=== PATIENT | male | born 1955 | race Caucasian/White ===

== ENCOUNTER 2019-03-09 17:55 | Emergency (ER) | payer OTHER ==
[2019-03-09] MEDS ORDERED: Sodium Chloride 0.9% 1000 ML 1,000 ML IV STA (18:45)
[2019-03-09] MEDS ORDERED: DUONEB 0.5-3 MG/3 ml Neb IH ONE ×2 (18:47→19:36)
[2019-03-09] MEDS ORDERED: Sodium Chloride 0.9% 1000 ML 1,000 ML ONE ×2 (18:52→20:42)
--- NOTE | 2019-03-09 18:53 | ERPHSYRPT ---
- History of Present Illness Time Seen by Provider: 03/09/19 18:48 Source: patient, family, EMS Patient Subjective Stated Complaint: Hyperglycemia Triage Nursing Assessment: Patient brought into ED via EMS and transferred to bed with assist of 1. Patient complains of hyperglycemia. Patient states he started vomiting and diarrhea on Tuesday. Patient states he has not taken any insulin since Tuesday. Patient states he feels weak. Patient's lungs clear a/p donna. No edema noted. Heart tones audible. Patient complains of generalized weakness 5/10 constant aching. Blood sugar reading HI on the meter. Physician History: 63 years old male with history of diabetes mellitus poorly controlled on multiple medication including insulin,hypertension, tobacco use presented in the ER with chief complaint of hyperglycemia with generalized weakness and fatigue. Patient reports he had sudden onset nausea with vomiting once and dry heaving along with abdominal pain and couple of episodes of loose stool 5 days ago. Since then he has not been eating and drinking. He has not taken his insulin since then. Her that she would usually stays below 300 but today was more than 300s when checked by EMS. He is complaining of mild abdominal soreness along with generalized feeling of tiredness no energy to do his routine activities. Denies any fever or chills. Subjective feeling of low- grade fever chills and malaise. Timing/Duration: day(s) (5), intermittent, sudden, worse Severity: moderate Associated Symptoms: nausea, vomiting Allergies/Adverse Reactions: No Known Drug Allergies Allergy (Verified 03/09/19 18:11) Home Medications: Aliskiren/Amlodipine Besylate [Tekamlo 300 mg-5 mg Tablet] 1 each PO DAILY 12/23 [History] Candesartan/Hydrochlorothiazid [Atacand Hct 32-12.5 mg Tab] 1 tab PO BID [History] Esomeprazole Magnesium [Nexium] 40 mg PO DAILY 12/23/12 [History] Fenofibrate [Lipofen] 150 mg PO DAILY 12/23/12 [History] Glimepiride 2 mg [Amaryl 2 MG] 2 mg PO DAILY 12/23/12 [History] Insulin Glargine [Lantus Insulin] 45 unit SQ HS 12/23/12 [History] Metformin HCl [Glumetza] 1,000 mg PO DAILY 12/23/12 [History] Naproxen Sodium 220 mg [Aleve 220 MG] 220 mg PO Q12H PRN PRN 12/23/12 [ History] Sitagliptin Phosphate [Januvia] 100 mg PO DAILY 12/23/12 [History] Hx Tetanus, Diphtheria Vaccination/Date Given: (UNKNOWN) Hx Influenza Vaccination/Date Given: Yes Hx Pneumococcal Vaccination/Date Given: No Immunizations Up to Date: Yes - Review of Systems Constitutional: Fever, Chills, Fatigue, Malaise, Weakness Eyes: No Symptoms Ears, Nose, & Throat: No Symptoms Respiratory: Cough, Wheezing Cardiac: No Symptoms Abdominal/Gastrointestinal: Abdominal Pain, Nausea, Vomiting, Diarrhea Genitourinary Symptoms: No Symptoms Musculoskeletal: Myalgias Skin: No Symptoms Neurological: No Symptoms Psychological: No Symptoms Endocrine: No Symptoms Hematologic/Lymphatic: No Symptoms Immunological/Allergic: No Symptoms - Past Medical History Pertinent Past Medical History: Yes Neurological History: No Pertinent History Cardiac History: High Cholesterol, Hypertension Endocrine Medical History: Diabetes Type II Musculoskeletal History: No Pertinent History GI Medical History: GERD, Hemorrhoids History: No Pertinent History Psycho-Social History: No Pertinent History Male Reproductive Disorders: No Pertinent History - Past Surgical History Past Surgical History: Yes Genitourinary: Other Other Surgical History: KIDNEY STONE - Social History Smoking Status: Current every day smoker How long have you smoked: years Exposure to second hand smoke: No Drug Use: none Patient Lives Alone: No - Nursing Vital Signs Nursing Vital Signs: Initial Vital Signs Temperature 97.5 F 03/09/19 18:12 Pulse Rate 106 H 03/09/19 18:12 Respiratory Rate 18 03/09/19 18:12 Blood Pressure 139/54 03/09/19 18:12 O2 Sat by Pulse Oximetry 99 03/09/19 18:12 Pain Scale Pain Intensity 5 - Physical Exam General Appearance: no apparent distress Eye Exam: PERRL/EOMI, eyes nml inspection Ears, Nose, Throat Exam: normal ENT inspection, TMs normal, pharyngeal erythema Neck Exam: normal inspection, non-tender, supple, full range of motion Respiratory Exam: normal breath sounds, lungs clear, airway intact, No chest tenderness Cardiovascular Exam: regular rate/rhythm, normal heart sounds, capillary refill <2 sec Gastrointestinal/Abdomen Exam: soft, normal bowel sounds, No tenderness, No distention, No mass, No guarding Back Exam: normal inspection Extremity Exam: normal inspection, normal range of motion, pelvis stable Neurologic Exam: alert, oriented x 3, cooperative, channel process supervisor II-XII nml as tested, other (flat affect) Skin Exam: normal color SpO2 Interpretation: normal SpO2: 99 O2 Delivery: Room Air - Course Nursing assessment & vital signs reviewed: Yes EKG Interpreted by Me: RATE (100), Sinus Rhythm, Right Harleigh Deviation, NORMAL INTERVALS, Non-specific ST Changes Ordered Tests: Active Orders 24 hr Category Date Time Status EKG-ER Only STAT Care 03/09/19 18:45 Active EKG-ER Only STAT Care 03/09/19 18:53 Active IV Insertion STAT Care 03/09/19 18:45 Active NPO (ED) STAT Care 03/09/19 18:45 Active OBSTR/ACUTE ABDOMEN SERIES Stat Exams 03/09/19 18:46 Taken BLOOD CULTURE Stat Lab 03/09/19 19:38 Received CBC W DIFF Stat Lab 03/09/19 19:38 Completed CMP Stat Lab 03/09/19 19:38 Completed LIPASE Stat Lab 03/09/19 19:38 Completed Lactic Acid Stat Lab 03/09/19 19:40 Completed Manual Differential NC Stat Lab 03/09/19 19:38 Completed TROPONIN Q3H Lab 03/09/19 19:38 Completed TROPONIN Q3H Lab 03/09/19 22:00 Ordered TROPONIN Q3H Lab 03/10/19 01:00 Ordered TROPONIN Q3H Lab 03/10/19 04:00 Ordered TROPONIN Q3H Lab 03/10/19 07:00 Ordered UA W/RFX UR CULTURE Stat Lab 03/09/19 19:54 Completed VENOUS BLOOD GAS Stat Lab 03/09/19 19:40 Completed Respiratory Therapy Assessment DAILY RT 03/09/19 20:02 Active Medication Summary Generic Name Dose Route Start Last Admin Trade Name Freq PRN Reason Stop Dose Admin Piperacillin Sod/Tazobactam 100 mls @ 100 mls/hr 03/09/19 19:54 Sod 3.375 gm/ Dextrose IV 03/09/19 20:53 STAT ONE Sodium Chloride 1,000 mls @ 150 mls/hr 03/09/19 20:00 03/09/19 20:42 Sodium Chloride 0.9% 1000 Ml IV 04/08/19 19:59 150 mls/hr .[id number] YANN Administration Discontinued Medications Generic Name Dose Route Start Last Admin Trade Name Freq PRN Reason Stop Dose Admin Albuterol Sulfate 2.5 mg 03/09/19 19:52 Proventil 2.5 Mg/3 Ml Neb IH 03/09/19 19:53 STAT ONE Albuterol/Ipratropium 3 ml 03/09/19 18:47 03/09/19 19:37 Duoneb 0.5-3 Mg/3 Ml Neb IH 03/09/19 18:48 3 ml STAT ONE Administration Albuterol/Ipratropium Confirm 03/09/19 19:36 Duoneb 0.5-3 Mg/3 Ml Neb Administered 03/09/19 19:37 Dose 3 ml IH .STK-MED ONE Calcium Gluconate 1,000 mg 03/09/19 19:52 03/09/19 20:10 Calcium Gluconate 10% 1000 Mg IV 03/09/19 19:53 1,000 mg STAT ONE Administration Calcium Gluconate Confirm 03/09/19 20:03 Calcium Gluconate 10% 1000 Mg Administered 03/09/19 20:04 Dose 1,000 mg IV .STK-MED ONE Dextrose 50 ml 03/09/19 19:52 D50w 50 Ml Abboject IV 03/09/19 19:53 STAT ONE Sodium Chloride 1,000 mls @ 999 mls/hr 03/09/19 18:45 03/09/19 19:01 Sodium Chloride 0.9% 1000 Ml IV 03/09/19 19:45 100 mls/hr .Q1H1M STA Administration Sodium Chloride Confirm 03/09/19 18:52 Sodium Chloride 0.9% 1000 Ml Administered 03/09/19 18:53 Dose 1,000 mls @ ud .ROUTE .STK-MED ONE Piperacillin Sod/Tazobactam Sod Confirm 03/09/19 20:24 Zosyn 3.375gm/100 Ml D5w Administered 03/09/19 20:25 Dose 3.375 gm in 100 mls @ ud IV .STK-MED ONE Insulin Human Regular 10 unit 03/09/19 19:52 03/09/19 20:20 Novolin R IV 03/09/19 19:53 Not Given STAT ONE Insulin Human Regular 8 unit 03/09/19 19:55 03/09/19 20:20 Novolin R IV 03/09/19 19:56 8 unit STAT ONE Administration Insulin Human Regular Confirm 03/09/19 20:04 Novolin R Administered 03/09/19 20:05 Dose 8 unit .ROUTE .STK-MED ONE Sodium Bicarbonate 50 meq 03/09/19 19:51 03/09/19 20:20 Sodium Bicarbonate 50 Meq/50 Ml Abboject IV 03/09/19 19:52 50 meq STAT ONE Administration Sodium Bicarbonate Confirm 03/09/19 20:04 Sodium Bicarbonate 50 Meq/50 Ml Vial Administered 03/09/19 20:05 Dose 50 meq .ROUTE .STK-MED ONE Sodium Polystyrene Sulfonate 30 g 03/09/19 19:52 Kayexylate 15 Gm/60 Ml PO 03/09/19 19:53 STAT ONE Sodium Polystyrene Sulfonate Confirm 03/09/19 20:04 Kayexylate 15 Gm/60 Ml Administered 03/09/19 20:05 Dose 30 g .ROUTE .STK-MED ONE Lab/Rad Data: Laboratory Result Diagrams 03/09/19 19:38 03/09/19 19:38 Laboratory Results 03/09/19 03/09/19 03/09/19 Range/Units 19:54 19:50 19:40 WBC (4.0-10.5) K/mm3 RBC (4.1-5.6) M/mm3 Hgb (12.5-18.0) gm/dl Hct (42-50) % MCV (78-100) fl MCH (26-32) pg MCHC (32-36) g/dl RDW (11.5-14.0) % Plt Count (150-450) K/mm3 MPV (7.5-11.0) fl Segmented Neutrophils (36.-66.) % Band Neutrophils (0.0-2.0) % Lymphocytes (Manual) (24-44) % Monocytes (Manual) (0.0-12.0) % Platelet Estimate (NORMAL) RBC Morphology pO2/FiO2 Ratio 21.0 % VBG pH 6.95 L* (7.32-7.42) VBG pCO2 at Pat Temp 21 L* (42-55) mm/Hg VBG pO2 at Pat Temp 76 H (25-40) mm/Hg VBG HCO3 4.6 L* (22-28) meq/L VBG O2 Sat (Lillian) 93.7 L (95-100) VBG Base Excess -26.2 L (-2.0-2.0) VBG Hemoglobin 17.1 VBG Carboxyhemoglobin 5.2 (0.0-6.9) % T HGB POC Potassium 6.2 H* (3.5-5.1) Sodium (137-145) mmol/L Potassium (3.5-5.1) mmol/L Chloride (98-107) mmol/L Carbon Dioxide (22-30) mmol/L BUN (9-20) mg/dL Creatinine (0.66-1.25) mg/dL Estimated GFR ML/MIN Glucose (74-106) mg/dL Lactic Acid (0.4-2.0) Calcium (8.4-10.2) mg/dL Total Bilirubin (0.2-1.3) mg/dL AST (17-59) U/L ALT (0-50) U/L Alkaline Phosphatase (38-126) U/L Troponin I (0.000-0.034) ng/mL Serum Total Protein (6.3-8.2) g/dL Albumin (3.5-5.0) g/dL Lipase (23-300) U/L Urine Color STRAW (YELLOW) Urine Appearance CLEAR (CLEAR) Urine pH 5.0 (5-6) Ur Specific [place] 1.021 (1.005-1.025) Urine Protein NEGATIVE (Negative) Urine Ketones MODERATE (NEGATIVE) Urine Blood MODERATE (0-5) Addy/ul Urine Nitrite NEGATIVE (NEGATIVE) Urine Bilirubin NEGATIVE (NEGATIVE) Urine Urobilinogen NEGATIVE (0-1) mg/dL Ur Leukocyte Esterase NEGATIVE (NEGATIVE) Urine WBC (Auto) 0-2 (0-5) /HPF Urine RBC (Auto) NONE (0-2) /HPF U Epithel Cells (Auto) NONE (FEW) /HPF Urine Bacteria (Auto) NONE (NEGATIVE) /HPF Urine Mucus (Auto) SLIGHT (NEGATIVE) /HPF Urine Culture Reflexed NO (NO) Urine Glucose >=500 (NEGATIVE) mg/dL Influenza Type A Ag NEGATIVE (NEGATIVE) Influenza Type B Ag NEGATIVE (NEGATIVE) RSV (PCR) NEGATIVE (Negative) 03/09/19 03/09/19 03/09/19 Range/Units 19:40 19:38 19:38 WBC (4.0-10.5) K/mm3 RBC (4.1-5.6) M/mm3 Hgb (12.5-18.0) gm/dl Hct (42-50) % MCV (78-100) fl MCH (26-32) pg MCHC (32-36) g/dl RDW (11.5-14.0) % Plt Count (150-450) K/mm3 MPV (7.5-11.0) fl Segmented Neutrophils (36.-66.) % Band Neutrophils (0.0-2.0) % Lymphocytes (Manual) (24-44) % Monocytes (Manual) (0.0-12.0) % Platelet Estimate (NORMAL) RBC Morphology pO2/FiO2 Ratio % VBG pH (7.32-7.42) VBG pCO2 at Pat Temp (42-55) mm/Hg VBG pO2 at Pat Temp (25-40) mm/Hg VBG HCO3 (22-28) meq/L VBG O2 Sat (Lillian) (95-100) VBG Base Excess (-2.0-2.0) VBG Hemoglobin VBG Carboxyhemoglobin (0.0-6.9) % T HGB POC Potassium (3.5-5.1) Sodium 132 L (137-145) mmol/L Potassium 5.9 H (3.5-5.1) mmol/L Chloride 91 L (98-107) mmol/L Carbon Dioxide < 5 L* (22-30) mmol/L BUN 57 H (9-20) mg/dL Creatinine 2.61 H (0.66-1.25) mg/dL Estimated GFR 26.4 ML/MIN Glucose 820 H* (74-106) mg/dL Lactic Acid 3.5 H (0.4-2.0) Calcium 9.8 (8.4-10.2) mg/dL Total Bilirubin 0.50 (0.2-1.3) mg/dL AST 21 (17-59) U/L ALT 23 (0-50) U/L Alkaline Phosphatase 134 H (38-126) U/L Troponin I < 0.012 (0.000-0.034) ng/mL Serum Total Protein 8.2 (6.3-8.2) g/dL Albumin 4.7 (3.5-5.0) g/dL Lipase 696 H (23-300) U/L Urine Color (YELLOW) Urine Appearance (CLEAR) Urine pH (5-6) Ur Specific [place] (1.005-1.025) Urine Protein (Negative) Urine Ketones (NEGATIVE) Urine Blood (0-5) Addy/ul Urine Nitrite (NEGATIVE) Urine Bilirubin (NEGATIVE) Urine Urobilinogen (0-1) mg/dL Ur Leukocyte Esterase (NEGATIVE) Urine WBC (Auto) (0-5) /HPF Urine RBC (Auto) (0-2) /HPF U Epithel Cells (Auto) (FEW) /HPF Urine Bacteria (Auto) (NEGATIVE) /HPF Urine Mucus (Auto) (NEGATIVE) /HPF Urine Culture Reflexed (NO) Urine Glucose (NEGATIVE) mg/dL Influenza Type A Ag (NEGATIVE) Influenza Type B Ag (NEGATIVE) RSV (PCR) (Negative) 03/09/19 Range/Units 19:38 WBC 18.2 H (4.0-10.5) K/mm3 RBC 6.03 H (4.1-5.6) M/mm3 Hgb 17.0 (12.5-18.0) gm/dl Hct 55.0 H (42-50) % MCV 91.2 (78-100) fl MCH 28.2 (26-32) pg MCHC 30.9 L (32-36) g/dl RDW 15.4 H (11.5-14.0) % Plt Count 294 (150-450) K/mm3 MPV 11.7 H (7.5-11.0) fl Segmented Neutrophils 80 H (36.-66.) % Band Neutrophils 8 H (0.0-2.0) % Lymphocytes (Manual) 3 L (24-44) % Monocytes (Manual) 9 (0.0-12.0) % Platelet Estimate NORMAL (NORMAL) RBC Morphology NORMAL pO2/FiO2 Ratio % VBG pH (7.32-7.42) VBG pCO2 at Pat Temp (42-55) mm/Hg VBG pO2 at Pat Temp (25-40) mm/Hg VBG HCO3 (22-28) meq/L VBG O2 Sat (Lillian) (95-100) VBG Base Excess (-2.0-2.0) VBG Hemoglobin VBG Carboxyhemoglobin (0.0-6.9) % T HGB POC Potassium (3.5-5.1) Sodium (137-145) mmol/L Potassium (3.5-5.1) mmol/L Chloride (98-107) mmol/L Carbon Dioxide (22-30) mmol/L BUN (9-20) mg/dL Creatinine (0.66-1.25) mg/dL Estimated GFR ML/MIN Glucose (74-106) mg/dL Lactic Acid (0.4-2.0) Calcium (8.4-10.2) mg/dL Total Bilirubin (0.2-1.3) mg/dL AST (17-59) U/L ALT (0-50) U/L Alkaline Phosphatase (38-126) U/L Troponin I (0.000-0.034) ng/mL Serum Total Protein (6.3-8.2) g/dL Albumin (3.5-5.0) g/dL Lipase (23-300) U/L Urine Color (YELLOW) Urine Appearance (CLEAR) Urine pH (5-6) Ur Specific [place] (1.005-1.025) Urine Protein (Negative) Urine Ketones (NEGATIVE) Urine Blood (0-5) Addy/ul Urine Nitrite (NEGATIVE) Urine Bilirubin (NEGATIVE) Urine Urobilinogen (0-1) mg/dL Ur Leukocyte Esterase (NEGATIVE) Urine WBC (Auto) (0-5) /HPF Urine RBC (Auto) (0-2) /HPF U Epithel Cells (Auto) (FEW) /HPF Urine Bacteria (Auto) (NEGATIVE) /HPF Urine Mucus (Auto) (NEGATIVE) /HPF Urine Culture Reflexed (NO) Urine Glucose (NEGATIVE) mg/dL Influenza Type A Ag (NEGATIVE) Influenza Type B Ag (NEGATIVE) RSV (PCR) (Negative) - Progress Progress: improved, re-examined Progress Note: 63 years old is brought in the ER for elevated blood sugar. Patient was mildly tachycardic and tachypneic on presentation. He is given IV fluids. Accu-Chek was reading high. Workup showed pH 6.9 with bicarbonate less than 5 and potassium of 5.9. He has a blood sugar of 820 with acute renal failure with creatinine of 2.6. He is given 8 units of insulin bolus and started on insulin drip. EKG showed normal sinus rhythm with no acute ST elevation. Patient denies any chest pain. Troponins are negative. I believe elevated potassium is secondary to lack of insulin but I have also given him a dose of calcium as well. I believe off her insulin and fluids potassium will improve. I hope they did x-rays of chest and abdomen wwith no obvious pathology. Abdomen is soft nontender. Has elevated white count 18 and hemoglobin 17 which I believe is reactive plus volume contraction. Has a lactate of 3.5 which is because of general acidemia but have given a does of antibiotic as well.Discussed with Dr. Maza, recommended transfer to . Discussed with the patient is accepted for transfer. Plan discussed with patient and family in detail who understand and agree with it. 03/09/19 20:[address] Ed Counseled pt/family regarding: lab results, diagnosis - Departure Departure Disposition: Transfer Clinical Impression: Hyperkalemia DKA (diabetic ketoacidoses) Qualifiers: Diabetes mellitus type: type 2 Diabetes mellitus complication detail: without coma Qualified Code(s): E11.10 - Type 2 diabetes mellitus with ketoacidosis without coma Sepsis Qualifiers: Sepsis type: sepsis due to unspecified organism Sepsis acute organ dysfunction status: with acute organ dysfunction Severe sepsis acute organ dysfunction type : acute renal failure Acute renal failure type: unspecified Severe sepsis shock status: without septic shock Qualified Code(s): A41.9 - Sepsis, unspecified organism; R65.20 - Severe sepsis without septic shock; N17.9 - Acute kidney failure, unspecified Condition: Fair Critical Care Time: Yes Critical Care Time(excluding separately billable procedures): Critical 75-104 mins Referrals: MAXWELL CASAS MD [Primary Care Provider] -
[2019-03-09 19:40] LABS: Mean Cell Volume 91.2 fl (78-100); Mean Corpuscular Hemoglobin 28.2 pg (26-32); Mean Corpuscular Hgb Concent. 30.9 g/dl (32-36); Mean Platelet Volume 11.7 fl (7.5-11.0); Platelet Count 294 K/mm3 (150-450); Red Blood Count 6.03 M/mm3 (4.1-5.6); Red Cell Distribution Width 15.4 % (11.5-14.0); White Blood Count 18.2 K/mm3 (4.0-10.5)
[2019-03-09 19:48] LABS: VBG BASE EXCESS -26.2 (-2.0-2.0); VBG CARBOXYHEMOGLOBIN 5.2 % T HGB (0.0-6.9); VBG HCO3- 4.6 meq/L (22-28); VBG HEMOGLOBIN 17.1; VBG O2 SATURATION 93.7 (95-100)
[2019-03-09 19:49] LABS: VBG POTASSIUM 6.2 (3.5-5.1); VBG pH 6.95 (7.32-7.42)
[2019-03-09] MEDS ORDERED: SODIUM BICARBONATE 50 MEQ/50 ML ABBOJECT IV ONE (19:51)
[2019-03-09] MEDS ORDERED: Calcium Gluconate 10% 1000 MG IV ONE ×2 (19:52→20:03)
[2019-03-09] MEDS ORDERED: Kayexylate 15 GM/60 ML PO ONE (19:52)
[2019-03-09] MEDS ORDERED: NovoLIN R IV ONE ×2 (19:52→19:55)
[2019-03-09] MEDS ORDERED: PROVENTIL 2.5 MG/3 ML NEB IH ONE (19:52)
[2019-03-09] MEDS ORDERED: D50W 50 ml Abboject IV ONE (19:52)
[2019-03-09 19:54] LABS: ALBUMIN 4.7 g/dL (3.5-5.0); ALKALINE PHOSPHATASE 134 U/L (38-126); BLOOD UREA NITROGEN 57 mg/dL (9-20); CHLORIDE 91 mmol/L (98-107); Calcium 9.8 mg/dL (8.4-10.2); Creatinine 1 2.61 mg/dL (0.66-1.25); LIPASE 696 U/L (23-300); SGOT/AST 21 U/L (17-59); SGPT/ALT 23 U/L (0-50); SODIUM 132 mmol/L (137-145); Total Protein 8.2 g/dL (6.3-8.2)
[2019-03-09] MEDS ORDERED: ZOSYN IV ONE (19:54)
[2019-03-09] MEDS ORDERED: D5W MINI IV ONE (19:54)
[2019-03-09] MEDS ORDERED: Sodium Chloride 0.9% 1000 ML 1,000 ML IV SCH (20:00)
[2019-03-09] MEDS ORDERED: Kayexylate 15 GM/60 ML ONE (20:04)
[2019-03-09] MEDS ORDERED: Sodium Bicarbonate 50 MEQ/50 ML VIAL ONE (20:04)
[2019-03-09] MEDS ORDERED: NovoLIN R ONE ×2 (20:04→20:49)
[2019-03-09 20:07] LABS: Appearance CLEAR (CLEAR); Bilirubin NEGATIVE (NEGATIVE); Blood MODERATE Ery/ul (0-5); Glucose >=500 mg/dL (NEGATIVE); Ketones MODERATE (NEGATIVE); Leukocyte Esterase NEGATIVE (NEGATIVE); Mucus SLIGHT /HPF (NEGATIVE); Nitrite NEGATIVE (NEGATIVE); Protein,Urine Dip NEGATIVE (Negative); Specific Gravity 1.021 (1.005-1.025); Urobilinogen NEGATIVE mg/dL (0-1); WBC 0-2 /HPF (0-5)
[2019-03-09 20:16] LABS: Glucose 820 mg/dL (74-106)
[2019-03-09 20:17] LABS: BAND 8 % (0.0-2.0); Carbon Dioxide < 5 mmol/L (22-30); Lymphocytes 3 % (24-44); Monocyte 9 % (0.0-12.0); Neutrophils 80 % (36.-66.); Potassium 5.9 mmol/L (3.5-5.1); Total Cells Counted 100
[2019-03-09 20:18] LABS: Platelet Estimate NORMAL (NORMAL)
[2019-03-09 20:21] LABS: INFLUENZA A NEGATIVE (NEGATIVE); INFLUENZA B NEGATIVE (NEGATIVE); RESPIRATORY SYNCTIAL VIRUS NEGATIVE (Negative)
[2019-03-09] MEDS ORDERED: Zosyn 3.375GM/100 Ml D5W 3.375 GM/100 ML IVPB IV ONE (20:24)
[2019-03-09] MEDS ORDERED: NOVOLIN R INSULIN (FOR DRIPS)** 100 UNITS in Sodium Chloride 0.9% 100 ML IVPB 100 ML IV PRN (20:45)
[2019-03-09] MEDS ORDERED: Sodium Chloride 0.9% 100 ML IVPB 100 ML IV ONE (20:49)
[2019-03-09 21:08] VITALS: BP 146/59; PULSE 102; O2SAT 98
--- NOTE | 2019-03-10 07:44 | XRAY ---
Indication: Abdomen pain and nausea. Comparison: None 2 views of the abdomen nonacute and nonobstructed. At least 2 gallstones, largest 1.5 cm. Remaining solid organs are unremarkable. Osseous structures intact with mild degenerative changes throughout the thoracolumbar spine. Single PA chest demonstrates normal heart and lungs with incidental small mediastinal calcified nodes. Bony thorax intact with mild degenerative changes. Impression: 1. Cholelithiasis. Gallbladder sonogram may yield further information if clinically warranted. 2. Nonacute one view chest.
== END 2019-03-09 21:20 | disposition short-term general hospital (02) ==
LOC: ED 17:55
DX: E87.5 Hyperkalemia (principal); E11.10 Type 2 diabetes mellitus with ketoacidosis without coma; A41.9 Sepsis, unspecified organism; R65.20 Severe sepsis without septic shock; N17.9 Acute kidney failure, unspecified
CPT/HCPCS: 36000; 36415; 74022; 80053; 81001; 82805; 83605; 83690; 84484; 85025; 87040; 87631; 93005; 94640; 96360; 96361; 96365; 96368; 96374; 96375; 99285; 99291; 99292; J0610; J1815; J2543; A9270-GY

== ENCOUNTER 2024-10-18 11:43 | Inpatient (IN) | payer MEDICARE ==
--- NOTE | 2024-10-18 12:08 | ERPHSYRPT ---
- History of Present Illness Time Seen by Provider: 10/18/24 11:55 Source: patient, EMS Exam Limitations: clinical condition Patient Subjective Stated Complaint: PT HERE HIGH BLOOD SUGAR TODAY, HOME HEALTH CARE IS UNSURE IF HE IS TAKING HES MEDS RIGHT, WAS RELEASED FROM [facility] YESTERDAY. PT IS A POOR HISTOIRAN Triage Nursing Assessment: PT ARRIVED PER EMS ALERT, RESP LABORED AT TIMES, RESP EASY, SKIN W/D/P. CHEST CLEAR, ABD SOFT, MOVES ALL EXT WELL Physician History: Patient is a 69-year-old diabetic male coming in with generalized weakness and elevated sugars. Patient has had multiple falls, denies any head injury however is supposedly on possible blood thinners. Patient was recently seen and admitted at [facility] for a stroke workup. Patient is unaware of his diagnosis afterwards. States that he was told to not take some of his diabetic medication. Home health aide that came to see him today did not feel the patient was doing adequately to stay at home on his own and saw that the patient's glucose was elevated therefore called EMS. Patient is currently complaining of low back pain post fall. Allergies/Adverse Reactions: No Known Drug Allergies Allergy (Verified 10/18/24 12:25) Home Medications: Aliskiren/Amlodipine Besylate [Tekamlo 300 mg-5 mg Tablet] 1 each PO DAILY 12/23/12 [History] Candesartan/Hydrochlorothiazid [Atacand Hct 32-12.5 mg Tab] 1 tab PO BID 12/23/12 [History] Esomeprazole Magnesium [Nexium] 40 mg PO DAILY 12/23/12 [History] Fenofibrate [Lipofen] 150 mg PO DAILY 12/23/12 [History] Glimepiride 2 mg [Amaryl 2 MG] 2 mg PO DAILY 12/23/12 [History] Insulin Glargine [Lantus Insulin] 45 unit SQ HS 12/23/12 [History] Metformin HCl [Glumetza] 1,000 mg PO DAILY 12/23/12 [History] Naproxen Sodium 220 mg [Aleve 220 MG] 220 mg PO Q12H PRN PRN 12/23/12 [History] Sitagliptin Phosphate [Januvia] 100 mg PO DAILY 12/23/12 [History] Hx Tetanus, Diphtheria Vaccination/Date Given: (UNKNOWN) Hx Influenza Vaccination/Date Given: Yes Hx Pneumococcal Vaccination/Date Given: No Immunizations Up to Date: Yes Travel Risk - International Travel Have you traveled outside of the country in past 3 weeks: No - Emerging Infectious Disease Are you exhibiting symptoms associated with any current EIDs: No - Review of Systems Constitutional: Lethargy, Malaise Eyes: No Symptoms Ears, Nose, & Throat: No Symptoms Respiratory: Cough Cardiac: No Symptoms Abdominal/Gastrointestinal: Nausea, Vomiting Genitourinary Symptoms: Frequency Musculoskeletal: No Symptoms Skin: No Symptoms Neurological: Dizziness Psychological: No Symptoms Endocrine: Polyuria - Past Medical History Pertinent Past Medical History: Yes Neurological History: No Pertinent History Cardiac History: High Cholesterol, Hypertension Endocrine Medical History: Diabetes Type II Musculoskeletal History: No Pertinent History GI Medical History: GERD, Hemorrhoids History: No Pertinent History Psycho-Social History: No Pertinent History Male Reproductive Disorders: No Pertinent History - Past Surgical History Past Surgical History: Yes Genitourinary: Other Other Surgical History: KIDNEY STONE - Social History Smoking Status: Current every day smoker How long have you smoked: years Exposure to second hand smoke: Yes Drug Use: none - Social Determinants of Health Will the patient participate in the screening: Declined to provide - Nursing Vital Signs Nursing Vital Signs: Initial Vital Signs O2 Sat by Pulse Oximetry 100 10/18/24 11:48 Pain Scale Pain Intensity 3 - Physical Exam General Appearance: moderate distress, lethargy Eye Exam: PERRL/EOMI Ears, Nose, Throat Exam: dry mucous membranes Neck Exam: normal inspection Respiratory Exam: diminished breath sounds Cardiovascular Exam: tachycardia Gastrointestinal/Abdomen Exam: soft, normal bowel sounds Back Exam: normal inspection Extremity Exam: normal inspection Neurologic Exam: alert, oriented x 3, cooperative Skin Exam: dry SpO2 Interpretation: normal SpO2: 98 O2 Delivery: Nasal Cannula - Course Nursing assessment & vital signs reviewed: Yes EKG Interpreted by Me: RATE (98), Sinus Rhythm, Right [place] Deviation, NORMAL INTERVALS, NORMAL QRS, NORMAL ST-T - Radiology Exams Chest X-ray Interpretation: Teleradiologist Report - CT Exams Head CT Interpretation: Tele-radiologist Report Abdomen/Pelvis CT Interpretation: Tele-radiologist Report Ordered Tests: Active Orders 24 hr Category Date Time Status EKG-ER Only STAT Care 10/18/24 11:49 Active IV Insertion STAT Care 10/18/24 11:49 Active ABDOMEN AND PELVIS W/0 CONTRAS [CT] Stat Exams 10/18/24 11:51 Completed CHEST 1 VIEW (PORTABLE) Stat Exams 10/18/24 11:49 Completed HEAD WITHOUT CONTRAST [CT] Stat Exams 10/18/24 11:51 Completed ARTERIAL BLOOD GASES Stat Lab 10/18/24 14:22 Completed BLOOD CULTURE Stat Lab 10/18/24 13:15 Received BMP Stat Lab 10/18/24 15:05 Completed BNPII [NT PRO BNPII] Stat Lab 10/18/24 12:20 Completed CBC W DIFF Stat Lab 10/18/24 12:10 Completed CMP Stat Lab 10/18/24 12:10 Completed ETHYL ALCOHOL Stat Lab 10/18/24 12:10 Completed LIPASE Stat Lab 10/18/24 12:10 Completed Lactic Acid Stat Lab 10/18/24 11:49 Completed Lactic Acid Stat Lab 10/18/24 14:19 Completed Lactic Acid Stat Lab 10/18/24 15:33 Completed MAGNESIUM Stat Lab 10/18/24 12:10 Completed POCT GLUCOSE Stat Lab 10/18/24 14:07 Completed POCT GLUCOSE Stat Lab 10/18/24 15:13 Completed PROTIME WITH INR Stat Lab 10/18/24 12:34 Completed PTT Stat Lab 10/18/24 12:34 Completed TROPONIN Q4H Lab 10/18/24 12:10 Completed TROPONIN Q4H Lab 10/18/24 15:05 Completed TROPONIN Q4H Lab 10/18/24 20:00 Ordered UA W/RFX UR CULTURE Stat Lab 10/18/24 12:41 Completed VENOUS BLOOD GAS Urgent Lab 10/18/24 11:49 Completed Respiratory Therapy Assessment DAILY RT 10/18/24 13:11 Completed Transfer Order Routine Transfer 10/18/24 Ordered Medication Summary Generic Name Dose Route Start Last Admin Trade Name Freq PRN Reason Stop Dose Admin INSULIN REGULAR IN 0.9 % NACL 100 unit in 100 mls @ 7.04 mls/hr 10/18/24 12:52 10/18/24 13:07 Myxredlin 100 Unit/100 Ml Bag IV 11/17/24 12:51 0.1 unit/kg/hr .[id number] PRN 7.04 mls/hr HYPERGLYCEMIA Administration Protocol 0.1 UNIT/KG/HR Sodium Chloride 1,000 mls @ 100 mls/hr 10/18/24 14:45 10/18/24 14:44 Sodium Chloride 0.9% 1000 Ml IV 11/17/24 14:44 100 mls/hr .Q10H YANN Administration Discontinued Medications Generic Name Dose Route Start Last Admin Trade Name Dru PRN Reason Stop Dose Admin Albuterol Sulfate 10 mg 10/18/24 12:53 10/18/24 13:10 Albuterol Sulfate 2.5 Mg/3 Ml Neb IH 10/18/24 12:54 10 mg STAT ONE Administration Albuterol Sulfate Confirm 10/18/24 13:00 Albuterol Sulfate 2.5 Mg/3 Ml Neb Administered 10/18/24 13:01 Dose 2.5 mg IH .STK-MED ONE Calcium Chloride Confirm 10/18/24 13:06 Calcium Chloride 100 Mg/Ml 10ml Inj. Administered 10/18/24 13:07 Dose 1,000 mg .ROUTE .STK-MED ONE Calcium Gluconate Confirm 10/18/24 13:01 Calcium Gluconate 1000 Mg/10 Ml Vial Administered 10/18/24 13:02 Dose 1,000 mg IV .STK-MED ONE Sodium Chloride Confirm 10/18/24 12:21 Sodium Chloride 0.9% 1000 Ml Administered 10/18/24 12:22 Dose 1,000 mls @ ud .ROUTE .STK-MED ONE Sodium Chloride 1,000 mls @ 999 mls/hr 10/18/24 12:25 10/18/24 13:55 Sodium Chloride 0.9% 1000 Ml IV 10/18/24 13:25 Infused .Q1H1M STA Infusion Piperacillin Sod/Tazobactam 100 mls @ 200 mls/hr 10/18/24 12:44 10/18/24 14:58 Sod 4.5 gm/ Sodium Chloride IV 10/18/24 13:13 Infused STAT STA Infusion Calcium Chloride 1,000 mg/ 110 mls @ 440 mls/hr 10/18/24 13:15 10/18/24 13:36 Sodium Chloride IV 10/18/24 13:29 Infused ONCE ONE Infusion Sodium Chloride Confirm 10/18/24 13:12 Sodium Chloride 0.9% Administered 10/18/24 13:13 Dose 100 mls @ ud .ROUTE .STK-MED ONE Sodium Chloride 1,000 mls @ 999 mls/hr 10/18/24 13:33 10/18/24 14:58 Sodium Chloride 0.9% 1000 Ml IV 10/18/24 14:33 Infused .Q1H1M STA Infusion Sodium Chloride Confirm 10/18/24 14:01 Sodium Chloride 0.9% Administered 10/18/24 14:02 Dose 100 mls @ ud .ROUTE .STK-MED ONE Sodium Chloride Confirm 10/18/24 14:18 Sodium Chloride 0.9% 1000 Ml Administered 10/18/24 14:19 Dose 1,000 mls @ ud .ROUTE .STK-MED ONE Piperacillin Sod/Tazobactam Sod Confirm 10/18/24 14:01 Piperacillin/Tazobactam Sodium 4.5 Gm Vial Administered 10/18/24 14:02 Dose 4.5 gm IV .STK-MED ONE Sodium Bicarbonate 50 meq 10/18/24 12:52 10/18/24 12:58 Sodium Bicarbonate 1 Meq/Ml 50ml Syringe IV 10/18/24 12:53 50 meq STAT ONE Administration Sodium Bicarbonate Confirm 10/18/24 12:57 Sodium Bicarbonate 1 Meq/Ml 50ml Syringe Administered 10/18/24 12:58 Dose 50 meq IV .STK-MED ONE Lab/Rad Data: Laboratory Result Diagrams 10/18/24 12:10 10/18/24 15:05 Laboratory Results 10/18/24 10/18/24 10/18/24 Range/Units 15:33 15:13 15:05 WBC (4.23-9.07) x10^3/uL RBC (4.63-6.08) x10^6/uL Hgb (13.7-17.5) g/dL Hct (40.1-51.0) % MCV (79.0-92.2) fL MCH (25.7-32.2) pg MCHC (32.3-36.5) g/dL RDW (11.6-14.4) % Plt Count (163-337) x10^3/uL MPV (9.4-12.4) fL Gran % (34.0-67.9) % Immature Gran % (Auto) (0.001-0.429) % Nucleat RBC Rel Count (0.00-0.2) % Eos # (Auto) (0.04-0.54) x10^3/uL Immature Gran # (Auto) (0.001-0.031) x10^3u/L Absolute Lymphs (auto) (1.32-3.57) x10^3/uL Absolute Monos (auto) (0.30-0.82) x10^3/uL Absolute Nucleated RBC (0.00-0.012) x10^3u/L Lymphocytes % (21.8-53.1) % Monocytes % (5.3-12.2) % Eosinophils % (0.8-7.0) % Basophils % (0.2-1.2) % Absolute Granulocytes (1.78-5.38) x10^3/uL Basophils # (0.01-0.08) x10^3/uL PT (9.4-12.5) SECONDS INR (0.8-3.0) APTT (25.1-36.5) SECONDS Puncture Site pCO2 (35-45) mmHg pO2 (75-100) mmHg pO2/FiO2 Ratio % Base Excess (-2.0-2.0) O2 Saturation (94-100) g/dF ABG pH (7.35-7.45) ABG HCO3 (22-28) ABG O2 Sat (Measured) (95-100) % Wesley Test VBG pH (7.32-7.42) VBG pCO2 at Pat Temp (42-55) mm/Hg VBG pO2 at Pat Temp (25-40) mm/Hg VBG HCO3 (22-28) meq/L VBG O2 Sat (Lillian) (95-100) VBG Base Excess (-2.0-2.0) VBG Hemoglobin VBG Carboxyhemoglobin (0.0-6.9) % T HGB Hemoglobin Carboxyhemoglobin (0.0-6.9) % THgb Methemoglobin (1.4-1.5) % POC Potassium (3.5-5.1) Temperature C POC O2 Flow Rate % Sodium 147 H (135-145) mmol/L Potassium 5.2 H (3.5-5.1) mmol/L Chloride 115 H (98-107) mmol/L Carbon Dioxide < 5 L* (22-30) mmol/L Anion Gap BUN 35 H (9-20) mg/dL Creatinine 1.49 H (0.66-1.25) mg/dL Estimated GFR 50.2 ML/MIN Glucose 398 H (74-106) mg/dL POC Glucometer 347 H (74 to 106) mg/dL Lactic Acid 2.2 H (0.4-2.0) Calcium 9.7 (8.4-10.2) mg/dL Magnesium (1.6-2.3) mg/dL Total Bilirubin (0.2-1.3) mg/dL AST (17-59) U/L ALT (0-50) U/L Alkaline Phosphatase (38-126) U/L Troponin I (0.000-0.033) ng/mL NT-Pro-B Natriuret Pep (<300) pg/mL Serum Total Protein (6.3-8.2) g/dL Albumin (3.5-5.0) g/dL Lipase (23-300) U/L Urine Color (Yellow) Urine Appearance (Clear) Urine pH (4.6-8.0) Ur Specific [place] (1.005-1.030) Urine Protein (Negative) Urine Glucose (UA) (Negative) mg/dL Urine Ketones (Negative) Urine Blood (Negative) Urine Nitrite (Negative) Urine Bilirubin (Negative) Urine Urobilinogen (0.2) mg/dL Ur Leukocyte Esterase (Negative) U Hyaline Cast (Auto) (0-2) /LPF Urine Microscopic RBC (0-5) /HPF Urine Microscopic WBC (0-5) /HPF Ur Epithelial Cells (None Seen) /HPF Urine Bacteria (None Seen) /HPF Urine Culture Reflexed (NO) Ethyl Alcohol (0-10) mg/dL Influenza Type A Ag (NEGATIVE) Influenza Type B Ag (NEGATIVE) RSV (PCR) (NEGATIVE) SARS-CoV-2 (PCR) (NEGATIVE) Slides for Path Review 10/18/24 10/18/24 10/18/24 Range/Units 15:05 14:22 14:19 WBC (4.23-9.07) x10^3/uL RBC (4.63-6.08) x10^6/uL Hgb (13.7-17.5) g/dL Hct (40.1-51.0) % MCV (79.0-92.2) fL MCH (25.7-32.2) pg MCHC (32.3-36.5) g/dL RDW (11.6-14.4) % Plt Count (163-337) x10^3/uL MPV (9.4-12.4) fL Gran % (34.0-67.9) % Immature Gran % (Auto) (0.001-0.429) % Nucleat RBC Rel Count (0.00-0.2) % Eos # (Auto) (0.04-0.54) x10^3/uL Immature Gran # (Auto) (0.001-0.031) x10^3u/L Absolute Lymphs (auto) (1.32-3.57) x10^3/uL Absolute Monos (auto) (0.30-0.82) x10^3/uL Absolute Nucleated RBC (0.00-0.012) x10^3u/L Lymphocytes % (21.8-53.1) % Monocytes % (5.3-12.2) % Eosinophils % (0.8-7.0) % Basophils % (0.2-1.2) % Absolute Granulocytes (1.78-5.38) x10^3/uL Basophils # (0.01-0.08) x10^3/uL PT (9.4-12.5) SECONDS INR (0.8-3.0) APTT (25.1-36.5) SECONDS Puncture Site LEFT BRACHIAL pCO2 8 L* (35-45) mmHg pO2 163 H* (75-100) mmHg pO2/FiO2 Ratio % Base Excess -25.7 L (-2.0-2.0) O2 Saturation 96.2 (94-100) g/dF ABG pH 7.06 L* (7.35-7.45) ABG HCO3 2.3 L* (22-28) ABG O2 Sat (Measured) 100.0 (95-100) % Wesley Test Yes VBG pH (7.32-7.42) VBG pCO2 at Pat Temp (42-55) mm/Hg VBG pO2 at Pat Temp (25-40) mm/Hg VBG HCO3 (22-28) meq/L VBG O2 Sat (Lillian) (95-100) VBG Base Excess (-2.0-2.0) VBG Hemoglobin VBG Carboxyhemoglobin (0.0-6.9) % T HGB Hemoglobin 14.3 Carboxyhemoglobin 2.9 (0.0-6.9) % THgb Methemoglobin 0.9 L (1.4-1.5) % POC Potassium (3.5-5.1) Temperature 37.0 C POC O2 Flow Rate 21 % Sodium (135-145) mmol/L Potassium 5.2 H (3.5-5.1) mmol/L Chloride (98-107) mmol/L Carbon Dioxide (22-30) mmol/L Anion Gap BUN (9-20) mg/dL Creatinine (0.66-1.25) mg/dL Estimated GFR ML/MIN Glucose (74-106) mg/dL POC Glucometer (74 to 106) mg/dL Lactic Acid 2.2 H (0.4-2.0) Calcium (8.4-10.2) mg/dL Magnesium (1.6-2.3) mg/dL Total Bilirubin (0.2-1.3) mg/dL AST (17-59) U/L ALT (0-50) U/L Alkaline Phosphatase (38-126) U/L Troponin I 0.021 (0.000-0.033) ng/mL NT-Pro-B Natriuret Pep (<300) pg/mL Serum Total Protein (6.3-8.2) g/dL Albumin (3.5-5.0) g/dL Lipase (23-300) U/L Urine Color (Yellow) Urine Appearance (Clear) Urine pH (4.6-8.0) Ur Specific [place] (1.005-1.030) Urine Protein (Negative) Urine Glucose (UA) (Negative) mg/dL Urine Ketones (Negative) Urine Blood (Negative) Urine Nitrite (Negative) Urine Bilirubin (Negative) Urine Urobilinogen (0.2) mg/dL Ur Leukocyte Esterase (Negative) U Hyaline Cast (Auto) (0-2) /LPF Urine Microscopic RBC (0-5) /HPF Urine Microscopic WBC (0-5) /HPF Ur Epithelial Cells (None Seen) /HPF Urine Bacteria (None Seen) /HPF Urine Culture Reflexed (NO) Ethyl Alcohol (0-10) mg/dL Influenza Type A Ag (NEGATIVE) Influenza Type B Ag (NEGATIVE) RSV (PCR) (NEGATIVE) SARS-CoV-2 (PCR) (NEGATIVE) Slides for Path Review 10/18/24 10/18/24 10/18/24 Range/Units 14:07 13:24 12:41 WBC (4.23-9.07) x10^3/uL RBC (4.63-6.08) x10^6/uL Hgb (13.7-17.5) g/dL Hct (40.1-51.0) % MCV (79.0-92.2) fL MCH (25.7-32.2) pg MCHC (32.3-36.5) g/dL RDW (11.6-14.4) % Plt Count (163-337) x10^3/uL MPV (9.4-12.4) fL Gran % (34.0-67.9) % Immature Gran % (Auto) (0.001-0.429) % Nucleat RBC Rel Count (0.00-0.2) % Eos # (Auto) (0.04-0.54) x10^3/uL Immature Gran # (Auto) (0.001-0.031) x10^3u/L Absolute Lymphs (auto) (1.32-3.57) x10^3/uL Absolute Monos (auto) (0.30-0.82) x10^3/uL Absolute Nucleated RBC (0.00-0.012) x10^3u/L Lymphocytes % (21.8-53.1) % Monocytes % (5.3-12.2) % Eosinophils % (0.8-7.0) % Basophils % (0.2-1.2) % Absolute Granulocytes (1.78-5.38) x10^3/uL Basophils # (0.01-0.08) x10^3/uL PT (9.4-12.5) SECONDS INR (0.8-3.0) APTT (25.1-36.5) SECONDS Puncture Site pCO2 (35-45) mmHg pO2 (75-100) mmHg pO2/FiO2 Ratio % Base Excess (-2.0-2.0) O2 Saturation (94-100) g/dF ABG pH (7.35-7.45) ABG HCO3 (22-28) ABG O2 Sat (Measured) (95-100) % Wesley Test VBG pH (7.32-7.42) VBG pCO2 at Pat Temp (42-55) mm/Hg VBG pO2 at Pat Temp (25-40) mm/Hg VBG HCO3 (22-28) meq/L VBG O2 Sat (Lillian) (95-100) VBG Base Excess (-2.0-2.0) VBG Hemoglobin VBG Carboxyhemoglobin (0.0-6.9) % T HGB Hemoglobin Carboxyhemoglobin (0.0-6.9) % THgb Methemoglobin (1.4-1.5) % POC Potassium (3.5-5.1) Temperature C POC O2 Flow Rate % Sodium (135-145) mmol/L Potassium (3.5-5.1) mmol/L Chloride (98-107) mmol/L Carbon Dioxide (22-30) mmol/L Anion Gap BUN (9-20) mg/dL Creatinine (0.66-1.25) mg/dL Estimated GFR ML/MIN Glucose (74-106) mg/dL POC Glucometer 386 H (74 to 106) mg/dL Lactic Acid (0.4-2.0) Calcium (8.4-10.2) mg/dL Magnesium (1.6-2.3) mg/dL Total Bilirubin (0.2-1.3) mg/dL AST (17-59) U/L ALT (0-50) U/L Alkaline Phosphatase (38-126) U/L Troponin I (0.000-0.033) ng/mL NT-Pro-B Natriuret Pep (<300) pg/mL Serum Total Protein (6.3-8.2) g/dL Albumin (3.5-5.0) g/dL Lipase (23-300) U/L Urine Color Yellow (Yellow) Urine Appearance Clear (Clear) Urine pH 5.0 (4.6-8.0) Ur Specific [place] 1.020 (1.005-1.030) Urine Protein 30 (Negative) Urine Glucose (UA) >=1000 A (Negative) mg/dL Urine Ketones >=160 A (Negative) Urine Blood Small A (Negative) Urine Nitrite Negative (Negative) Urine Bilirubin Negative (Negative) Urine Urobilinogen 0.2 (0.2) mg/dL Ur Leukocyte Esterase Negative (Negative) U Hyaline Cast (Auto) 3-5 A (0-2) /LPF Urine Microscopic RBC 0-2 (0-5) /HPF Urine Microscopic WBC 0-2 (0-5) /HPF Ur Epithelial Cells None Seen (None Seen) /HPF Urine Bacteria None Seen (None Seen) /HPF Urine Culture Reflexed NO (NO) Ethyl Alcohol (0-10) mg/dL Influenza Type A Ag NEGATIVE (NEGATIVE) Influenza Type B Ag NEGATIVE (NEGATIVE) RSV (PCR) NEGATIVE (NEGATIVE) SARS-CoV-2 (PCR) NEGATIVE (NEGATIVE) Slides for Path Review 10/18/24 10/18/24 10/18/24 Range/Units 12:34 12:20 12:10 WBC (4.23-9.07) x10^3/uL RBC (4.63-6.08) x10^6/uL Hgb (13.7-17.5) g/dL Hct (40.1-51.0) % MCV (79.0-92.2) fL MCH (25.7-32.2) pg MCHC (32.3-36.5) g/dL RDW (11.6-14.4) % Plt Count (163-337) x10^3/uL MPV (9.4-12.4) fL Gran % (34.0-67.9) % Immature Gran % (Auto) (0.001-0.429) % Nucleat RBC Rel Count (0.00-0.2) % Eos # (Auto) (0.04-0.54) x10^3/uL Immature Gran # (Auto) (0.001-0.031) x10^3u/L Absolute Lymphs (auto) (1.32-3.57) x10^3/uL Absolute Monos (auto) (0.30-0.82) x10^3/uL Absolute Nucleated RBC (0.00-0.012) x10^3u/L Lymphocytes % (21.8-53.1) % Monocytes % (5.3-12.2) % Eosinophils % (0.8-7.0) % Basophils % (0.2-1.2) % Absolute Granulocytes (1.78-5.38) x10^3/uL Basophils # (0.01-0.08) x10^3/uL PT 11.0 (9.4-12.5) SECONDS INR 1.01 (0.8-3.0) APTT 27.6 (25.1-36.5) SECONDS Puncture Site pCO2 (35-45) mmHg pO2 (75-100) mmHg pO2/FiO2 Ratio % Base Excess (-2.0-2.0) O2 Saturation (94-100) g/dF ABG pH (7.35-7.45) ABG HCO3 (22-28) ABG O2 Sat (Measured) (95-100) % Wesley Test VBG pH (7.32-7.42) VBG pCO2 at Pat Temp (42-55) mm/Hg VBG pO2 at Pat Temp (25-40) mm/Hg VBG HCO3 (22-28) meq/L VBG O2 Sat (Lillian) (95-100) VBG Base Excess (-2.0-2.0) VBG Hemoglobin VBG Carboxyhemoglobin (0.0-6.9) % T HGB Hemoglobin Carboxyhemoglobin (0.0-6.9) % THgb Methemoglobin (1.4-1.5) % POC Potassium (3.5-5.1) Temperature C POC O2 Flow Rate % Sodium (135-145) mmol/L Potassium (3.5-5.1) mmol/L Chloride (98-107) mmol/L Carbon Dioxide (22-30) mmol/L Anion Gap BUN (9-20) mg/dL Creatinine (0.66-1.25) mg/dL Estimated GFR ML/MIN Glucose (74-106) mg/dL POC Glucometer (74 to 106) mg/dL Lactic Acid (0.4-2.0) Calcium (8.4-10.2) mg/dL Magnesium (1.6-2.3) mg/dL Total Bilirubin (0.2-1.3) mg/dL AST (17-59) U/L ALT (0-50) U/L Alkaline Phosphatase (38-126) U/L Troponin I 0.015 (0.000-0.033) ng/mL NT-Pro-B Natriuret Pep 291 (<300) pg/mL Serum Total Protein (6.3-8.2) g/dL Albumin (3.5-5.0) g/dL Lipase (23-300) U/L Urine Color (Yellow) Urine Appearance (Clear) Urine pH (4.6-8.0) Ur Specific [place] (1.005-1.030) Urine Protein (Negative) Urine Glucose (UA) (Negative) mg/dL Urine Ketones (Negative) Urine Blood (Negative) Urine Nitrite (Negative) Urine Bilirubin (Negative) Urine Urobilinogen (0.2) mg/dL Ur Leukocyte Esterase (Negative) U Hyaline Cast (Auto) (0-2) /LPF Urine Microscopic RBC (0-5) /HPF Urine Microscopic WBC (0-5) /HPF Ur Epithelial Cells (None Seen) /HPF Urine Bacteria (None Seen) /HPF Urine Culture Reflexed (NO) Ethyl Alcohol (0-10) mg/dL Influenza Type A Ag (NEGATIVE) Influenza Type B Ag (NEGATIVE) RSV (PCR) (NEGATIVE) SARS-CoV-2 (PCR) (NEGATIVE) Slides for Path Review 10/18/24 10/18/24 10/18/24 Range/Units 12:10 12:10 11:49 WBC 24.7 H (4.23-9.07) x10^3/uL RBC 5.46 (4.63-6.08) x10^6/uL Hgb 14.1 (13.7-17.5) g/dL Hct 49.3 (40.1-51.0) % MCV 90.3 (79.0-92.2) fL MCH 25.8 (25.7-32.2) pg MCHC 28.6 L (32.3-36.5) g/dL RDW 17.2 H (11.6-14.4) % Plt Count 384 H (163-337) x10^3/uL MPV 10.8 (9.4-12.4) fL Gran % 84.2 H (34.0-67.9) % Immature Gran % (Auto) 4.0 H (0.001-0.429) % Nucleat RBC Rel Count 0.0 (0.00-0.2) % Eos # (Auto) 0.02 L (0.04-0.54) x10^3/uL Immature Gran # (Auto) 0.98 H (0.001-0.031) x10^3u/L Absolute Lymphs (auto) 1.07 L (1.32-3.57) x10^3/uL Absolute Monos (auto) 1.70 H (0.30-0.82) x10^3/uL Absolute Nucleated RBC 0.00 (0.00-0.012) x10^3u/L Lymphocytes % 4.3 L (21.8-53.1) % Monocytes % 6.9 (5.3-12.2) % Eosinophils % 0.1 L (0.8-7.0) % Basophils % 0.5 (0.2-1.2) % Absolute Granulocytes 20.79 H (1.78-5.38) x10^3/uL Basophils # 0.13 H (0.01-0.08) x10^3/uL PT (9.4-12.5) SECONDS INR (0.8-3.0) APTT (25.1-36.5) SECONDS Puncture Site pCO2 (35-45) mmHg pO2 (75-100) mmHg pO2/FiO2 Ratio 21.0 % Base Excess (-2.0-2.0) O2 Saturation (94-100) g/dF ABG pH (7.35-7.45) ABG HCO3 (22-28) ABG O2 Sat (Measured) (95-100) % Wesley Test VBG pH 6.98 L* (7.32-7.42) VBG pCO2 at Pat Temp 14 L* (42-55) mm/Hg VBG pO2 at Pat Temp 55 H (25-40) mm/Hg VBG HCO3 3.3 L* (22-28) meq/L VBG O2 Sat (Lillian) 82.5 L (95-100) VBG Base Excess -26.6 L (-2.0-2.0) VBG Hemoglobin 14.2 VBG Carboxyhemoglobin 2.4 (0.0-6.9) % T HGB Hemoglobin Carboxyhemoglobin (0.0-6.9) % THgb Methemoglobin (1.4-1.5) % POC Potassium 6.1 H* (3.5-5.1) Temperature C POC O2 Flow Rate % Sodium 142 (135-145) mmol/L Potassium 6.1 H* (3.5-5.1) mmol/L Chloride 105 (98-107) mmol/L Carbon Dioxide < 5 L* (22-30) mmol/L Anion Gap Not Reportable BUN 37 H (9-20) mg/dL Creatinine 1.63 H (0.66-1.25) mg/dL Estimated GFR 45.1 ML/MIN Glucose 492 H (74-106) mg/dL POC Glucometer (74 to 106) mg/dL Lactic Acid (0.4-2.0) Calcium 9.5 (8.4-10.2) mg/dL Magnesium 2.9 H (1.6-2.3) mg/dL Total Bilirubin 0.70 (0.2-1.3) mg/dL AST 39 (17-59) U/L ALT 38 (0-50) U/L Alkaline Phosphatase 103 (38-126) U/L Troponin I (0.000-0.033) ng/mL NT-Pro-B Natriuret Pep (<300) pg/mL Serum Total Protein 6.9 (6.3-8.2) g/dL Albumin 4.3 (3.5-5.0) g/dL Lipase 20 L (23-300) U/L Urine Color (Yellow) Urine Appearance (Clear) Urine pH (4.6-8.0) Ur Specific [place] (1.005-1.030) Urine Protein (Negative) Urine Glucose (UA) (Negative) mg/dL Urine Ketones (Negative) Urine Blood (Negative) Urine Nitrite (Negative) Urine Bilirubin (Negative) Urine Urobilinogen (0.2) mg/dL Ur Leukocyte Esterase (Negative) U Hyaline Cast (Auto) (0-2) /LPF Urine Microscopic RBC (0-5) /HPF Urine Microscopic WBC (0-5) /HPF Ur Epithelial Cells (None Seen) /HPF Urine Bacteria (None Seen) /HPF Urine Culture Reflexed (NO) Ethyl Alcohol < 10 (0-10) mg/dL Influenza Type A Ag (NEGATIVE) Influenza Type B Ag (NEGATIVE) RSV (PCR) (NEGATIVE) SARS-CoV-2 (PCR) (NEGATIVE) Slides for Path Review YES 10/18/24 Range/Units 11:49 WBC (4.23-9.07) x10^3/uL RBC (4.63-6.08) x10^6/uL Hgb (13.7-17.5) g/dL Hct (40.1-51.0) % MCV (79.0-92.2) fL MCH (25.7-32.2) pg MCHC (32.3-36.5) g/dL RDW (11.6-14.4) % Plt Count (163-337) x10^3/uL MPV (9.4-12.4) fL Gran % (34.0-67.9) % Immature Gran % (Auto) (0.001-0.429) % Nucleat RBC Rel Count (0.00-0.2) % Eos # (Auto) (0.04-0.54) x10^3/uL Immature Gran # (Auto) (0.001-0.031) x10^3u/L Absolute Lymphs (auto) (1.32-3.57) x10^3/uL Absolute Monos (auto) (0.30-0.82) x10^3/uL Absolute Nucleated RBC (0.00-0.012) x10^3u/L Lymphocytes % (21.8-53.1) % Monocytes % (5.3-12.2) % Eosinophils % (0.8-7.0) % Basophils % (0.2-1.2) % Absolute Granulocytes (1.78-5.38) x10^3/uL Basophils # (0.01-0.08) x10^3/uL PT (9.4-12.5) SECONDS INR (0.8-3.0) APTT (25.1-36.5) SECONDS Puncture Site pCO2 (35-45) mmHg pO2 (75-100) mmHg pO2/FiO2 Ratio % Base Excess (-2.0-2.0) O2 Saturation (94-100) g/dF ABG pH (7.35-7.45) ABG HCO3 (22-28) ABG O2 Sat (Measured) (95-100) % Wesley Test VBG pH (7.32-7.42) VBG pCO2 at Pat Temp (42-55) mm/Hg VBG pO2 at Pat Temp (25-40) mm/Hg VBG HCO3 (22-28) meq/L VBG O2 Sat (Lillian) (95-100) VBG Base Excess (-2.0-2.0) VBG Hemoglobin VBG Carboxyhemoglobin (0.0-6.9) % T HGB Hemoglobin Carboxyhemoglobin (0.0-6.9) % THgb Methemoglobin (1.4-1.5) % POC Potassium (3.5-5.1) Temperature C POC O2 Flow Rate % Sodium (135-145) mmol/L Potassium (3.5-5.1) mmol/L Chloride (98-107) mmol/L Carbon Dioxide (22-30) mmol/L Anion Gap BUN (9-20) mg/dL Creatinine (0.66-1.25) mg/dL Estimated GFR ML/MIN Glucose (74-106) mg/dL POC Glucometer (74 to 106) mg/dL Lactic Acid 3.5 H (0.4-2.0) Calcium (8.4-10.2) mg/dL Magnesium (1.6-2.3) mg/dL Total Bilirubin (0.2-1.3) mg/dL AST (17-59) U/L ALT (0-50) U/L Alkaline Phosphatase (38-126) U/L Troponin I (0.000-0.033) ng/mL NT-Pro-B Natriuret Pep (<300) pg/mL Serum Total Protein (6.3-8.2) g/dL Albumin (3.5-5.0) g/dL Lipase (23-300) U/L Urine Color (Yellow) Urine Appearance (Clear) Urine pH (4.6-8.0) Ur Specific [place] (1.005-1.030) Urine Protein (Negative) Urine Glucose (UA) (Negative) mg/dL Urine Ketones (Negative) Urine Blood (Negative) Urine Nitrite (Negative) Urine Bilirubin (Negative) Urine Urobilinogen (0.2) mg/dL Ur Leukocyte Esterase (Negative) U Hyaline Cast (Auto) (0-2) /LPF Urine Microscopic RBC (0-5) /HPF Urine Microscopic WBC (0-5) /HPF Ur Epithelial Cells (None Seen) /HPF Urine Bacteria (None Seen) /HPF Urine Culture Reflexed (NO) Ethyl Alcohol (0-10) mg/dL Influenza Type A Ag (NEGATIVE) Influenza Type B Ag (NEGATIVE) RSV (PCR) (NEGATIVE) SARS-CoV-2 (PCR) (NEGATIVE) Slides for Path Review - Progress Progress Note: 10/18/24 16:01 Patient was found to be in diabetic ketoacidosis. Patient was quite acidotic. Was started on insulin drip, given a appropriate level of fluids, albuterol for her hyperkalemia. Discussed patient's symptoms and findings with the patient's family and patient himself. Discussed with hospitalist who accepts the patient to the ICU. - Departure Departure Disposition: In-patient Admission Clinical Impression: DKA (diabetic ketoacidoses) Qualifiers: Diabetes mellitus type: other specified (including NGUYEN) Diabetes mellitus complication detail: without coma Qualified Code(s): E13.10 - Other specified diabetes mellitus with ketoacidosis without coma Condition: Critical Critical Care Time: Yes Critical Care Time(excluding separately billable procedures): Critical 105-134 mins Referrals: MAXWELL CASAS MD [Primary Care Provider, [facility]] - Follow up/PCP as directed
[2024-10-18 12:17] LABS: VBG BASE EXCESS -26.6 (-2.0-2.0); VBG CARBOXYHEMOGLOBIN 2.4 % T HGB (0.0-6.9); VBG FIO2 21.0 %; VBG HCO3- 3.3 meq/L (22-28); VBG HEMOGLOBIN 14.2; VBG O2 SATURATION 82.5 (95-100); VBG PO2 55.0 mm/Hg (25-40)
[2024-10-18 12:18] LABS: VBG PCO2 14.0 mm/Hg (42-55)
[2024-10-18 12:19] LABS: VBG POTASSIUM 6.1 (3.5-5.1)
--- NOTE | 2024-10-18 12:21 | XRAY ---
Indication: Short of breath. Comparison: March 09, 2019 Portable chest remains inflated and clear. Heart and mediastinal structures within normal limits again with incidental small mediastinal calcified nodes. Bony thorax intact again with osteopenia and mild degenerative changes. Impression: Nonacute chest with chronic features.
[2024-10-18 12:35] LABS: BASOPHIL % 0.5 % (0.2-1.2); Basophil (Absolute #) 0.13 x10^3/uL (0.01-0.08); Eosinophil (Absolute #) 0.02 x10^3/uL (0.04-0.54); Hematocrit 49.3 % (40.1-51.0); Hemoglobin 14.1 g/dL (13.7-17.5); IMMATURE GRAN # 0.98 x10^3u/L (0.001-0.031); IMMATURE GRAN % 4.0 % (0.001-0.429); Lymphocyte (Absolute #) 1.07 x10^3/uL (1.32-3.57); Mean Corpuscular Hemoglobin 25.8 pg (25.7-32.2); Mean Corpuscular Hgb Concent. 28.6 g/dL (32.3-36.5); Monocyte (Absolute #) 1.70 x10^3/uL (0.30-0.82); NUCLEATED RBC # 0.00 x10^3u/L (0.00-0.012); NUCLEATED RBC % 0.0 % (0.00-0.2); Platelet Count 384 x10^3/uL (163-337); Red Blood Count 5.46 x10^6/uL (4.63-6.08); White Blood Count 24.7 x10^3/uL (4.23-9.07)
[2024-10-18 12:49] LABS: Glucose, Urine >=1000 mg/dL (Negative); Protein,Urine Dip 30 (Negative); RBC 0-2 /HPF (0-5); WBC 0-2 /HPF (0-5)
[2024-10-18 12:51] LABS: Calcium 9.5 mg/dL (8.4-10.2); Creatinine 1 1.63 mg/dL (0.66-1.25); EST GLOMERULAR FILTRATION RATE 45.1 ML/MIN; ETHYL ALCOHOL < 10 mg/dL (0-10); Glucose 492 mg/dL (74-106); SGOT/AST 39 U/L (17-59); SGPT/ALT 38 U/L (0-50); Total Protein 6.9 g/dL (6.3-8.2)
[2024-10-18 12:52] LABS: INR 1.01 (0.8-3.0); PROTIME 11.0 SECONDS (9.4-12.5); PTT 27.6 SECONDS (25.1-36.5)
[2024-10-18 12:53] LABS: Potassium 6.1 mmol/L (3.5-5.1)
[2024-10-18] MEDS ORDERED: SODIUM BICARBONATE 50 MEQ/50 ML ABBOJECT IV ONE (12:57)
[2024-10-18] MEDS: SODIUM BICARBONATE 50 MEQ/50 ML ABBOJECT IV ONE (12:58)
[2024-10-18] MEDS ORDERED: CALCIUM CHLORIDE 10% 1000 MG IV ONE (13:00)
[2024-10-18] MEDS ORDERED: PROVENTIL 2.5 MG/3 ML NEB IH ONE (13:00)
[2024-10-18] MEDS ORDERED: Calcium Gluconate 10% 1000 MG IV ONE (13:01)
[2024-10-18 13:02] LABS: Carbon Dioxide < 5 mmol/L (22-30)
[2024-10-18] MEDS ORDERED: CALCIUM CHLORIDE 10% 1000 MG ONE (13:06)
[2024-10-18] MEDS: MYXREDLIN 100 UNIT/100 ML BAG 100 UNIT/100 ML PLAST..BAG IV PRN (13:07)
[2024-10-18] MEDS: PROVENTIL 2.5 MG/3 ML NEB IH ONE (13:10)
[2024-10-18] MEDS: CALCIUM CHLORIDE 10% 1000 MG 1,000 MG in Sodium Chloride 0.9% 100 ML IV ONE (13:17)
[2024-10-18 13:38] LABS: Slide Review 1 YES
[2024-10-18] MEDS ORDERED: PIPERACILLIN/TAZOBACTAM IV ONE (14:01)
[2024-10-18 14:05] LABS: INFLUENZA A NEGATIVE (NEGATIVE); INFLUENZA B NEGATIVE (NEGATIVE); RESPIRATORY SYNCTIAL VIRUS NEGATIVE (NEGATIVE); SARS-CoV-2 Xpert Express NEGATIVE (NEGATIVE)
--- NOTE | 2024-10-18 14:29 | XRAY ---
Indication: Fall. Multiple contiguous axial images obtained through the head without contrast. Comparison: None Age-appropriate global atrophy and minimal periventricular degenerative microischemia bilaterally. No acute intracranial hemorrhage, abnormal extra-axial fluid collection, or mass effect. 4th ventricle is midline without hydrocephalus. Bony calvarium intact. Visualized paranasal sinuses and mastoid air cells are clear. Impression: Nonacute senile brain.
--- NOTE | 2024-10-18 14:45 | XRAY ---
Indication: Low back/pelvic pain following fall. Vomiting. Multiple contiguous axial images obtained through the abdomen and pelvis without contrast. Comparison: None Lung bases clear. Heart not enlarged. Stomach is mildly fluid distended. Stomach and bowel loops appear nonobstructed. Radiopacities throughout colon either ingested medication, bismuth, or barium. Minimal distal descending diverticulosis without diverticulitis. Urinary bladder is markedly distended either outlet obstruction versus neurogenic bladder. Enlarged/nodular prostate gland does impress on the base of the urinary bladder. Incidental 3 nonobstructing left renal punctate calculi, 2 gallstones largest 1.4 cm, mild diffuse fatty liver, and tiny splenic calcified granulomas. Remaining pancreas, adrenal glands, kidneys, and ureters are unremarkable for noncontrast exam. Mild scattered aortoiliac calcifications without AAA. Osseous structures intact with osteopenia, mild/moderate degenerative changes throughout thoracolumbar spine, and small superior L5 Schmorl node. Impression: 1. Markedly distended urinary bladder. Rule out outlet obstruction versus neurogenic bladder. 2. Chronic findings including enlarged/nodular prostate, colonic diverticulosis, nonobstructing left renal punctate calculi, cholelithiasis, fatty liver, arteriosclerotic disease, chronic bony findings, and old granulomatous disease.
[2024-10-18 15:10] LABS: ABG HEMOGLOBIN 14.3; ABG POTASSIUM 5.2 (3.5-5.1); ARTERIAL BLD GAS O2 SATURATION 100.0 % (95-100); ARTERIAL BLOOD GAS BASE EXCESS -25.7 (-2.0-2.0); ARTERIAL BLOOD GAS FIO2 21 %; ARTERIAL BLOOD GAS PO2 163 mmHg (75-100); ARTERIAL BLOOD GAS TEMPERATURE 37.0 C; HCO3- 2.3 (22-28); HGB O2 SAT 96.2 g/dF (94-100); Methhemoglobin 0.9 % (1.4-1.5)
[2024-10-18 15:11] LABS: ARTERIAL BLOOD GAS PCO2 8 mmHg (35-45)
[2024-10-18 15:12] LABS: ABG SITE LEFT BRACHIAL; ALLEN TEST OK? Yes
[2024-10-18 15:24] LABS: Calcium 9.7 mg/dL (8.4-10.2); Creatinine 1 1.49 mg/dL (0.66-1.25); EST GLOMERULAR FILTRATION RATE 50.2 ML/MIN; Glucose 398 mg/dL (74-106); Potassium 5.2 mmol/L (3.5-5.1)
[2024-10-18 15:37] LABS: Carbon Dioxide < 5 mmol/L (22-30)
--- NOTE | 2024-10-18 16:21 | PCM.HP ---
History of Present Illness - Chief Complaint Chief Complaint: DKA Date: 10/18/24 History of Present Illness: is a 69 year old male with a pmhx of HLD, HTN, GERD, and DMII who presented to ED 10/18/24 with complaints of weakness, nausea, and vomiting since yesterday. He reports falling out of bed last Tuesday and has recently been having an unsteady gait which prompted him to seek medical attention at [facility] where he was recently admitted and discharged yesterday. He is a poor historian regarding his medical regimen, stating he was recently hospitalized at a [facility] facility for a stroke workup but is unclear about the outcome. He reports that he was instructed not to take his insulin and has not taken any since last Tuesday. We will obtain these records. A home health aide who evaluated him earlier today found him clinically unfit to remain alone at home and noted severe hyperglycemia, prompting EMS activation. On arrival, the patient also endorsed low back pain following his recent fall. Upon arrival to ED patient was tachycardic though otherwise hemodynamically stable. Lab findings remarkable for WBC , serum sodium 147 , potassium 5.2 , chloride 115 , BUN 35, and creatinine 1.49. Glucose was critically high at 492 on admission, later trending down to 347 mg/dL after intervention. Serum bicarbonate was severely depressed (<5 mmol/L) with an anion gap metabolic acidosis. Arterial blood gases showed severe metabolic acidosis with partial respiratory compensation. Lactic acid was elevated at 3.5 on admission, later improving to 2.2. Urine studies were notable for glucosuria >1000 and ketones >160, confirming ketoacidosis. Magnesium was elevated at 2.9. Respiratory viral panel was negative, reducing concern for viral trigger. Imaging revealed multiple acute and chronic findings. CT head demonstrated non-acute senile c hanges without acute intracranial process, reducing immediate concern for traumatic bleed in the context of falls and possible anticoagulation. CT abdomen/pelvis showed a markedly distended urinary bladder raising concern for urinary outlet obstruction versus neurogenic bladder, with chronic findings of enlarged prostate, chronic diverticulosis, non-obstructive left renal calculi, cholelithiasis, fatty liver, and generalized arteriosclerotic disease. Chest X- ray revealed chronic cardiopulmonary changes without acute process. Patient started on insulin drip, given sodium bicarb 50meq, IVF bolus of 2L, Zosyn, proventil, and calcium chloride. Admitted for DKA. - Review of Systems Constitutional: Weakness Eyes: No Symptoms Ears, Nose, & Throat: No Symptoms Respiratory: Short Of Breath Cardiac: No Symptoms Abdominal/Gastrointestinal: Nausea, Vomiting Genitourinary Symptoms: No Symptoms Musculoskeletal: Back Pain Skin: No Symptoms Neurological: Dizziness Psychological: No Symptoms Endocrine: No Symptoms Hematologic/Lymphatic: No Symptoms Immunological/Allergic: No Symptoms Medications & Allergies Home Medications: Home Medication List Aliskiren/Amlodipine Besylate [Tekamlo 300 mg-5 mg Tablet] 1 each PO DAILY 12/23/12 [History Confirmed 12/23/12] Candesartan/Hydrochlorothiazid [Atacand Hct 32-12.5 mg Tab] 1 tab PO BID 12/23/12 [History Confirmed 12/23/12] Esomeprazole Magnesium [Nexium] 40 mg PO DAILY 12/23/12 [History Confirmed 12/23/12] Fenofibrate [Lipofen] 150 mg PO DAILY 12/23/12 [History Confirmed 12/23/12] Glimepiride 2 mg [Amaryl 2 MG] 2 mg PO DAILY 12/23/12 [History Confirmed 12/23/12] Insulin Glargine [Lantus Insulin] 45 unit SQ HS 12/23/12 [History Confirmed 12/23/12] Metformin HCl [Glumetza] 1,000 mg PO DAILY 12/23/12 [History Confirmed 12/23/12] Naproxen Sodium 220 mg [Aleve 220 MG] 220 mg PO Q12H PRN PRN 12/23/12 [History Confirmed 12/23/12] Sitagliptin Phosphate [Januvia] 100 mg PO DAILY 12/23/12 [History Confirmed 12/23/12] cephALEXin [Keflex] 500 mg PO TID #30 capsule 12/23/12 [Rx] Allergies/Adverse Reactions: Allergies Allergy/AdvReac Type Severity Reaction Status Date / Time No Known Drug Allergies Allergy Verified 10/18/24 12:25 - Past Medical History Past Medical History: Yes Neurological History: No Pertinent History Cardiac History: High Cholesterol, Hypertension Endocrine Medical History: Diabetes Type II Musculoskelatal History: No Pertinent History GI Medical History: GERD, Hemorrhoids History: No Pertinent History Pyscho-Social History: No Pertinent History Male Reproductive Disorders: No Pertinent History - Past Surgical History Past Surgical History: Yes Genitourinary Surgical Hx: Other Other Surgical History: KIDNEY STONE Significant Family History: cancer - Social History Smoking Status: Current every day smoker How long have you smoked: years Exposure to second hand smoke: Yes Alcohol: None Drug Use: none - Social Determinants of Health Will the patient participate in the screening: Declined to provide - Physical Exam Vital Signs: Vital Signs - 24 hr Temp Pulse Resp BP BP Pulse Ox 10/18/24 16:03 98 10/18/24 16:00 99 H 21 136/65 100 10/18/24 15:45 103 H 21 128/70 100 10/18/24 15:30 139 H 23 131/64 100 10/18/24 15:15 140 H 23 142/71 100 10/18/24 15:07 118 H 21 112/51 100 10/18/24 14:46 107 H 21 137/57 100 10/18/24 14:37 135 H 23 112/60 100 10/18/24 14:36 149 H 23 100 10/18/24 14:30 134 H 22 92/63 99 10/18/24 14:15 98 H 22 124/71 100 10/18/24 14:00 102 H 22 123/69 100 10/18/24 13:47 97 H 23 115/44 84 L 10/18/24 13:46 129 H 23 97 10/18/24 13:43 129 H 24 10/18/24 13:20 104 H 23 100 10/18/24 13:11 104 H 24 98 10/18/24 13:10 105 H 24 10/18/24 13:03 103 H 22 10/18/24 12:30 104 H 22 131/64 10/18/24 12:20 103 H 24 136/54 10/18/24 12:00 102 H 32 H 147/62 96 10/18/24 11:57 96.8 F 100 H 26 H 150/60 98 10/18/24 11:49 96 H 25 H 150/60 96 10/18/24 11:48 100 General Appearance: mild distress Neurologic Exam: alert, oriented x 3, cooperative Neck Exam: normal inspection Respiratory Exam: diminished breath sounds Cardiovascular Exam: tachycardia Gastrointestinal/Abdomen Exam: soft, normal bowel sounds Back Exam: normal inspection Extremity Exam: normal inspection Skin Exam: normal color Results - Labs Lab/Micro Results: Lab Results-Last 24 Hours 10/18/24 10/18/24 10/18/24 Range/Units 11:49 11:49 12:10 WBC 24.7 H (4.23-9.07) x10^3/uL RBC 5.46 (4.63-6.08) x10^6/uL Hgb 14.1 (13.7-17.5) g/dL Hct 49.3 (40.1-51.0) % MCV 90.3 (79.0-92.2) fL MCH 25.8 (25.7-32.2) pg MCHC 28.6 L (32.3-36.5) g/dL RDW 17.2 H (11.6-14.4) % Plt Count 384 H (163-337) x10^3/uL MPV 10.8 (9.4-12.4) fL Gran % 84.2 H (34.0-67.9) % Immature Gran % (Auto) 4.0 H (0.001-0.429) % Nucleat RBC Rel Count 0.0 (0.00-0.2) % Eos # (Auto) 0.02 L (0.04-0.54) x10^3/uL Immature Gran # (Auto) 0.98 H (0.001-0.031) x10^3u/L Absolute Lymphs (auto) 1.07 L (1.32-3.57) x10^3/uL Absolute Monos (auto) 1.70 H (0.30-0.82) x10^3/uL Absolute Nucleated RBC 0.00 (0.00-0.012) x10^3u/L Lymphocytes % 4.3 L (21.8-53.1) % Monocytes % 6.9 (5.3-12.2) % Eosinophils % 0.1 L (0.8-7.0) % Basophils % 0.5 (0.2-1.2) % Absolute Granulocytes 20.79 H (1.78-5.38) x10^3/uL Basophils # 0.13 H (0.01-0.08) x10^3/uL PT (9.4-12.5) SECONDS INR (0.8-3.0) APTT (25.1-36.5) SECONDS Puncture Site pCO2 (35-45) mmHg pO2 (75-100) mmHg pO2/FiO2 Ratio 21.0 % Base Excess (-2.0-2.0) O2 Saturation (94-100) g/dF ABG pH (7.35-7.45) ABG HCO3 (22-28) ABG O2 Sat (Measured) (95-100) % Wesley Test VBG pH 6.98 L* (7.32-7.42) VBG pCO2 at Pat Temp 14 L* (42-55) mm/Hg VBG pO2 at Pat Temp 55 H (25-40) mm/Hg VBG HCO3 3.3 L* (22-28) meq/L VBG O2 Sat (Lillian) 82.5 L (95-100) VBG Base Excess -26.6 L (-2.0-2.0) VBG Hemoglobin 14.2 VBG Carboxyhemoglobin 2.4 (0.0-6.9) % T HGB Hemoglobin Carboxyhemoglobin (0.0-6.9) % THgb Methemoglobin (1.4-1.5) % POC Potassium 6.1 H* (3.5-5.1) Temperature C POC O2 Flow Rate % Sodium (135-145) mmol/L Potassium (3.5-5.1) mmol/L Chloride (98-107) mmol/L Carbon Dioxide (22-30) mmol/L Anion Gap BUN (9-20) mg/dL Creatinine (0.66-1.25) mg/dL Estimated GFR ML/MIN Glucose (74-106) mg/dL POC Glucometer (74 to 106) mg/dL Lactic Acid 3.5 H (0.4-2.0) Calcium (8.4-10.2) mg/dL Magnesium (1.6-2.3) mg/dL Total Bilirubin (0.2-1.3) mg/dL AST (17-59) U/L ALT (0-50) U/L Alkaline Phosphatase (38-126) U/L Troponin I (0.000-0.033) ng/mL NT-Pro-B Natriuret Pep (<300) pg/mL Serum Total Protein (6.3-8.2) g/dL Albumin (3.5-5.0) g/dL Lipase (23-300) U/L Urine Color (Yellow) Urine Appearance (Clear) Urine pH (4.6-8.0) Ur Specific [place] (1.005-1.030) Urine Protein (Negative) Urine Glucose (UA) (Negative) mg/dL Urine Ketones (Negative) Urine Blood (Negative) Urine Nitrite (Negative) Urine Bilirubin (Negative) Urine Urobilinogen (0.2) mg/dL Ur Leukocyte Esterase (Negative) U Hyaline Cast (Auto) (0-2) /LPF Urine Microscopic RBC (0-5) /HPF Urine Microscopic WBC (0-5) /HPF Ur Epithelial Cells (None Seen) /HPF Urine Bacteria (None Seen) /HPF Urine Culture Reflexed (NO) Ethyl Alcohol (0-10) mg/dL Influenza Type A Ag (NEGATIVE) Influenza Type B Ag (NEGATIVE) RSV (PCR) (NEGATIVE) SARS-CoV-2 (PCR) (NEGATIVE) Slides for Path Review YES 10/18/24 10/18/24 10/18/24 Range/Units 12:10 12:10 12:20 WBC (4.23-9.07) x10^3/uL RBC (4.63-6.08) x10^6/uL Hgb (13.7-17.5) g/dL Hct (40.1-51.0) % MCV (79.0-92.2) fL MCH (25.7-32.2) pg MCHC (32.3-36.5) g/dL RDW (11.6-14.4) % Plt Count (163-337) x10^3/uL MPV (9.4-12.4) fL Gran % (34.0-67.9) % Immature Gran % (Auto) (0.001-0.429) % Nucleat RBC Rel Count (0.00-0.2) % Eos # (Auto) (0.04-0.54) x10^3/uL Immature Gran # (Auto) (0.001-0.031) x10^3u/L Absolute Lymphs (auto) (1.32-3.57) x10^3/uL Absolute Monos (auto) (0.30-0.82) x10^3/uL Absolute Nucleated RBC (0.00-0.012) x10^3u/L Lymphocytes % (21.8-53.1) % Monocytes % (5.3-12.2) % Eosinophils % (0.8-7.0) % Basophils % (0.2-1.2) % Absolute Granulocytes (1.78-5.38) x10^3/uL Basophils # (0.01-0.08) x10^3/uL PT (9.4-12.5) SECONDS INR (0.8-3.0) APTT (25.1-36.5) SECONDS Puncture Site pCO2 (35-45) mmHg pO2 (75-100) mmHg pO2/FiO2 Ratio % Base Excess (-2.0-2.0) O2 Saturation (94-100) g/dF ABG pH (7.35-7.45) ABG HCO3 (22-28) ABG O2 Sat (Measured) (95-100) % Wesley Test VBG pH (7.32-7.42) VBG pCO2 at Pat Temp (42-55) mm/Hg VBG pO2 at Pat Temp (25-40) mm/Hg VBG HCO3 (22-28) meq/L VBG O2 Sat (Lillian) (95-100) VBG Base Excess (-2.0-2.0) VBG Hemoglobin VBG Carboxyhemoglobin (0.0-6.9) % T HGB Hemoglobin Carboxyhemoglobin (0.0-6.9) % THgb Methemoglobin (1.4-1.5) % POC Potassium (3.5-5.1) Temperature C POC O2 Flow Rate % Sodium 142 (135-145) mmol/L Potassium 6.1 H* (3.5-5.1) mmol/L Chloride 105 (98-107) mmol/L Carbon Dioxide < 5 L* (22-30) mmol/L Anion Gap Not Reportable BUN 37 H (9-20) mg/dL Creatinine 1.63 H (0.66-1.25) mg/dL Estimated GFR 45.1 ML/MIN Glucose 492 H (74-106) mg/dL POC Glucometer (74 to 106) mg/dL Lactic Acid (0.4-2.0) Calcium 9.5 (8.4-10.2) mg/dL Magnesium 2.9 H (1.6-2.3) mg/dL Total Bilirubin 0.70 (0.2-1.3) mg/dL AST 39 (17-59) U/L ALT 38 (0-50) U/L Alkaline Phosphatase 103 (38-126) U/L Troponin I 0.015 (0.000-0.033) ng/mL NT-Pro-B Natriuret Pep 291 (<300) pg/mL Serum Total Protein 6.9 (6.3-8.2) g/dL Albumin 4.3 (3.5-5.0) g/dL Lipase 20 L (23-300) U/L Urine Color (Yellow) Urine Appearance (Clear) Urine pH (4.6-8.0) Ur Specific [place] (1.005-1.030) Urine Protein (Negative) Urine Glucose (UA) (Negative) mg/dL Urine Ketones (Negative) Urine Blood (Negative) Urine Nitrite (Negative) Urine Bilirubin (Negative) Urine Urobilinogen (0.2) mg/dL Ur Leukocyte Esterase (Negative) U Hyaline Cast (Auto) (0-2) /LPF Urine Microscopic RBC (0-5) /HPF Urine Microscopic WBC (0-5) /HPF Ur Epithelial Cells (None Seen) /HPF Urine Bacteria (None Seen) /HPF Urine Culture Reflexed (NO) Ethyl Alcohol < 10 (0-10) mg/dL Influenza Type A Ag (NEGATIVE) Influenza Type B Ag (NEGATIVE) RSV (PCR) (NEGATIVE) SARS-CoV-2 (PCR) (NEGATIVE) Slides for Path Review 10/18/24 10/18/24 10/18/24 Range/Units 12:34 12:41 13:24 WBC (4.23-9.07) x10^3/uL RBC (4.63-6.08) x10^6/uL Hgb (13.7-17.5) g/dL Hct (40.1-51.0) % MCV (79.0-92.2) fL MCH (25.7-32.2) pg MCHC (32.3-36.5) g/dL RDW (11.6-14.4) % Plt Count (163-337) x10^3/uL MPV (9.4-12.4) fL Gran % (34.0-67.9) % Immature Gran % (Auto) (0.001-0.429) % Nucleat RBC Rel Count (0.00-0.2) % Eos # (Auto) (0.04-0.54) x10^3/uL Immature Gran # (Auto) (0.001-0.031) x10^3u/L Absolute Lymphs (auto) (1.32-3.57) x10^3/uL Absolute Monos (auto) (0.30-0.82) x10^3/uL Absolute Nucleated RBC (0.00-0.012) x10^3u/L Lymphocytes % (21.8-53.1) % Monocytes % (5.3-12.2) % Eosinophils % (0.8-7.0) % Basophils % (0.2-1.2) % Absolute Granulocytes (1.78-5.38) x10^3/uL Basophils # (0.01-0.08) x10^3/uL PT 11.0 (9.4-12.5) SECONDS INR 1.01 (0.8-3.0) APTT 27.6 (25.1-36.5) SECONDS Puncture Site pCO2 (35-45) mmHg pO2 (75-100) mmHg pO2/FiO2 Ratio % Base Excess (-2.0-2.0) O2 Saturation (94-100) g/dF ABG pH (7.35-7.45) ABG HCO3 (22-28) ABG O2 Sat (Measured) (95-100) % Wesley Test VBG pH (7.32-7.42) VBG pCO2 at Pat Temp (42-55) mm/Hg VBG pO2 at Pat Temp (25-40) mm/Hg VBG HCO3 (22-28) meq/L VBG O2 Sat (Lillian) (95-100) VBG Base Excess (-2.0-2.0) VBG Hemoglobin VBG Carboxyhemoglobin (0.0-6.9) % T HGB Hemoglobin Carboxyhemoglobin (0.0-6.9) % THgb Methemoglobin (1.4-1.5) % POC Potassium (3.5-5.1) Temperature C POC O2 Flow Rate % Sodium (135-145) mmol/L Potassium (3.5-5.1) mmol/L Chloride (98-107) mmol/L Carbon Dioxide (22-30) mmol/L Anion Gap BUN (9-20) mg/dL Creatinine (0.66-1.25) mg/dL Estimated GFR ML/MIN Glucose (74-106) mg/dL POC Glucometer (74 to 106) mg/dL Lactic Acid (0.4-2.0) Calcium (8.4-10.2) mg/dL Magnesium (1.6-2.3) mg/dL Total Bilirubin (0.2-1.3) mg/dL AST (17-59) U/L ALT (0-50) U/L Alkaline Phosphatase (38-126) U/L Troponin I (0.000-0.033) ng/mL NT-Pro-B Natriuret Pep (<300) pg/mL Serum Total Protein (6.3-8.2) g/dL Albumin (3.5-5.0) g/dL Lipase (23-300) U/L Urine Color Yellow (Yellow) Urine Appearance Clear (Clear) Urine pH 5.0 (4.6-8.0) Ur Specific [place] 1.020 (1.005-1.030) Urine Protein 30 (Negative) Urine Glucose (UA) >=1000 A (Negative) mg/dL Urine Ketones >=160 A (Negative) Urine Blood Small A (Negative) Urine Nitrite Negative (Negative) Urine Bilirubin Negative (Negative) Urine Urobilinogen 0.2 (0.2) mg/dL Ur Leukocyte Esterase Negative (Negative) U Hyaline Cast (Auto) 3-5 A (0-2) /LPF Urine Microscopic RBC 0-2 (0-5) /HPF Urine Microscopic WBC 0-2 (0-5) /HPF Ur Epithelial Cells None Seen (None Seen) /HPF Urine Bacteria None Seen (None Seen) /HPF Urine Culture Reflexed NO (NO) Ethyl Alcohol (0-10) mg/dL Influenza Type A Ag NEGATIVE (NEGATIVE) Influenza Type B Ag NEGATIVE (NEGATIVE) RSV (PCR) NEGATIVE (NEGATIVE) SARS-CoV-2 (PCR) NEGATIVE (NEGATIVE) Slides for Path Review 10/18/24 10/18/24 10/18/24 Range/Units 14:07 14:19 14:22 WBC (4.23-9.07) x10^3/uL RBC (4.63-6.08) x10^6/uL Hgb (13.7-17.5) g/dL Hct (40.1-51.0) % MCV (79.0-92.2) fL MCH (25.7-32.2) pg MCHC (32.3-36.5) g/dL RDW (11.6-14.4) % Plt Count (163-337) x10^3/uL MPV (9.4-12.4) fL Gran % (34.0-67.9) % Immature Gran % (Auto) (0.001-0.429) % Nucleat RBC Rel Count (0.00-0.2) % Eos # (Auto) (0.04-0.54) x10^3/uL Immature Gran # (Auto) (0.001-0.031) x10^3u/L Absolute Lymphs (auto) (1.32-3.57) x10^3/uL Absolute Monos (auto) (0.30-0.82) x10^3/uL Absolute Nucleated RBC (0.00-0.012) x10^3u/L Lymphocytes % (21.8-53.1) % Monocytes % (5.3-12.2) % Eosinophils % (0.8-7.0) % Basophils % (0.2-1.2) % Absolute Granulocytes (1.78-5.38) x10^3/uL Basophils # (0.01-0.08) x10^3/uL PT (9.4-12.5) SECONDS INR (0.8-3.0) APTT (25.1-36.5) SECONDS Puncture Site LEFT BRACHIAL pCO2 8 L* (35-45) mmHg pO2 163 H* (75-100) mmHg pO2/FiO2 Ratio % Base Excess -25.7 L (-2.0-2.0) O2 Saturation 96.2 (94-100) g/dF ABG pH 7.06 L* (7.35-7.45) ABG HCO3 2.3 L* (22-28) ABG O2 Sat (Measured) 100.0 (95-100) % Wesley Test Yes VBG pH (7.32-7.42) VBG pCO2 at Pat Temp (42-55) mm/Hg VBG pO2 at Pat Temp (25-40) mm/Hg VBG HCO3 (22-28) meq/L VBG O2 Sat (Lillian) (95-100) VBG Base Excess (-2.0-2.0) VBG Hemoglobin VBG Carboxyhemoglobin (0.0-6.9) % T HGB Hemoglobin 14.3 Carboxyhemoglobin 2.9 (0.0-6.9) % THgb Methemoglobin 0.9 L (1.4-1.5) % POC Potassium (3.5-5.1) Temperature 37.0 C POC O2 Flow Rate 21 % Sodium (135-145) mmol/L Potassium 5.2 H (3.5-5.1) mmol/L Chloride (98-107) mmol/L Carbon Dioxide (22-30) mmol/L Anion Gap BUN (9-20) mg/dL Creatinine (0.66-1.25) mg/dL Estimated GFR ML/MIN Glucose (74-106) mg/dL POC Glucometer 386 H (74 to 106) mg/dL Lactic Acid 2.2 H (0.4-2.0) Calcium (8.4-10.2) mg/dL Magnesium (1.6-2.3) mg/dL Total Bilirubin (0.2-1.3) mg/dL AST (17-59) U/L ALT (0-50) U/L Alkaline Phosphatase (38-126) U/L Troponin I (0.000-0.033) ng/mL NT-Pro-B Natriuret Pep (<300) pg/mL Serum Total Protein (6.3-8.2) g/dL Albumin (3.5-5.0) g/dL Lipase (23-300) U/L Urine Color (Yellow) Urine Appearance (Clear) Urine pH (4.6-8.0) Ur Specific [place] (1.005-1.030) Urine Protein (Negative) Urine Glucose (UA) (Negative) mg/dL Urine Ketones (Negative) Urine Blood (Negative) Urine Nitrite (Negative) Urine Bilirubin (Negative) Urine Urobilinogen (0.2) mg/dL Ur Leukocyte Esterase (Negative) U Hyaline Cast (Auto) (0-2) /LPF Urine Microscopic RBC (0-5) /HPF Urine Microscopic WBC (0-5) /HPF Ur Epithelial Cells (None Seen) /HPF Urine Bacteria (None Seen) /HPF Urine Culture Reflexed (NO) Ethyl Alcohol (0-10) mg/dL Influenza Type A Ag (NEGATIVE) Influenza Type B Ag (NEGATIVE) RSV (PCR) (NEGATIVE) SARS-CoV-2 (PCR) (NEGATIVE) Slides for Path Review 10/18/24 10/18/24 10/18/24 Range/Units 15:05 15:05 15:13 WBC (4.23-9.07) x10^3/uL RBC (4.63-6.08) x10^6/uL Hgb (13.7-17.5) g/dL Hct (40.1-51.0) % MCV (79.0-92.2) fL MCH (25.7-32.2) pg MCHC (32.3-36.5) g/dL RDW (11.6-14.4) % Plt Count (163-337) x10^3/uL MPV (9.4-12.4) fL Gran % (34.0-67.9) % Immature Gran % (Auto) (0.001-0.429) % Nucleat RBC Rel Count (0.00-0.2) % Eos # (Auto) (0.04-0.54) x10^3/uL Immature Gran # (Auto) (0.001-0.031) x10^3u/L Absolute Lymphs (auto) (1.32-3.57) x10^3/uL Absolute Monos (auto) (0.30-0.82) x10^3/uL Absolute Nucleated RBC (0.00-0.012) x10^3u/L Lymphocytes % (21.8-53.1) % Monocytes % (5.3-12.2) % Eosinophils % (0.8-7.0) % Basophils % (0.2-1.2) % Absolute Granulocytes (1.78-5.38) x10^3/uL Basophils # (0.01-0.08) x10^3/uL PT (9.4-12.5) SECONDS INR (0.8-3.0) APTT (25.1-36.5) SECONDS Puncture Site pCO2 (35-45) mmHg pO2 (75-100) mmHg pO2/FiO2 Ratio % Base Excess (-2.0-2.0) O2 Saturation (94-100) g/dF ABG pH (7.35-7.45) ABG HCO3 (22-28) ABG O2 Sat (Measured) (95-100) % Wesley Test VBG pH (7.32-7.42) VBG pCO2 at Pat Temp (42-55) mm/Hg VBG pO2 at Pat Temp (25-40) mm/Hg VBG HCO3 (22-28) meq/L VBG O2 Sat (Lillain) (95-100) VBG Base Excess (-2.0-2.0) VBG Hemoglobin VBG Carboxyhemoglobin (0.0-6.9) % T HGB Hemoglobin Carboxyhemoglobin (0.0-6.9) % THgb Methemoglobin (1.4-1.5) % POC Potassium (3.5-5.1) Temperature C POC O2 Flow Rate % Sodium 147 H (135-145) mmol/L Potassium 5.2 H (3.5-5.1) mmol/L Chloride 115 H (98-107) mmol/L Carbon Dioxide < 5 L* (22-30) mmol/L Anion Gap BUN 35 H (9-20) mg/dL Creatinine 1.49 H (0.66-1.25) mg/dL Estimated GFR 50.2 ML/MIN Glucose 398 H (74-106) mg/dL POC Glucometer 347 H (74 to 106) mg/dL Lactic Acid (0.4-2.0) Calcium 9.7 (8.4-10.2) mg/dL Magnesium (1.6-2.3) mg/dL Total Bilirubin (0.2-1.3) mg/dL AST (17-59) U/L ALT (0-50) U/L Alkaline Phosphatase (38-126) U/L Troponin I 0.021 (0.000-0.033) ng/mL NT-Pro-B Natriuret Pep (<300) pg/mL Serum Total Protein (6.3-8.2) g/dL Albumin (3.5-5.0) g/dL Lipase (23-300) U/L Urine Color (Yellow) Urine Appearance (Clear) Urine pH (4.6-8.0) Ur Specific [place] (1.005-1.030) Urine Protein (Negative) Urine Glucose (UA) (Negative) mg/dL Urine Ketones (Negative) Urine Blood (Negative) Urine Nitrite (Negative) Urine Bilirubin (Negative) Urine Urobilinogen (0.2) mg/dL Ur Leukocyte Esterase (Negative) U Hyaline Cast (Auto) (0-2) /LPF Urine Microscopic RBC (0-5) /HPF Urine Microscopic WBC (0-5) /HPF Ur Epithelial Cells (None Seen) /HPF Urine Bacteria (None Seen) /HPF Urine Culture Reflexed (NO) Ethyl Alcohol (0-10) mg/dL Influenza Type A Ag (NEGATIVE) Influenza Type B Ag (NEGATIVE) RSV (PCR) (NEGATIVE) SARS-CoV-2 (PCR) (NEGATIVE) Slides for Path Review 10/18/24 10/18/24 Range/Units 15:33 16:11 WBC (4.23-9.07) x10^3/uL RBC (4.63-6.08) x10^6/uL Hgb (13.7-17.5) g/dL Hct (40.1-51.0) % MCV (79.0-92.2) fL MCH (25.7-32.2) pg MCHC (32.3-36.5) g/dL RDW (11.6-14.4) % Plt Count (163-337) x10^3/uL MPV (9.4-12.4) fL Gran % (34.0-67.9) % Immature Gran % (Auto) (0.001-0.429) % Nucleat RBC Rel Count (0.00-0.2) % Eos # (Auto) (0.04-0.54) x10^3/uL Immature Gran # (Auto) (0.001-0.031) x10^3u/L Absolute Lymphs (auto) (1.32-3.57) x10^3/uL Absolute Monos (auto) (0.30-0.82) x10^3/uL Absolute Nucleated RBC (0.00-0.012) x10^3u/L Lymphocytes % (21.8-53.1) % Monocytes % (5.3-12.2) % Eosinophils % (0.8-7.0) % Basophils % (0.2-1.2) % Absolute Granulocytes (1.78-5.38) x10^3/uL Basophils # (0.01-0.08) x10^3/uL PT (9.4-12.5) SECONDS INR (0.8-3.0) APTT (25.1-36.5) SECONDS Puncture Site pCO2 (35-45) mmHg pO2 (75-100) mmHg pO2/FiO2 Ratio % Base Excess (-2.0-2.0) O2 Saturation (94-100) g/dF ABG pH (7.35-7.45) ABG HCO3 (22-28) ABG O2 Sat (Measured) (95-100) % Wesley Test VBG pH (7.32-7.42) VBG pCO2 at Pat Temp (42-55) mm/Hg VBG pO2 at Pat Temp (25-40) mm/Hg VBG HCO3 (22-28) meq/L VBG O2 Sat (Lillian) (95-100) VBG Base Excess (-2.0-2.0) VBG Hemoglobin VBG Carboxyhemoglobin (0.0-6.9) % T HGB Hemoglobin Carboxyhemoglobin (0.0-6.9) % THgb Methemoglobin (1.4-1.5) % POC Potassium (3.5-5.1) Temperature C POC O2 Flow Rate % Sodium (135-145) mmol/L Potassium (3.5-5.1) mmol/L Chloride (98-107) mmol/L Carbon Dioxide (22-30) mmol/L Anion Gap BUN (9-20) mg/dL Creatinine (0.66-1.25) mg/dL Estimated GFR ML/MIN Glucose (74-106) mg/dL POC Glucometer 326 H (74 to 106) mg/dL Lactic Acid 2.2 H (0.4-2.0) Calcium (8.4-10.2) mg/dL Magnesium (1.6-2.3) mg/dL Total Bilirubin (0.2-1.3) mg/dL AST (17-59) U/L ALT (0-50) U/L Alkaline Phosphatase (38-126) U/L Troponin I (0.000-0.033) ng/mL NT-Pro-B Natriuret Pep (<300) pg/mL Serum Total Protein (6.3-8.2) g/dL Albumin (3.5-5.0) g/dL Lipase (23-300) U/L Urine Color (Yellow) Urine Appearance (Clear) Urine pH (4.6-8.0) Ur Specific [place] (1.005-1.030) Urine Protein (Negative) Urine Glucose (UA) (Negative) mg/dL Urine Ketones (Negative) Urine Blood (Negative) Urine Nitrite (Negative) Urine Bilirubin (Negative) Urine Urobilinogen (0.2) mg/dL Ur Leukocyte Esterase (Negative) U Hyaline Cast (Auto) (0-2) /LPF Urine Microscopic RBC (0-5) /HPF Urine Microscopic WBC (0-5) /HPF Ur Epithelial Cells (None Seen) /HPF Urine Bacteria (None Seen) /HPF Urine Culture Reflexed (NO) Ethyl Alcohol (0-10) mg/dL Influenza Type A Ag (NEGATIVE) Influenza Type B Ag (NEGATIVE) RSV (PCR) (NEGATIVE) SARS-CoV-2 (PCR) (NEGATIVE) Slides for Path Review Accuchecks Date 10/18/24 Date 10/18/24 Time 16:12 Time 11:46 - Radiology Impressions Radiology Exams & Impressions: Radiology Procedures Category Date Time Status ABDOMEN AND PELVIS W/0 CONTRAS [CT] Stat Exams 10/18/24 11:51 Completed CHEST 1 VIEW (PORTABLE) Stat Exams 10/18/24 11:49 Completed HEAD WITHOUT CONTRAST [CT] Stat Exams 10/18/24 11:51 Completed Assessment/Plan (1) DKA (diabetic ketoacidoses) Current Visit: Yes Status: Acute Qualifiers: Diabetes mellitus type: other specified (including NGUYEN) Diabetes mellitus complication detail: without coma Qualified Code(s): E13.10 - Other specified diabetes mellitus with ketoacidosis without coma Assessment & Plan: -Supported by glucose >492 mg/dL, anion gap acidosis, low serum bicarbonate, profound acidemia (ABG pH 7.06, VBG pH 6.98), elevated ketones >160, glucosuria >1000, elevated lactic acid. -Complicated by electrolyte derangements including hyperkalemia (K+ up to 6.1 POC) and CHERIE. -Admit to ICU -Continue insulin drip per protocol -Given 50meq of sodium bicarb in ED -Change fluids to 1/2 NS due to hyperkalemia -transition to D5 once glucose <250 mg/dL - per protocol orders placed -BMP/ABG [id number] ABGs until acidosis resolves. -Consider bicarb if PH is less than/equal to 6.9 -Replace electrolytes as indicated; treat hyperkalemia if persistent >6 Code(s): E11.10 - TYPE 2 DIABETES MELLITUS WITH KETOACIDOSIS WITHOUT COMA (2) Sepsis Current Visit: No Status: Acute Qualifiers: Sepsis type: sepsis due to unspecified organism Sepsis acute organ dysfunction status: with acute organ dysfunction Severe sepsis acute organ dysfunction type: acute renal failure Acute renal failure type: unspecified Severe sepsis shock status: without septic shock Qualified Code(s): A41.9 - Sepsis, unspecified organism; R65.20 - Severe sepsis without septic shock; N17.9 - Acute kidney failure, unspecified Assessment & Plan: -Meet criteria with HR, RR, and WBC at 24.7, elevated lactic -unknown source of infection -May be reactive secondary to DKA -2L IVF bolus given -Monitor lactate trend (initially 3.5 - 2.2). -possible urinary source given distended bladder and enlarged prostate. No clear pulmonary or intra-abdominal source identified on imaging - zosyn given in ED - will continue -CT abdomen/pelvis showed a markedly distended urinary bladder raising concern for urinary outlet obstruction versus neurogenic bladder, with chronic findings of enlarged prostate, chronic diverticulosis, non-obstructive left renal calculi, cholelithiasis, fatty liver, and generalized arteriosclerotic disease. Chest X-ray revealed chronic cardiopulmonary changes without acute process. -Blood cultures pending (3) Bladder distention Current Visit: Yes Status: Acute Assessment & Plan: -noted on CT, place torres for accurate I&O and urinary retention Code(s): N32.89 - OTHER SPECIFIED DISORDERS OF BLADDER (4) Recurrent falls Current Visit: Yes Status: Acute Assessment & Plan: -Low back pain post-fall; no acute fracture noted on available imaging, though further spinal evaluation may be warranted. Code(s): R29.6 - REPEATED FALLS (5) Diabetes mellitus Current Visit: Yes Status: Acute Assessment & Plan: -see DKA above -check A1c Code(s): E11.9 - TYPE 2 DIABETES MELLITUS WITHOUT COMPLICATIONS (6) CHERIE (acute kidney injury) Current Visit: Yes Status: Acute Assessment & Plan: -Optimize volume status with IV fluids. -unknown baseline -Monitor renal function and urine output. -Avoid nephrotoxic medications. Code(s): N17.9 - ACUTE KIDNEY FAILURE, UNSPECIFIED (7) BPH (benign prostatic hyperplasia) Current Visit: Yes Status: Acute Assessment & Plan: -shown on CT- FC placed for urinary retention- trial void in 24-48 hours -may need urology OP eval pending results -flomax Code(s): N40.0 - BENIGN PROSTATIC HYPERPLASIA WITHOUT LOWER URINRY TRACT SYMP (8) HTN (hypertension) Current Visit: Yes Status: Acute Assessment & Plan: -stable - continue home meds Code(s): I10 - ESSENTIAL (PRIMARY) HYPERTENSION (9) GERD (gastroesophageal reflux disease) Current Visit: Yes Status: Acute Assessment & Plan: -Protonix Code(s): K21.9 - GASTRO-ESOPHAGEAL REFLUX DISEASE WITHOUT ESOPHAGITIS (10) Hyperkalemia Current Visit: No Status: Acute Assessment & Plan: -Tele -monitor and replenish per DKA protocol VTE: lovenox PPI: protonix Dispo: 2-3 days Code status: Critical care services were provided for this patient due to imminent risk of life-threatening deterioration secondary to severe diabetic ketoacidosis with profound metabolic acidosis (pH ~7.0, HCO2 <5), hyperkalemia, acute kidney injury, and altered metabolic status. The patient required continuous bedside assessment, aggressive IV fluid resuscitation, initiation and titration of insulin infusion, electrolyte management with high risk of rapid shifts, consideration of bicarbonate therapy, interpretation of serial arterial/venous blood gases, frequent review of laboratory and imaging results, and coordination of care with nursing and specialty services. Interventions were necessary to prevent cardiovascular collapse, arrhythmia, respiratory failure, and . Total critical care time 60 minutes, exclusive of separately billable procedures. Code(s): E87.5 - HYPERKALEMIA Telemedicine Encounter - Telemedicine Encounter Telemedicine Encounter: "The entirety of this encounter was performed via Telemedicine" This visit was performed using real-time audio and video connection between my location and thepatients locationwith the assistance of a surrogateat the patients location. Written or verbal consent was obtained from the patient/guardian to perform this visit usings[employer] technology. Any patient questions regarding the telemedicine interaction were answered.
[2024-10-18] MEDS ORDERED: DUONEB 0.5-3 MG/3 ml Neb IH PRN (17:11)
[2024-10-18] MEDS ORDERED: Zofran 4 MG/2 ML VIAL IV PRN (17:11)
[2024-10-18 17:27] LABS: A-aADO2 43; ABG HEMOGLOBIN 14.0; ABG POTASSIUM 4.8 (3.5-5.1); ARTERIAL BLD GAS O2 SATURATION 99.2 % (95-100); ARTERIAL BLOOD GAS BASE EXCESS -24.2 (-2.0-2.0); ARTERIAL BLOOD GAS FIO2 28 %; ARTERIAL BLOOD GAS PO2 143 mmHg (75-100); ARTERIAL BLOOD GAS TEMPERATURE 37.0 C; HCO3- 3.3 (22-28); HGB O2 SAT 97.7 g/dF (94-100); Methhemoglobin 1.0 % (1.4-1.5); paO2 pAO1 0.77
[2024-10-18 17:29] LABS: ABG SITE LEFT BRACHIAL; ARTERIAL BLOOD GAS PCO2 11 mmHg (35-45)
[2024-10-18] MEDS ORDERED: HUMALOG SQ PRN (17:30)
[2024-10-18 19:02] LABS: Calcium 9.5 mg/dL (8.4-10.2); Creatinine 1 1.47 mg/dL (0.66-1.25); EST GLOMERULAR FILTRATION RATE 51.0 ML/MIN; Glucose 332 mg/dL (74-106); Potassium 4.8 mmol/L (3.5-5.1)
[2024-10-18 19:13] LABS: Carbon Dioxide < 5 mmol/L (22-30)
[2024-10-18 20:51] LABS: A-aADO2 -10; ABG HEMOGLOBIN 13.6; ABG POTASSIUM 4.1 (3.5-5.1); ARTERIAL BLD GAS O2 SATURATION 100.0 % (95-100); ARTERIAL BLOOD GAS BASE EXCESS -20.1 (-2.0-2.0); ARTERIAL BLOOD GAS FIO2 21 %; ARTERIAL BLOOD GAS PO2 145 mmHg (75-100); ARTERIAL BLOOD GAS TEMPERATURE 37.0 C; HCO3- 4.9 (22-28); HGB O2 SAT 95.0 g/dF (94-100); Methhemoglobin 1.0 % (1.4-1.5); paO2 pAO1 1.07
[2024-10-18 20:52] LABS: ARTERIAL BLOOD GAS PCO2 12 mmHg (35-45)
[2024-10-18 20:53] LABS: ABG SITE LEFT BRACHIAL
[2024-10-18 21:35] LABS: Calcium 9.3 mg/dL (8.4-10.2); Creatinine 1 1.39 mg/dL (0.66-1.25); EST GLOMERULAR FILTRATION RATE 54.5 ML/MIN; Glucose 265 mg/dL (74-106); Potassium 4.1 mmol/L (3.5-5.1)
[2024-10-18 21:38] LABS: Carbon Dioxide < 5 mmol/L (22-30)
[2024-10-19 01:12] LABS: A-aADO2 27; ABG HEMOGLOBIN 12.6; ABG POTASSIUM 3.5 (3.5-5.1); ARTERIAL BLD GAS O2 SATURATION 99.1 % (95-100); ARTERIAL BLOOD GAS BASE EXCESS -13.3 (-2.0-2.0); ARTERIAL BLOOD GAS FIO2 21 %; ARTERIAL BLOOD GAS PCO2 24 mmHg (35-45); ARTERIAL BLOOD GAS PO2 93 mmHg (75-100); ARTERIAL BLOOD GAS TEMPERATURE 37.0 C; HCO3- 11.5 (22-28); HGB O2 SAT 97.2 g/dF (94-100); Methhemoglobin 1.0 % (1.4-1.5); paO2 pAO1 0.78
[2024-10-19 01:13] LABS: ABG SITE LEFT BRACHIAL
[2024-10-19 01:36] LABS: Calcium 9.2 mg/dL (8.4-10.2); Creatinine 1 1.12 mg/dL (0.66-1.25); EST GLOMERULAR FILTRATION RATE 70.7 ML/MIN; Glucose 214.0 mg/dL (74-106); Potassium 3.6 mmol/L (3.5-5.1)
[2024-10-19 01:39] LABS: Carbon Dioxide 8.0 mmol/L (22-30)
[2024-10-19] MEDS ORDERED: D5W/0.45NS W/ 20mEq KCl 1000 ML 1,000 ML IV ONE (02:34)
[2024-10-19 04:44] LABS: A-aADO2 -7; ABG HEMOGLOBIN 12.6; ABG POTASSIUM 3.1 (3.5-5.1); ARTERIAL BLD GAS O2 SATURATION 100.0 % (95-100); ARTERIAL BLOOD GAS BASE EXCESS -9.6 (-2.0-2.0); ARTERIAL BLOOD GAS FIO2 21 %; ARTERIAL BLOOD GAS PCO2 26 mmHg (35-45); ARTERIAL BLOOD GAS PO2 124 mmHg (75-100); ARTERIAL BLOOD GAS TEMPERATURE 37.0 C; HCO3- 14.4 (22-28); HGB O2 SAT 95.9 g/dF (94-100); Methhemoglobin 1.0 % (1.4-1.5); paO2 pAO1 1.06
[2024-10-19 04:45] LABS: ABG SITE LEFT BRACHIAL
[2024-10-19 04:50] LABS: BASOPHIL % 0.2 % (0.2-1.2); Basophil (Absolute #) 0.04 x10^3/uL (0.01-0.08); Eosinophil (Absolute #) 0.03 x10^3/uL (0.04-0.54); Hematocrit 37.4 % (40.1-51.0); Hemoglobin 11.9 g/dL (13.7-17.5); IMMATURE GRAN # 0.21 x10^3u/L (0.001-0.031); IMMATURE GRAN % 1.2 % (0.001-0.429); Lymphocyte (Absolute #) 1.23 x10^3/uL (1.32-3.57); Mean Corpuscular Hemoglobin 26.0 pg (25.7-32.2); Mean Corpuscular Hgb Concent. 31.8 g/dL (32.3-36.5); Monocyte (Absolute #) 1.55 x10^3/uL (0.30-0.82); NUCLEATED RBC # 0.00 x10^3u/L (0.00-0.012); NUCLEATED RBC % 0.0 % (0.00-0.2); Platelet Count 307 x10^3/uL (163-337); Red Blood Count 4.57 x10^6/uL (4.63-6.08); White Blood Count 16.8 x10^3/uL (4.23-9.07)
[2024-10-19 05:05] LABS: Calcium 9.1 mg/dL (8.4-10.2); Creatinine 1 1.06 mg/dL (0.66-1.25); EST GLOMERULAR FILTRATION RATE 75.5 ML/MIN; Glucose 137.0 mg/dL (74-106); Potassium 3.1 mmol/L (3.5-5.1); SGOT/AST 36.0 U/L (17-59); SGPT/ALT 27.0 U/L (0-50); Total Protein 5.7 g/dL (6.3-8.2)
--- NOTE | 2024-10-19 05:07 | PCM.NOTE ---
Date and Time: 10/19/24 0505 Subjective Assessment: is a 69 year old male with a pmhx of HLD, HTN, GERD, and DMII who presented to ED 10/18/24 with complaints of weakness, nausea, and vomiting since yesterday. He reports falling out of bed last Tuesday and has recently been having an unsteady gait which prompted him to seek medical attention at [facility] where he was recently admitted and discharged yesterday. He is a poor historian regarding his medical regimen, stating he was recently hospitalized at a [facility] facility for a stroke workup but is unclear about the outcome. He reports that he was instructed not to take his insulin and has not taken any since last Tuesday. We will obtain these records. A home health aide who evaluated him earlier today found him clinically unfit to remain alone at home and noted severe hyperglycemia, prompting EMS activation. On arrival, the patient also endorsed low back pain following his recent fall. Upon arrival to ED patient was tachycardic though otherwise hemodynamically stable. Lab findings remarkable for WBC , serum sodium 147 , potassium 5.2 , chloride 115 , BUN 35, and creatinine 1.49. Glucose was critically high at 492 on admission, later trending down to 347 mg/dL after intervention. Serum bicarbonate was severely depressed (<5 mmol/L) with an anion gap metabolic acidosis. Arterial blood gases showed severe metabolic acidosis with partial respiratory compensation. Lactic acid was elevated at 3.5 on admission, later improving to 2.2. Urine studies were notable for glucosuria >1000 and ketones >160, confirming ketoacidosis. Magnesium was elevated at 2.9. Respiratory viral panel was negative, reducing concern for viral trigger. Imaging revealed multiple acute and chronic findings. CT head demonstrated non-acute senile changes without acute intracranial process, reducing immediate concern for traumatic bleed in the context of falls and possible anticoagulation. CT abdomen/pelvis showed a markedly distended urinary bladder raising concern for urinary outlet obstruction versus neurogenic bladder, with chronic findings of enlarged prostate, chronic diverticulosis, non-obstructive left renal calculi, cholelithiasis, fatty liver, and generalized arteriosclerotic disease. Chest X- ray revealed chronic cardiopulmonary changes without acute process. Patient started on insulin drip, given sodium bicarb 50meq, IVF bolus of 2L, Zosyn, proventil, and calcium chloride. Admitted for DKA. 10/19/24: Met with patient bedside. Patient reports feeling significantly better compared to admission. Denies ongoing nausea, vomiting, abdominal pain, or shortness of breath. States energy has improved and appetite is returning. No chest pain, palpitations, or dizziness. Patient aware insulin drip was previously stopped due to hypokalemia, which has since resolved. Expresses relief that blood sugars are under better control. Denies fever,cough, abdominal pain, HENDERSON, dizziness, N/V/D. - Review of Systems Constitutional: Weakness Eyes: No Symptoms Ears, Nose, & Throat: No Symptoms Respiratory: Cough, Short Of Breath Cardiac: Chest Pain Abdominal/Gastrointestinal: Nausea Genitourinary Symptoms: No Symptoms Musculoskeletal: No Symptoms Skin: No Symptoms Neurological: No Symptoms Psychological: No Symptoms Endocrine: No Symptoms Hematologic/Lymphatic: No Symptoms Immunological/Allergic: No Symptoms Objective Exam General Appearance: no apparent distress Neurologic Exam: alert, oriented x 3, cooperative Skin Exam: normal color Eye Exam: PERRL Ears, Nose, Throat Exam: normal ENT inspection Neck Exam: normal inspection Respiratory Exam: normal breath sounds, lungs clear Cardiovascular Exam: regular rate/rhythm, normal heart sounds Gastrointestinal/Abdomen Exam: soft, normal bowel sounds Extremity Exam: normal inspection Back Exam: normal inspection Male Genitalia Exam: prostate enlargement Rectal Exam: deferred Objective Data Vital Signs: Vital Signs - 24 hr Temp Pulse Resp BP BP BP Pulse Ox 10/19/24 04:00 98.0 F 80 20 112/53 99 10/19/24 03:00 83 14 124/48 98 10/19/24 02:00 84 20 115/50 100 10/19/24 01:00 93 H 22 120/51 98 10/19/24 00:01 93 H 10/19/24 00:00 98.0 F 85 21 104/42 99 10/18/24 23:00 86 21 118/59 97 10/18/24 22:00 84 18 119/52 100 10/18/24 21:00 87 15 115/59 99 10/18/24 20:01 98.9 F 96 H 21 113/48 99 10/18/24 20:00 87 10/18/24 19:03 96 H 23 133/55 100 10/18/24 19:00 93 H 18 132/58 98 10/18/24 18:30 97.8 F 94 H 18 119/60 99 10/18/24 17:29 97 H 19 100 10/18/24 17:26 97.3 F 98 H 22 125/75 100 10/18/24 16:16 120/53 10/18/24 16:03 98 10/18/24 16:00 99 H 21 136/65 100 10/18/24 15:45 103 H 21 128/70 100 10/18/24 15:30 139 H 23 131/64 100 10/18/24 15:15 140 H 23 142/71 100 10/18/24 15:07 118 H 21 112/51 100 10/18/24 14:46 107 H 21 137/57 100 10/18/24 14:37 135 H 23 112/60 100 10/18/24 14:36 149 H 23 100 10/18/24 14:30 134 H 22 92/63 99 10/18/24 14:15 98 H 22 124/71 100 10/18/24 14:00 102 H 22 123/69 100 10/18/24 13:47 97 H 23 115/44 84 L 10/18/24 13:46 129 H 23 97 10/18/24 13:43 129 H 24 10/18/24 13:20 104 H 23 100 10/18/24 13:11 104 H 24 98 10/18/24 13:10 105 H 24 10/18/24 13:03 103 H 22 10/18/24 12:30 104 H 22 131/64 10/18/24 12:20 103 H 24 136/54 10/18/24 12:00 102 H 32 H 147/62 96 10/18/24 11:57 96.8 F 100 H 26 H 150/60 98 10/18/24 11:49 96 H 25 H 150/60 96 10/18/24 11:48 100 Pain Assessment - Last Documented Pain Intensity 0 Intake and Output: Intake & Output 10/16/24 10/17/24 10/18/24 10/19/24 11:59 11:59 11:59 11:59 Intake Total 3250 Output Total 3350 Balance -100 Weight 70.4 kg 77.3 kg Lab Results: Lab Results-Last 24 Hours 10/18/24 10/18/24 10/18/24 Range/Units 11:49 11:49 12:10 WBC 24.7 H (4.23-9.07) x10^3/uL RBC 5.46 (4.63-6.08) x10^6/uL Hgb 14.1 (13.7-17.5) g/dL Hct 49.3 (40.1-51.0) % MCV 90.3 (79.0-92.2) fL MCH 25.8 (25.7-32.2) pg MCHC 28.6 L (32.3-36.5) g/dL RDW 17.2 H (11.6-14.4) % Plt Count 384 H (163-337) x10^3/uL MPV 10.8 (9.4-12.4) fL Gran % 84.2 H (34.0-67.9) % Immature Gran % (Auto) 4.0 H (0.001-0.429) % Nucleat RBC Rel Count 0.0 (0.00-0.2) % Eos # (Auto) 0.02 L (0.04-0.54) x10^3/uL Immature Gran # (Auto) 0.98 H (0.001-0.031) x10^3u/L Absolute Lymphs (auto) 1.07 L (1.32-3.57) x10^3/uL Absolute Monos (auto) 1.70 H (0.30-0.82) x10^3/uL Absolute Nucleated RBC 0.00 (0.00-0.012) x10^3u/L Lymphocytes % 4.3 L (21.8-53.1) % Monocytes % 6.9 (5.3-12.2) % Eosinophils % 0.1 L (0.8-7.0) % Basophils % 0.5 (0.2-1.2) % Absolute Granulocytes 20.79 H (1.78-5.38) x10^3/uL Basophils # 0.13 H (0.01-0.08) x10^3/uL PT (9.4-12.5) SECONDS INR (0.8-3.0) APTT (25.1-36.5) SECONDS Puncture Site pCO2 (35-45) mmHg pO2 (75-100) mmHg pO2/FiO2 Ratio 21.0 % Base Excess (-2.0-2.0) O2 Saturation (94-100) g/dF ABG pH (7.35-7.45) ABG HCO3 (22-28) ABG O2 Sat (Measured) (95-100) % Wesley Test VBG pH 6.98 L* (7.32-7.42) VBG pCO2 at Pat Temp 14 L* (42-55) mm/Hg VBG pO2 at Pat Temp 55 H (25-40) mm/Hg VBG HCO3 3.3 L* (22-28) meq/L VBG O2 Sat (Lillian) 82.5 L (95-100) VBG Base Excess -26.6 L (-2.0-2.0) VBG Hemoglobin 14.2 VBG Carboxyhemoglobin 2.4 (0.0-6.9) % T HGB A-a Gradient a/A Ratio Hemoglobin Carboxyhemoglobin (0.0-6.9) % THgb Methemoglobin (1.4-1.5) % POC Potassium 6.1 H* (3.5-5.1) Temperature C POC O2 Flow Rate % Sodium (135-145) mmol/L Potassium (3.5-5.1) mmol/L Chloride (98-107) mmol/L Carbon Dioxide (22-30) mmol/L Anion Gap BUN (9-20) mg/dL Creatinine (0.66-1.25) mg/dL Estimated GFR ML/MIN Glucose (74-106) mg/dL POC Glucometer (74 to 106) mg/dL Hemoglobin A1c (4.5-6.0) % Lactic Acid 3.5 H (0.4-2.0) Calcium (8.4-10.2) mg/dL Phosphorus (2.5-4.5) mg/dL Magnesium (1.6-2.3) mg/dL Total Bilirubin (0.2-1.3) mg/dL AST (17-59) U/L ALT (0-50) U/L Alkaline Phosphatase (38-126) U/L Troponin I (0.000-0.033) ng/mL NT-Pro-B Natriuret Pep (<300) pg/mL Serum Total Protein (6.3-8.2) g/dL Albumin (3.5-5.0) g/dL Lipase (23-300) U/L Urine Color (Yellow) Urine Appearance (Clear) Urine pH (4.6-8.0) Ur Specific [place] (1.005-1.030) Urine Protein (Negative) Urine Glucose (UA) (Negative) mg/dL Urine Ketones (Negative) Urine Blood (Negative) Urine Nitrite (Negative) Urine Bilirubin (Negative) Urine Urobilinogen (0.2) mg/dL Ur Leukocyte Esterase (Negative) U Hyaline Cast (Auto) (0-2) /LPF Urine Microscopic RBC (0-5) /HPF Urine Microscopic WBC (0-5) /HPF Ur Epithelial Cells (None Seen) /HPF Urine Bacteria (None Seen) /HPF Urine Culture Reflexed (NO) Ethyl Alcohol (0-10) mg/dL Influenza Type A Ag (NEGATIVE) Influenza Type B Ag (NEGATIVE) RSV (PCR) (NEGATIVE) SARS-CoV-2 (PCR) (NEGATIVE) Slides for Path Review YES 10/18/24 10/18/24 10/18/24 Range/Units 12:10 12:10 12:10 WBC (4.23-9.07) x10^3/uL RBC (4.63-6.08) x10^6/uL Hgb (13.7-17.5) g/dL Hct (40.1-51.0) % MCV (79.0-92.2) fL MCH (25.7-32.2) pg MCHC (32.3-36.5) g/dL RDW (11.6-14.4) % Plt Count (163-337) x10^3/uL MPV (9.4-12.4) fL Gran % (34.0-67.9) % Immature Gran % (Auto) (0.001-0.429) % Nucleat RBC Rel Count (0.00-0.2) % Eos # (Auto) (0.04-0.54) x10^3/uL Immature Gran # (Auto) (0.001-0.031) x10^3u/L Absolute Lymphs (auto) (1.32-3.57) x10^3/uL Absolute Monos (auto) (0.30-0.82) x10^3/uL Absolute Nucleated RBC (0.00-0.012) x10^3u/L Lymphocytes % (21.8-53.1) % Monocytes % (5.3-12.2) % Eosinophils % (0.8-7.0) % Basophils % (0.2-1.2) % Absolute Granulocytes (1.78-5.38) x10^3/uL Basophils # (0.01-0.08) x10^3/uL PT (9.4-12.5) SECONDS INR (0.8-3.0) APTT (25.1-36.5) SECONDS Puncture Site pCO2 (35-45) mmHg pO2 (75-100) mmHg pO2/FiO2 Ratio % Base Excess (-2.0-2.0) O2 Saturation (94-100) g/dF ABG pH (7.35-7.45) ABG HCO3 (22-28) ABG O2 Sat (Measured) (95-100) % Wesley Test VBG pH (7.32-7.42) VBG pCO2 at Pat Temp (42-55) mm/Hg VBG pO2 at Pat Temp (25-40) mm/Hg VBG HCO3 (22-28) meq/L VBG O2 Sat (Lillian) (95-100) VBG Base Excess (-2.0-2.0) VBG Hemoglobin VBG Carboxyhemoglobin (0.0-6.9) % T HGB A-a Gradient a/A Ratio Hemoglobin Carboxyhemoglobin (0.0-6.9) % THgb Methemoglobin (1.4-1.5) % POC Potassium (3.5-5.1) Temperature C POC O2 Flow Rate % Sodium 142 (135-145) mmol/L Potassium 6.1 H* (3.5-5.1) mmol/L Chloride 105 (98-107) mmol/L Carbon Dioxide < 5 L* (22-30) mmol/L Anion Gap Not Reportable BUN 37 H (9-20) mg/dL Creatinine 1.63 H (0.66-1.25) mg/dL Estimated GFR 45.1 ML/MIN Glucose 492 H (74-106) mg/dL POC Glucometer (74 to 106) mg/dL Hemoglobin A1c 5.36 (4.5-6.0) % Lactic Acid (0.4-2.0) Calcium 9.5 (8.4-10.2) mg/dL Phosphorus (2.5-4.5) mg/dL Magnesium 2.9 H (1.6-2.3) mg/dL Total Bilirubin 0.70 (0.2-1.3) mg/dL AST 39 (17-59) U/L ALT 38 (0-50) U/L Alkaline Phosphatase 103 (38-126) U/L Troponin I 0.015 (0.000-0.033) ng/mL NT-Pro-B Natriuret Pep (<300) pg/mL Serum Total Protein 6.9 (6.3-8.2) g/dL Albumin 4.3 (3.5-5.0) g/dL Lipase 20 L (23-300) U/L Urine Color (Yellow) Urine Appearance (Clear) Urine pH (4.6-8.0) Ur Specific [place] (1.005-1.030) Urine Protein (Negative) Urine Glucose (UA) (Negative) mg/dL Urine Ketones (Negative) Urine Blood (Negative) Urine Nitrite (Negative) Urine Bilirubin (Negative) Urine Urobilinogen (0.2) mg/dL Ur Leukocyte Esterase (Negative) U Hyaline Cast (Auto) (0-2) /LPF Urine Microscopic RBC (0-5) /HPF Urine Microscopic WBC (0-5) /HPF Ur Epithelial Cells (None Seen) /HPF Urine Bacteria (None Seen) /HPF Urine Culture Reflexed (NO) Ethyl Alcohol < 10 (0-10) mg/dL Influenza Type A Ag (NEGATIVE) Influenza Type B Ag (NEGATIVE) RSV (PCR) (NEGATIVE) SARS-CoV-2 (PCR) (NEGATIVE) Slides for Path Review 10/18/24 10/18/24 10/18/24 Range/Units 12:20 12:34 12:41 WBC (4.23-9.07) x10^3/uL RBC (4.63-6.08) x10^6/uL Hgb (13.7-17.5) g/dL Hct (40.1-51.0) % MCV (79.0-92.2) fL MCH (25.7-32.2) pg MCHC (32.3-36.5) g/dL RDW (11.6-14.4) % Plt Count (163-337) x10^3/uL MPV (9.4-12.4) fL Gran % (34.0-67.9) % Immature Gran % (Auto) (0.001-0.429) % Nucleat RBC Rel Count (0.00-0.2) % Eos # (Auto) (0.04-0.54) x10^3/uL Immature Gran # (Auto) (0.001-0.031) x10^3u/L Absolute Lymphs (auto) (1.32-3.57) x10^3/uL Absolute Monos (auto) (0.30-0.82) x10^3/uL Absolute Nucleated RBC (0.00-0.012) x10^3u/L Lymphocytes % (21.8-53.1) % Monocytes % (5.3-12.2) % Eosinophils % (0.8-7.0) % Basophils % (0.2-1.2) % Absolute Granulocytes (1.78-5.38) x10^3/uL Basophils # (0.01-0.08) x10^3/uL PT 11.0 (9.4-12.5) SECONDS INR 1.01 (0.8-3.0) APTT 27.6 (25.1-36.5) SECONDS Puncture Site pCO2 (35-45) mmHg pO2 (75-100) mmHg pO2/FiO2 Ratio % Base Excess (-2.0-2.0) O2 Saturation (94-100) g/dF ABG pH (7.35-7.45) ABG HCO3 (22-28) ABG O2 Sat (Measured) (95-100) % Wesley Test VBG pH (7.32-7.42) VBG pCO2 at Pat Temp (42-55) mm/Hg VBG pO2 at Pat Temp (25-40) mm/Hg VBG HCO3 (22-28) meq/L VBG O2 Sat (Lillian) (95-100) VBG Base Excess (-2.0-2.0) VBG Hemoglobin VBG Carboxyhemoglobin (0.0-6.9) % T HGB A-a Gradient a/A Ratio Hemoglobin Carboxyhemoglobin (0.0-6.9) % THgb Methemoglobin (1.4-1.5) % POC Potassium (3.5-5.1) Temperature C POC O2 Flow Rate % Sodium (135-145) mmol/L Potassium (3.5-5.1) mmol/L Chloride (98-107) mmol/L Carbon Dioxide (22-30) mmol/L Anion Gap BUN (9-20) mg/dL Creatinine (0.66-1.25) mg/dL Estimated GFR ML/MIN Glucose (74-106) mg/dL POC Glucometer (74 to 106) mg/dL Hemoglobin A1c (4.5-6.0) % Lactic Acid (0.4-2.0) Calcium (8.4-10.2) mg/dL Phosphorus (2.5-4.5) mg/dL Magnesium (1.6-2.3) mg/dL Total Bilirubin (0.2-1.3) mg/dL AST (17-59) U/L ALT (0-50) U/L Alkaline Phosphatase (38-126) U/L Troponin I (0.000-0.033) ng/mL NT-Pro-B Natriuret Pep 291 (<300) pg/mL Serum Total Protein (6.3-8.2) g/dL Albumin (3.5-5.0) g/dL Lipase (23-300) U/L Urine Color Yellow (Yellow) Urine Appearance Clear (Clear) Urine pH 5.0 (4.6-8.0) Ur Specific [place] 1.020 (1.005-1.030) Urine Protein 30 (Negative) Urine Glucose (UA) >=1000 A (Negative) mg/dL Urine Ketones >=160 A (Negative) Urine Blood Small A (Negative) Urine Nitrite Negative (Negative) Urine Bilirubin Negative (Negative) Urine Urobilinogen 0.2 (0.2) mg/dL Ur Leukocyte Esterase Negative (Negative) U Hyaline Cast (Auto) 3-5 A (0-2) /LPF Urine Microscopic RBC 0-2 (0-5) /HPF Urine Microscopic WBC 0-2 (0-5) /HPF Ur Epithelial Cells None Seen (None Seen) /HPF Urine Bacteria None Seen (None Seen) /HPF Urine Culture Reflexed NO (NO) Ethyl Alcohol (0-10) mg/dL Influenza Type A Ag (NEGATIVE) Influenza Type B Ag (NEGATIVE) RSV (PCR) (NEGATIVE) SARS-CoV-2 (PCR) (NEGATIVE) Slides for Path Review 10/18/24 10/18/24 10/18/24 Range/Units 13:24 14:07 14:19 WBC (4.23-9.07) x10^3/uL RBC (4.63-6.08) x10^6/uL Hgb (13.7-17.5) g/dL Hct (40.1-51.0) % MCV (79.0-92.2) fL MCH (25.7-32.2) pg MCHC (32.3-36.5) g/dL RDW (11.6-14.4) % Plt Count (163-337) x10^3/uL MPV (9.4-12.4) fL Gran % (34.0-67.9) % Immature Gran % (Auto) (0.001-0.429) % Nucleat RBC Rel Count (0.00-0.2) % Eos # (Auto) (0.04-0.54) x10^3/uL Immature Gran # (Auto) (0.001-0.031) x10^3u/L Absolute Lymphs (auto) (1.32-3.57) x10^3/uL Absolute Monos (auto) (0.30-0.82) x10^3/uL Absolute Nucleated RBC (0.00-0.012) x10^3u/L Lymphocytes % (21.8-53.1) % Monocytes % (5.3-12.2) % Eosinophils % (0.8-7.0) % Basophils % (0.2-1.2) % Absolute Granulocytes (1.78-5.38) x10^3/uL Basophils # (0.01-0.08) x10^3/uL PT (9.4-12.5) SECONDS INR (0.8-3.0) APTT (25.1-36.5) SECONDS Puncture Site pCO2 (35-45) mmHg pO2 (75-100) mmHg pO2/FiO2 Ratio % Base Excess (-2.0-2.0) O2 Saturation (94-100) g/dF ABG pH (7.35-7.45) ABG HCO3 (22-28) ABG O2 Sat (Measured) (95-100) % Wesley Test VBG pH (7.32-7.42) VBG pCO2 at Pat Temp (42-55) mm/Hg VBG pO2 at Pat Temp (25-40) mm/Hg VBG HCO3 (22-28) meq/L VBG O2 Sat (Lillian) (95-100) VBG Base Excess (-2.0-2.0) VBG Hemoglobin VBG Carboxyhemoglobin (0.0-6.9) % T HGB A-a Gradient a/A Ratio Hemoglobin Carboxyhemoglobin (0.0-6.9) % THgb Methemoglobin (1.4-1.5) % POC Potassium (3.5-5.1) Temperature C POC O2 Flow Rate % Sodium (135-145) mmol/L Potassium (3.5-5.1) mmol/L Chloride (98-107) mmol/L Carbon Dioxide (22-30) mmol/L Anion Gap BUN (9-20) mg/dL Creatinine (0.66-1.25) mg/dL Estimated GFR ML/MIN Glucose (74-106) mg/dL POC Glucometer 386 H (74 to 106) mg/dL Hemoglobin A1c (4.5-6.0) % Lactic Acid 2.2 H (0.4-2.0) Calcium (8.4-10.2) mg/dL Phosphorus (2.5-4.5) mg/dL Magnesium (1.6-2.3) mg/dL Total Bilirubin (0.2-1.3) mg/dL AST (17-59) U/L ALT (0-50) U/L Alkaline Phosphatase (38-126) U/L Troponin I (0.000-0.033) ng/mL NT-Pro-B Natriuret Pep (<300) pg/mL Serum Total Protein (6.3-8.2) g/dL Albumin (3.5-5.0) g/dL Lipase (23-300) U/L Urine Color (Yellow) Urine Appearance (Clear) Urine pH (4.6-8.0) Ur Specific [place] (1.005-1.030) Urine Protein (Negative) Urine Glucose (UA) (Negative) mg/dL Urine Ketones (Negative) Urine Blood (Negative) Urine Nitrite (Negative) Urine Bilirubin (Negative) Urine Urobilinogen (0.2) mg/dL Ur Leukocyte Esterase (Negative) U Hyaline Cast (Auto) (0-2) /LPF Urine Microscopic RBC (0-5) /HPF Urine Microscopic WBC (0-5) /HPF Ur Epithelial Cells (None Seen) /HPF Urine Bacteria (None Seen) /HPF Urine Culture Reflexed (NO) Ethyl Alcohol (0-10) mg/dL Influenza Type A Ag NEGATIVE (NEGATIVE) Influenza Type B Ag NEGATIVE (NEGATIVE) RSV (PCR) NEGATIVE (NEGATIVE) SARS-CoV-2 (PCR) NEGATIVE (NEGATIVE) Slides for Path Review 10/18/24 10/18/24 10/18/24 Range/Units 14:22 15:05 15:05 WBC (4.23-9.07) x10^3/uL RBC (4.63-6.08) x10^6/uL Hgb (13.7-17.5) g/dL Hct (40.1-51.0) % MCV (79.0-92.2) fL MCH (25.7-32.2) pg MCHC (32.3-36.5) g/dL RDW (11.6-14.4) % Plt Count (163-337) x10^3/uL MPV (9.4-12.4) fL Gran % (34.0-67.9) % Immature Gran % (Auto) (0.001-0.429) % Nucleat RBC Rel Count (0.00-0.2) % Eos # (Auto) (0.04-0.54) x10^3/uL Immature Gran # (Auto) (0.001-0.031) x10^3u/L Absolute Lymphs (auto) (1.32-3.57) x10^3/uL Absolute Monos (auto) (0.30-0.82) x10^3/uL Absolute Nucleated RBC (0.00-0.012) x10^3u/L Lymphocytes % (21.8-53.1) % Monocytes % (5.3-12.2) % Eosinophils % (0.8-7.0) % Basophils % (0.2-1.2) % Absolute Granulocytes (1.78-5.38) x10^3/uL Basophils # (0.01-0.08) x10^3/uL PT (9.4-12.5) SECONDS INR (0.8-3.0) APTT (25.1-36.5) SECONDS Puncture Site LEFT BRACHIAL pCO2 8 L* (35-45) mmHg pO2 163 H* (75-100) mmHg pO2/FiO2 Ratio % Base Excess -25.7 L (-2.0-2.0) O2 Saturation 96.2 (94-100) g/dF ABG pH 7.06 L* (7.35-7.45) ABG HCO3 2.3 L* (22-28) ABG O2 Sat (Measured) 100.0 (95-100) % Wesley Test Yes VBG pH (7.32-7.42) VBG pCO2 at Pat Temp (42-55) mm/Hg VBG pO2 at Pat Temp (25-40) mm/Hg VBG HCO3 (22-28) meq/L VBG O2 Sat (Lillian) (95-100) VBG Base Excess (-2.0-2.0) VBG Hemoglobin VBG Carboxyhemoglobin (0.0-6.9) % T HGB A-a Gradient a/A Ratio Hemoglobin 14.3 Carboxyhemoglobin 2.9 (0.0-6.9) % THgb Methemoglobin 0.9 L (1.4-1.5) % POC Potassium (3.5-5.1) Temperature 37.0 C POC O2 Flow Rate 21 % Sodium 147 H (135-145) mmol/L Potassium 5.2 H 5.2 H (3.5-5.1) mmol/L Chloride 115 H (98-107) mmol/L Carbon Dioxide < 5 L* (22-30) mmol/L Anion Gap BUN 35 H (9-20) mg/dL Creatinine 1.49 H (0.66-1.25) mg/dL Estimated GFR 50.2 ML/MIN Glucose 398 H (74-106) mg/dL POC Glucometer (74 to 106) mg/dL Hemoglobin A1c (4.5-6.0) % Lactic Acid (0.4-2.0) Calcium 9.7 (8.4-10.2) mg/dL Phosphorus (2.5-4.5) mg/dL Magnesium (1.6-2.3) mg/dL Total Bilirubin (0.2-1.3) mg/dL AST (17-59) U/L ALT (0-50) U/L Alkaline Phosphatase (38-126) U/L Troponin I 0.021 (0.000-0.033) ng/mL NT-Pro-B Natriuret Pep (<300) pg/mL Serum Total Protein (6.3-8.2) g/dL Albumin (3.5-5.0) g/dL Lipase (23-300) U/L Urine Color (Yellow) Urine Appearance (Clear) Urine pH (4.6-8.0) Ur Specific [place] (1.005-1.030) Urine Protein (Negative) Urine Glucose (UA) (Negative) mg/dL Urine Ketones (Negative) Urine Blood (Negative) Urine Nitrite (Negative) Urine Bilirubin (Negative) Urine Urobilinogen (0.2) mg/dL Ur Leukocyte Esterase (Negative) U Hyaline Cast (Auto) (0-2) /LPF Urine Microscopic RBC (0-5) /HPF Urine Microscopic WBC (0-5) /HPF Ur Epithelial Cells (None Seen) /HPF Urine Bacteria (None Seen) /HPF Urine Culture Reflexed (NO) Ethyl Alcohol (0-10) mg/dL Influenza Type A Ag (NEGATIVE) Influenza Type B Ag (NEGATIVE) RSV (PCR) (NEGATIVE) SARS-CoV-2 (PCR) (NEGATIVE) Slides for Path Review 10/18/24 10/18/24 10/18/24 Range/Units 15:13 15:33 16:11 WBC (4.23-9.07) x10^3/uL RBC (4.63-6.08) x10^6/uL Hgb (13.7-17.5) g/dL Hct (40.1-51.0) % MCV (79.0-92.2) fL MCH (25.7-32.2) pg MCHC (32.3-36.5) g/dL RDW (11.6-14.4) % Plt Count (163-337) x10^3/uL MPV (9.4-12.4) fL Gran % (34.0-67.9) % Immature Gran % (Auto) (0.001-0.429) % Nucleat RBC Rel Count (0.00-0.2) % Eos # (Auto) (0.04-0.54) x10^3/uL Immature Gran # (Auto) (0.001-0.031) x10^3u/L Absolute Lymphs (auto) (1.32-3.57) x10^3/uL Absolute Monos (auto) (0.30-0.82) x10^3/uL Absolute Nucleated RBC (0.00-0.012) x10^3u/L Lymphocytes % (21.8-53.1) % Monocytes % (5.3-12.2) % Eosinophils % (0.8-7.0) % Basophils % (0.2-1.2) % Absolute Granulocytes (1.78-5.38) x10^3/uL Basophils # (0.01-0.08) x10^3/uL PT (9.4-12.5) SECONDS INR (0.8-3.0) APTT (25.1-36.5) SECONDS Puncture Site pCO2 (35-45) mmHg pO2 (75-100) mmHg pO2/FiO2 Ratio % Base Excess (-2.0-2.0) O2 Saturation (94-100) g/dF ABG pH (7.35-7.45) ABG HCO3 (22-28) ABG O2 Sat (Measured) (95-100) % Wesley Test VBG pH (7.32-7.42) VBG pCO2 at Pat Temp (42-55) mm/Hg VBG pO2 at Pat Temp (25-40) mm/Hg VBG HCO3 (22-28) meq/L VBG O2 Sat (Lillian) (95-100) VBG Base Excess (-2.0-2.0) VBG Hemoglobin VBG Carboxyhemoglobin (0.0-6.9) % T HGB A-a Gradient a/A Ratio Hemoglobin Carboxyhemoglobin (0.0-6.9) % THgb Methemoglobin (1.4-1.5) % POC Potassium (3.5-5.1) Temperature C POC O2 Flow Rate % Sodium (135-145) mmol/L Potassium (3.5-5.1) mmol/L Chloride (98-107) mmol/L Carbon Dioxide (22-30) mmol/L Anion Gap BUN (9-20) mg/dL Creatinine (0.66-1.25) mg/dL Estimated GFR ML/MIN Glucose (74-106) mg/dL POC Glucometer 347 H 326 H (74 to 106) mg/dL Hemoglobin A1c (4.5-6.0) % Lactic Acid Cancelled (0.4-2.0) Calcium (8.4-10.2) mg/dL Phosphorus (2.5-4.5) mg/dL Magnesium (1.6-2.3) mg/dL Total Bilirubin (0.2-1.3) mg/dL AST (17-59) U/L ALT (0-50) U/L Alkaline Phosphatase (38-126) U/L Troponin I (0.000-0.033) ng/mL NT-Pro-B Natriuret Pep (<300) pg/mL Serum Total Protein (6.3-8.2) g/dL Albumin (3.5-5.0) g/dL Lipase (23-300) U/L Urine Color (Yellow) Urine Appearance (Clear) Urine pH (4.6-8.0) Ur Specific [place] (1.005-1.030) Urine Protein (Negative) Urine Glucose (UA) (Negative) mg/dL Urine Ketones (Negative) Urine Blood (Negative) Urine Nitrite (Negative) Urine Bilirubin (Negative) Urine Urobilinogen (0.2) mg/dL Ur Leukocyte Esterase (Negative) U Hyaline Cast (Auto) (0-2) /LPF Urine Microscopic RBC (0-5) /HPF Urine Microscopic WBC (0-5) /HPF Ur Epithelial Cells (None Seen) /HPF Urine Bacteria (None Seen) /HPF Urine Culture Reflexed (NO) Ethyl Alcohol (0-10) mg/dL Influenza Type A Ag (NEGATIVE) Influenza Type B Ag (NEGATIVE) RSV (PCR) (NEGATIVE) SARS-CoV-2 (PCR) (NEGATIVE) Slides for Path Review 10/18/24 10/18/24 10/18/24 Range/Units 17:05 17:15 17:25 WBC (4.23-9.07) x10^3/uL RBC (4.63-6.08) x10^6/uL Hgb (13.7-17.5) g/dL Hct (40.1-51.0) % MCV (79.0-92.2) fL MCH (25.7-32.2) pg MCHC (32.3-36.5) g/dL RDW (11.6-14.4) % Plt Count (163-337) x10^3/uL MPV (9.4-12.4) fL Gran % (34.0-67.9) % Immature Gran % (Auto) (0.001-0.429) % Nucleat RBC Rel Count (0.00-0.2) % Eos # (Auto) (0.04-0.54) x10^3/uL Immature Gran # (Auto) (0.001-0.031) x10^3u/L Absolute Lymphs (auto) (1.32-3.57) x10^3/uL Absolute Monos (auto) (0.30-0.82) x10^3/uL Absolute Nucleated RBC (0.00-0.012) x10^3u/L Lymphocytes % (21.8-53.1) % Monocytes % (5.3-12.2) % Eosinophils % (0.8-7.0) % Basophils % (0.2-1.2) % Absolute Granulocytes (1.78-5.38) x10^3/uL Basophils # (0.01-0.08) x10^3/uL PT (9.4-12.5) SECONDS INR (0.8-3.0) APTT (25.1-36.5) SECONDS Puncture Site LEFT BRACHIAL pCO2 11 L* (35-45) mmHg pO2 143 H* (75-100) mmHg pO2/FiO2 Ratio % Base Excess -24.2 L (-2.0-2.0) O2 Saturation 97.7 (94-100) g/dF ABG pH 7.09 L* (7.35-7.45) ABG HCO3 3.3 L* (22-28) ABG O2 Sat (Measured) 99.2 (95-100) % Wesley Test NOT APPLICABLE VBG pH (7.32-7.42) VBG pCO2 at Pat Temp (42-55) mm/Hg VBG pO2 at Pat Temp (25-40) mm/Hg VBG HCO3 (22-28) meq/L VBG O2 Sat (Lillian) (95-100) VBG Base Excess (-2.0-2.0) VBG Hemoglobin VBG Carboxyhemoglobin (0.0-6.9) % T HGB A-a Gradient 43 a/A Ratio 0.77 Hemoglobin 14.0 Carboxyhemoglobin 0.4 (0.0-6.9) % THgb Methemoglobin 1.0 L (1.4-1.5) % POC Potassium (3.5-5.1) Temperature 37.0 C POC O2 Flow Rate 28 % Sodium (135-145) mmol/L Potassium 4.8 (3.5-5.1) mmol/L Chloride (98-107) mmol/L Carbon Dioxide (22-30) mmol/L Anion Gap BUN (9-20) mg/dL Creatinine (0.66-1.25) mg/dL Estimated GFR ML/MIN Glucose (74-106) mg/dL POC Glucometer 351 H (74 to 106) mg/dL Hemoglobin A1c (4.5-6.0) % Lactic Acid 1.6 (0.4-2.0) Calcium (8.4-10.2) mg/dL Phosphorus (2.5-4.5) mg/dL Magnesium (1.6-2.3) mg/dL Total Bilirubin (0.2-1.3) mg/dL AST (17-59) U/L ALT (0-50) U/L Alkaline Phosphatase (38-126) U/L Troponin I (0.000-0.033) ng/mL NT-Pro-B Natriuret Pep (<300) pg/mL Serum Total Protein (6.3-8.2) g/dL Albumin (3.5-5.0) g/dL Lipase (23-300) U/L Urine Color (Yellow) Urine Appearance (Clear) Urine pH (4.6-8.0) Ur Specific [place] (1.005-1.030) Urine Protein (Negative) Urine Glucose (UA) (Negative) mg/dL Urine Ketones (Negative) Urine Blood (Negative) Urine Nitrite (Negative) Urine Bilirubin (Negative) Urine Urobilinogen (0.2) mg/dL Ur Leukocyte Esterase (Negative) U Hyaline Cast (Auto) (0-2) /LPF Urine Microscopic RBC (0-5) /HPF Urine Microscopic WBC (0-5) /HPF Ur Epithelial Cells (None Seen) /HPF Urine Bacteria (None Seen) /HPF Urine Culture Reflexed (NO) Ethyl Alcohol (0-10) mg/dL Influenza Type A Ag (NEGATIVE) Influenza Type B Ag (NEGATIVE) RSV (PCR) (NEGATIVE) SARS-CoV-2 (PCR) (NEGATIVE) Slides for Path Review 10/18/24 10/18/24 10/18/24 Range/Units 18:06 18:45 18:45 WBC (4.23-9.07) x10^3/uL RBC (4.63-6.08) x10^6/uL Hgb (13.7-17.5) g/dL Hct (40.1-51.0) % MCV (79.0-92.2) fL MCH (25.7-32.2) pg MCHC (32.3-36.5) g/dL RDW (11.6-14.4) % Plt Count (163-337) x10^3/uL MPV (9.4-12.4) fL Gran % (34.0-67.9) % Immature Gran % (Auto) (0.001-0.429) % Nucleat RBC Rel Count (0.00-0.2) % Eos # (Auto) (0.04-0.54) x10^3/uL Immature Gran # (Auto) (0.001-0.031) x10^3u/L Absolute Lymphs (auto) (1.32-3.57) x10^3/uL Absolute Monos (auto) (0.30-0.82) x10^3/uL Absolute Nucleated RBC (0.00-0.012) x10^3u/L Lymphocytes % (21.8-53.1) % Monocytes % (5.3-12.2) % Eosinophils % (0.8-7.0) % Basophils % (0.2-1.2) % Absolute Granulocytes (1.78-5.38) x10^3/uL Basophils # (0.01-0.08) x10^3/uL PT (9.4-12.5) SECONDS INR (0.8-3.0) APTT (25.1-36.5) SECONDS Puncture Site pCO2 (35-45) mmHg pO2 (75-100) mmHg pO2/FiO2 Ratio % Base Excess (-2.0-2.0) O2 Saturation (94-100) g/dF ABG pH (7.35-7.45) ABG HCO3 (22-28) ABG O2 Sat (Measured) (95-100) % Wesley Test VBG pH (7.32-7.42) VBG pCO2 at Pat Temp (42-55) mm/Hg VBG pO2 at Pat Temp (25-40) mm/Hg VBG HCO3 (22-28) meq/L VBG O2 Sat (Lillian) (95-100) VBG Base Excess (-2.0-2.0) VBG Hemoglobin VBG Carboxyhemoglobin (0.0-6.9) % T HGB A-a Gradient a/A Ratio Hemoglobin Carboxyhemoglobin (0.0-6.9) % THgb Methemoglobin (1.4-1.5) % POC Potassium (3.5-5.1) Temperature C POC O2 Flow Rate % Sodium 147 H (135-145) mmol/L Potassium 4.8 (3.5-5.1) mmol/L Chloride 117 H (98-107) mmol/L Carbon Dioxide < 5 L* (22-30) mmol/L Anion Gap BUN 36 H (9-20) mg/dL Creatinine 1.47 H (0.66-1.25) mg/dL Estimated GFR 51.0 ML/MIN Glucose 332 H (74-106) mg/dL POC Glucometer 339 H (74 to 106) mg/dL Hemoglobin A1c (4.5-6.0) % Lactic Acid (0.4-2.0) Calcium 9.5 (8.4-10.2) mg/dL Phosphorus 5.1 H (2.5-4.5) mg/dL Magnesium 2.8 H (1.6-2.3) mg/dL Total Bilirubin (0.2-1.3) mg/dL AST (17-59) U/L ALT (0-50) U/L Alkaline Phosphatase (38-126) U/L Troponin I (0.000-0.033) ng/mL NT-Pro-B Natriuret Pep (<300) pg/mL Serum Total Protein (6.3-8.2) g/dL Albumin (3.5-5.0) g/dL Lipase (23-300) U/L Urine Color (Yellow) Urine Appearance (Clear) Urine pH (4.6-8.0) Ur Specific [place] (1.005-1.030) Urine Protein (Negative) Urine Glucose (UA) (Negative) mg/dL Urine Ketones (Negative) Urine Blood (Negative) Urine Nitrite (Negative) Urine Bilirubin (Negative) Urine Urobilinogen (0.2) mg/dL Ur Leukocyte Esterase (Negative) U Hyaline Cast (Auto) (0-2) /LPF Urine Microscopic RBC (0-5) /HPF Urine Microscopic WBC (0-5) /HPF Ur Epithelial Cells (None Seen) /HPF Urine Bacteria (None Seen) /HPF Urine Culture Reflexed (NO) Ethyl Alcohol (0-10) mg/dL Influenza Type A Ag (NEGATIVE) Influenza Type B Ag (NEGATIVE) RSV (PCR) (NEGATIVE) SARS-CoV-2 (PCR) (NEGATIVE) Slides for Path Review 10/18/24 10/18/24 10/18/24 Range/Units 19:05 20:08 20:45 WBC (4.23-9.07) x10^3/uL RBC (4.63-6.08) x10^6/uL Hgb (13.7-17.5) g/dL Hct (40.1-51.0) % MCV (79.0-92.2) fL MCH (25.7-32.2) pg MCHC (32.3-36.5) g/dL RDW (11.6-14.4) % Plt Count (163-337) x10^3/uL MPV (9.4-12.4) fL Gran % (34.0-67.9) % Immature Gran % (Auto) (0.001-0.429) % Nucleat RBC Rel Count (0.00-0.2) % Eos # (Auto) (0.04-0.54) x10^3/uL Immature Gran # (Auto) (0.001-0.031) x10^3u/L Absolute Lymphs (auto) (1.32-3.57) x10^3/uL Absolute Monos (auto) (0.30-0.82) x10^3/uL Absolute Nucleated RBC (0.00-0.012) x10^3u/L Lymphocytes % (21.8-53.1) % Monocytes % (5.3-12.2) % Eosinophils % (0.8-7.0) % Basophils % (0.2-1.2) % Absolute Granulocytes (1.78-5.38) x10^3/uL Basophils # (0.01-0.08) x10^3/uL PT (9.4-12.5) SECONDS INR (0.8-3.0) APTT (25.1-36.5) SECONDS Puncture Site pCO2 (35-45) mmHg pO2 (75-100) mmHg pO2/FiO2 Ratio % Base Excess (-2.0-2.0) O2 Saturation (94-100) g/dF ABG pH (7.35-7.45) ABG HCO3 (22-28) ABG O2 Sat (Measured) (95-100) % Wesley Test VBG pH (7.32-7.42) VBG pCO2 at Pat Temp (42-55) mm/Hg VBG pO2 at Pat Temp (25-40) mm/Hg VBG HCO3 (22-28) meq/L VBG O2 Sat (Lillian) (95-100) VBG Base Excess (-2.0-2.0) VBG Hemoglobin VBG Carboxyhemoglobin (0.0-6.9) % T HGB A-a Gradient a/A Ratio Hemoglobin Carboxyhemoglobin (0.0-6.9) % THgb Methemoglobin (1.4-1.5) % POC Potassium (3.5-5.1) Temperature C POC O2 Flow Rate % Sodium (135-145) mmol/L Potassium (3.5-5.1) mmol/L Chloride (98-107) mmol/L Carbon Dioxide (22-30) mmol/L Anion Gap BUN (9-20) mg/dL Creatinine (0.66-1.25) mg/dL Estimated GFR ML/MIN Glucose (74-106) mg/dL POC Glucometer 307 H 246 H (74 to 106) mg/dL Hemoglobin A1c (4.5-6.0) % Lactic Acid (0.4-2.0) Calcium (8.4-10.2) mg/dL Phosphorus (2.5-4.5) mg/dL Magnesium (1.6-2.3) mg/dL Total Bilirubin (0.2-1.3) mg/dL AST (17-59) U/L ALT (0-50) U/L Alkaline Phosphatase (38-126) U/L Troponin I 0.058 H* (0.000-0.033) ng/mL NT-Pro-B Natriuret Pep (<300) pg/mL Serum Total Protein (6.3-8.2) g/dL Albumin (3.5-5.0) g/dL Lipase (23-300) U/L Urine Color (Yellow) Urine Appearance (Clear) Urine pH (4.6-8.0) Ur Specific [place] (1.005-1.030) Urine Protein (Negative) Urine Glucose (UA) (Negative) mg/dL Urine Ketones (Negative) Urine Blood (Negative) Urine Nitrite (Negative) Urine Bilirubin (Negative) Urine Urobilinogen (0.2) mg/dL Ur Leukocyte Esterase (Negative) U Hyaline Cast (Auto) (0-2) /LPF Urine Microscopic RBC (0-5) /HPF Urine Microscopic WBC (0-5) /HPF Ur Epithelial Cells (None Seen) /HPF Urine Bacteria (None Seen) /HPF Urine Culture Reflexed (NO) Ethyl Alcohol (0-10) mg/dL Influenza Type A Ag (NEGATIVE) Influenza Type B Ag (NEGATIVE) RSV (PCR) (NEGATIVE) SARS-CoV-2 (PCR) (NEGATIVE) Slides for Path Review 10/18/24 10/18/24 10/18/24 Range/Units 20:45 20:45 21:10 WBC (4.23-9.07) x10^3/uL RBC (4.63-6.08) x10^6/uL Hgb (13.7-17.5) g/dL Hct (40.1-51.0) % MCV (79.0-92.2) fL MCH (25.7-32.2) pg MCHC (32.3-36.5) g/dL RDW (11.6-14.4) % Plt Count (163-337) x10^3/uL MPV (9.4-12.4) fL Gran % (34.0-67.9) % Immature Gran % (Auto) (0.001-0.429) % Nucleat RBC Rel Count (0.00-0.2) % Eos # (Auto) (0.04-0.54) x10^3/uL Immature Gran # (Auto) (0.001-0.031) x10^3u/L Absolute Lymphs (auto) (1.32-3.57) x10^3/uL Absolute Monos (auto) (0.30-0.82) x10^3/uL Absolute Nucleated RBC (0.00-0.012) x10^3u/L Lymphocytes % (21.8-53.1) % Monocytes % (5.3-12.2) % Eosinophils % (0.8-7.0) % Basophils % (0.2-1.2) % Absolute Granulocytes (1.78-5.38) x10^3/uL Basophils # (0.01-0.08) x10^3/uL PT (9.4-12.5) SECONDS INR (0.8-3.0) APTT (25.1-36.5) SECONDS Puncture Site LEFT BRACHIAL pCO2 12 L* (35-45) mmHg pO2 145 H* (75-100) mmHg pO2/FiO2 Ratio % Base Excess -20.1 L (-2.0-2.0) O2 Saturation 95.0 (94-100) g/dF ABG pH 7.22 L* (7.35-7.45) ABG HCO3 4.9 L* (22-28) ABG O2 Sat (Measured) 100.0 (95-100) % Wesley Test NOT APPLICABLE VBG pH (7.32-7.42) VBG pCO2 at Pat Temp (42-55) mm/Hg VBG pO2 at Pat Temp (25-40) mm/Hg VBG HCO3 (22-28) meq/L VBG O2 Sat (Lillian) (95-100) VBG Base Excess (-2.0-2.0) VBG Hemoglobin VBG Carboxyhemoglobin (0.0-6.9) % T HGB A-a Gradient -10 a/A Ratio 1.07 Hemoglobin 13.6 Carboxyhemoglobin 3.9 (0.0-6.9) % THgb Methemoglobin 1.0 L (1.4-1.5) % POC Potassium (3.5-5.1) Temperature 37.0 C POC O2 Flow Rate 21 % Sodium 147 H (135-145) mmol/L Potassium 4.1 4.1 (3.5-5.1) mmol/L Chloride 118 H (98-107) mmol/L Carbon Dioxide < 5 L* (22-30) mmol/L Anion Gap BUN 36 H (9-20) mg/dL Creatinine 1.39 H (0.66-1.25) mg/dL Estimated GFR 54.5 ML/MIN Glucose 265 H (74-106) mg/dL POC Glucometer 276 H (74 to 106) mg/dL Hemoglobin A1c (4.5-6.0) % Lactic Acid (0.4-2.0) Calcium 9.3 (8.4-10.2) mg/dL Phosphorus 3.3 (2.5-4.5) mg/dL Magnesium (1.6-2.3) mg/dL Total Bilirubin (0.2-1.3) mg/dL AST (17-59) U/L ALT (0-50) U/L Alkaline Phosphatase (38-126) U/L Troponin I (0.000-0.033) ng/mL NT-Pro-B Natriuret Pep (<300) pg/mL Serum Total Protein (6.3-8.2) g/dL Albumin (3.5-5.0) g/dL Lipase (23-300) U/L Urine Color (Yellow) Urine Appearance (Clear) Urine pH (4.6-8.0) Ur Specific [place] (1.005-1.030) Urine Protein (Negative) Urine Glucose (UA) (Negative) mg/dL Urine Ketones (Negative) Urine Blood (Negative) Urine Nitrite (Negative) Urine Bilirubin (Negative) Urine Urobilinogen (0.2) mg/dL Ur Leukocyte Esterase (Negative) U Hyaline Cast (Auto) (0-2) /LPF Urine Microscopic RBC (0-5) /HPF Urine Microscopic WBC (0-5) /HPF Ur Epithelial Cells (None Seen) /HPF Urine Bacteria (None Seen) /HPF Urine Culture Reflexed (NO) Ethyl Alcohol (0-10) mg/dL Influenza Type A Ag (NEGATIVE) Influenza Type B Ag (NEGATIVE) RSV (PCR) (NEGATIVE) SARS-CoV-2 (PCR) (NEGATIVE) Slides for Path Review 10/18/24 10/18/24 10/19/24 Range/Units 22:16 23:12 00:07 WBC (4.23-9.07) x10^3/uL RBC (4.63-6.08) x10^6/uL Hgb (13.7-17.5) g/dL Hct (40.1-51.0) % MCV (79.0-92.2) fL MCH (25.7-32.2) pg MCHC (32.3-36.5) g/dL RDW (11.6-14.4) % Plt Count (163-337) x10^3/uL MPV (9.4-12.4) fL Gran % (34.0-67.9) % Immature Gran % (Auto) (0.001-0.429) % Nucleat RBC Rel Count (0.00-0.2) % Eos # (Auto) (0.04-0.54) x10^3/uL Immature Gran # (Auto) (0.001-0.031) x10^3u/L Absolute Lymphs (auto) (1.32-3.57) x10^3/uL Absolute Monos (auto) (0.30-0.82) x10^3/uL Absolute Nucleated RBC (0.00-0.012) x10^3u/L Lymphocytes % (21.8-53.1) % Monocytes % (5.3-12.2) % Eosinophils % (0.8-7.0) % Basophils % (0.2-1.2) % Absolute Granulocytes (1.78-5.38) x10^3/uL Basophils # (0.01-0.08) x10^3/uL PT (9.4-12.5) SECONDS INR (0.8-3.0) APTT (25.1-36.5) SECONDS Puncture Site pCO2 (35-45) mmHg pO2 (75-100) mmHg pO2/FiO2 Ratio % Base Excess (-2.0-2.0) O2 Saturation (94-100) g/dF ABG pH (7.35-7.45) ABG HCO3 (22-28) ABG O2 Sat (Measured) (95-100) % Wesley Test VBG pH (7.32-7.42) VBG pCO2 at Pat Temp (42-55) mm/Hg VBG pO2 at Pat Temp (25-40) mm/Hg VBG HCO3 (22-28) meq/L VBG O2 Sat (Lillian) (95-100) VBG Base Excess (-2.0-2.0) VBG Hemoglobin VBG Carboxyhemoglobin (0.0-6.9) % T HGB A-a Gradient a/A Ratio Hemoglobin Carboxyhemoglobin (0.0-6.9) % THgb Methemoglobin (1.4-1.5) % POC Potassium (3.5-5.1) Temperature C POC O2 Flow Rate % Sodium (135-145) mmol/L Potassium (3.5-5.1) mmol/L Chloride (98-107) mmol/L Carbon Dioxide (22-30) mmol/L Anion Gap BUN (9-20) mg/dL Creatinine (0.66-1.25) mg/dL Estimated GFR ML/MIN Glucose (74-106) mg/dL POC Glucometer 247 H 236 H 231 H (74 to 106) mg/dL Hemoglobin A1c (4.5-6.0) % Lactic Acid (0.4-2.0) Calcium (8.4-10.2) mg/dL Phosphorus (2.5-4.5) mg/dL Magnesium (1.6-2.3) mg/dL Total Bilirubin (0.2-1.3) mg/dL AST (17-59) U/L ALT (0-50) U/L Alkaline Phosphatase (38-126) U/L Troponin I (0.000-0.033) ng/mL NT-Pro-B Natriuret Pep (<300) pg/mL Serum Total Protein (6.3-8.2) g/dL Albumin (3.5-5.0) g/dL Lipase (23-300) U/L Urine Color (Yellow) Urine Appearance (Clear) Urine pH (4.6-8.0) Ur Specific [place] (1.005-1.030) Urine Protein (Negative) Urine Glucose (UA) (Negative) mg/dL Urine Ketones (Negative) Urine Blood (Negative) Urine Nitrite (Negative) Urine Bilirubin (Negative) Urine Urobilinogen (0.2) mg/dL Ur Leukocyte Esterase (Negative) U Hyaline Cast (Auto) (0-2) /LPF Urine Microscopic RBC (0-5) /HPF Urine Microscopic WBC (0-5) /HPF Ur Epithelial Cells (None Seen) /HPF Urine Bacteria (None Seen) /HPF Urine Culture Reflexed (NO) Ethyl Alcohol (0-10) mg/dL Influenza Type A Ag (NEGATIVE) Influenza Type B Ag (NEGATIVE) RSV (PCR) (NEGATIVE) SARS-CoV-2 (PCR) (NEGATIVE) Slides for Path Review 10/19/24 10/19/24 10/19/24 Range/Units 01:00 01:04 01:05 WBC (4.23-9.07) x10^3/uL RBC (4.63-6.08) x10^6/uL Hgb (13.7-17.5) g/dL Hct (40.1-51.0) % MCV (79.0-92.2) fL MCH (25.7-32.2) pg MCHC (32.3-36.5) g/dL RDW (11.6-14.4) % Plt Count (163-337) x10^3/uL MPV (9.4-12.4) fL Gran % (34.0-67.9) % Immature Gran % (Auto) (0.001-0.429) % Nucleat RBC Rel Count (0.00-0.2) % Eos # (Auto) (0.04-0.54) x10^3/uL Immature Gran # (Auto) (0.001-0.031) x10^3u/L Absolute Lymphs (auto) (1.32-3.57) x10^3/uL Absolute Monos (auto) (0.30-0.82) x10^3/uL Absolute Nucleated RBC (0.00-0.012) x10^3u/L Lymphocytes % (21.8-53.1) % Monocytes % (5.3-12.2) % Eosinophils % (0.8-7.0) % Basophils % (0.2-1.2) % Absolute Granulocytes (1.78-5.38) x10^3/uL Basophils # (0.01-0.08) x10^3/uL PT (9.4-12.5) SECONDS INR (0.8-3.0) APTT (25.1-36.5) SECONDS Puncture Site LEFT BRACHIAL pCO2 24 L (35-45) mmHg pO2 93 (75-100) mmHg pO2/FiO2 Ratio % Base Excess -13.3 L (-2.0-2.0) O2 Saturation 97.2 (94-100) g/dF ABG pH 7.29 L (7.35-7.45) ABG HCO3 11.5 L* (22-28) ABG O2 Sat (Measured) 99.1 (95-100) % Wesley Test NOT APPLICABLE VBG pH (7.32-7.42) VBG pCO2 at Pat Temp (42-55) mm/Hg VBG pO2 at Pat Temp (25-40) mm/Hg VBG HCO3 (22-28) meq/L VBG O2 Sat (Lillian) (95-100) VBG Base Excess (-2.0-2.0) VBG Hemoglobin VBG Carboxyhemoglobin (0.0-6.9) % T HGB A-a Gradient 27 a/A Ratio 0.78 Hemoglobin 12.6 Carboxyhemoglobin 0.9 (0.0-6.9) % THgb Methemoglobin 1.0 L (1.4-1.5) % POC Potassium (3.5-5.1) Temperature 37.0 C POC O2 Flow Rate 21 % Sodium 145 (135-145) mmol/L Potassium 3.6 3.5 (3.5-5.1) mmol/L Chloride 120 H (98-107) mmol/L Carbon Dioxide 8 L* (22-30) mmol/L Anion Gap 20.9 H BUN 34 H (9-20) mg/dL Creatinine 1.12 (0.66-1.25) mg/dL Estimated GFR 70.7 ML/MIN Glucose 214 H (74-106) mg/dL POC Glucometer 213 H (74 to 106) mg/dL Hemoglobin A1c (4.5-6.0) % Lactic Acid (0.4-2.0) Calcium 9.2 (8.4-10.2) mg/dL Phosphorus (2.5-4.5) mg/dL Magnesium (1.6-2.3) mg/dL Total Bilirubin (0.2-1.3) mg/dL AST (17-59) U/L ALT (0-50) U/L Alkaline Phosphatase (38-126) U/L Troponin I (0.000-0.033) ng/mL NT-Pro-B Natriuret Pep (<300) pg/mL Serum Total Protein (6.3-8.2) g/dL Albumin (3.5-5.0) g/dL Lipase (23-300) U/L Urine Color (Yellow) Urine Appearance (Clear) Urine pH (4.6-8.0) Ur Specific [place] (1.005-1.030) Urine Protein (Negative) Urine Glucose (UA) (Negative) mg/dL Urine Ketones (Negative) Urine Blood (Negative) Urine Nitrite (Negative) Urine Bilirubin (Negative) Urine Urobilinogen (0.2) mg/dL Ur Leukocyte Esterase (Negative) U Hyaline Cast (Auto) (0-2) /LPF Urine Microscopic RBC (0-5) /HPF Urine Microscopic WBC (0-5) /HPF Ur Epithelial Cells (None Seen) /HPF Urine Bacteria (None Seen) /HPF Urine Culture Reflexed (NO) Ethyl Alcohol (0-10) mg/dL Influenza Type A Ag (NEGATIVE) Influenza Type B Ag (NEGATIVE) RSV (PCR) (NEGATIVE) SARS-CoV-2 (PCR) (NEGATIVE) Slides for Path Review 10/19/24 10/19/24 10/19/24 Range/Units 02:07 03:08 04:24 WBC (4.23-9.07) x10^3/uL RBC (4.63-6.08) x10^6/uL Hgb (13.7-17.5) g/dL Hct (40.1-51.0) % MCV (79.0-92.2) fL MCH (25.7-32.2) pg MCHC (32.3-36.5) g/dL RDW (11.6-14.4) % Plt Count (163-337) x10^3/uL MPV (9.4-12.4) fL Gran % (34.0-67.9) % Immature Gran % (Auto) (0.001-0.429) % Nucleat RBC Rel Count (0.00-0.2) % Eos # (Auto) (0.04-0.54) x10^3/uL Immature Gran # (Auto) (0.001-0.031) x10^3u/L Absolute Lymphs (auto) (1.32-3.57) x10^3/uL Absolute Monos (auto) (0.30-0.82) x10^3/uL Absolute Nucleated RBC (0.00-0.012) x10^3u/L Lymphocytes % (21.8-53.1) % Monocytes % (5.3-12.2) % Eosinophils % (0.8-7.0) % Basophils % (0.2-1.2) % Absolute Granulocytes (1.78-5.38) x10^3/uL Basophils # (0.01-0.08) x10^3/uL PT (9.4-12.5) SECONDS INR (0.8-3.0) APTT (25.1-36.5) SECONDS Puncture Site pCO2 (35-45) mmHg pO2 (75-100) mmHg pO2/FiO2 Ratio % Base Excess (-2.0-2.0) O2 Saturation (94-100) g/dF ABG pH (7.35-7.45) ABG HCO3 (22-28) ABG O2 Sat (Measured) (95-100) % Wesley Test VBG pH (7.32-7.42) VBG pCO2 at Pat Temp (42-55) mm/Hg VBG pO2 at Pat Temp (25-40) mm/Hg VBG HCO3 (22-28) meq/L VBG O2 Sat (Lillian) (95-100) VBG Base Excess (-2.0-2.0) VBG Hemoglobin VBG Carboxyhemoglobin (0.0-6.9) % T HGB A-a Gradient a/A Ratio Hemoglobin Carboxyhemoglobin (0.0-6.9) % THgb Methemoglobin (1.4-1.5) % POC Potassium (3.5-5.1) Temperature C POC O2 Flow Rate % Sodium (135-145) mmol/L Potassium (3.5-5.1) mmol/L Chloride (98-107) mmol/L Carbon Dioxide (22-30) mmol/L Anion Gap BUN (9-20) mg/dL Creatinine (0.66-1.25) mg/dL Estimated GFR ML/MIN Glucose (74-106) mg/dL POC Glucometer 193 H 174 H 137 H (74 to 106) mg/dL Hemoglobin A1c (4.5-6.0) % Lactic Acid (0.4-2.0) Calcium (8.4-10.2) mg/dL Phosphorus (2.5-4.5) mg/dL Magnesium (1.6-2.3) mg/dL Total Bilirubin (0.2-1.3) mg/dL AST (17-59) U/L ALT (0-50) U/L Alkaline Phosphatase (38-126) U/L Troponin I (0.000-0.033) ng/mL NT-Pro-B Natriuret Pep (<300) pg/mL Serum Total Protein (6.3-8.2) g/dL Albumin (3.5-5.0) g/dL Lipase (23-300) U/L Urine Color (Yellow) Urine Appearance (Clear) Urine pH (4.6-8.0) Ur Specific [place] (1.005-1.030) Urine Protein (Negative) Urine Glucose (UA) (Negative) mg/dL Urine Ketones (Negative) Urine Blood (Negative) Urine Nitrite (Negative) Urine Bilirubin (Negative) Urine Urobilinogen (0.2) mg/dL Ur Leukocyte Esterase (Negative) U Hyaline Cast (Auto) (0-2) /LPF Urine Microscopic RBC (0-5) /HPF Urine Microscopic WBC (0-5) /HPF Ur Epithelial Cells (None Seen) /HPF Urine Bacteria (None Seen) /HPF Urine Culture Reflexed (NO) Ethyl Alcohol (0-10) mg/dL Influenza Type A Ag (NEGATIVE) Influenza Type B Ag (NEGATIVE) RSV (PCR) (NEGATIVE) SARS-CoV-2 (PCR) (NEGATIVE) Slides for Path Review 10/19/24 10/19/24 Range/Units 04:35 04:47 WBC 16.8 H (4.23-9.07) x10^3/uL RBC 4.57 L (4.63-6.08) x10^6/uL Hgb 11.9 L (13.7-17.5) g/dL Hct 37.4 L (40.1-51.0) % MCV 81.8 D (79.0-92.2) fL MCH 26.0 (25.7-32.2) pg MCHC 31.8 L (32.3-36.5) g/dL RDW 17.1 H (11.6-14.4) % Plt Count 307 (163-337) x10^3/uL MPV 10.0 (9.4-12.4) fL Gran % 81.9 H (34.0-67.9) % Immature Gran % (Auto) 1.2 H (0.001-0.429) % Nucleat RBC Rel Count 0.0 (0.00-0.2) % Eos # (Auto) 0.03 L (0.04-0.54) x10^3/uL Immature Gran # (Auto) 0.21 H (0.001-0.031) x10^3u/L Absolute Lymphs (auto) 1.23 L (1.32-3.57) x10^3/uL Absolute Monos (auto) 1.55 H (0.30-0.82) x10^3/uL Absolute Nucleated RBC 0.00 (0.00-0.012) x10^3u/L Lymphocytes % 7.3 L (21.8-53.1) % Monocytes % 9.2 (5.3-12.2) % Eosinophils % 0.2 L (0.8-7.0) % Basophils % 0.2 (0.2-1.2) % Absolute Granulocytes 13.77 H (1.78-5.38) x10^3/uL Basophils # 0.04 (0.01-0.08) x10^3/uL PT (9.4-12.5) SECONDS INR (0.8-3.0) APTT (25.1-36.5) SECONDS Puncture Site LEFT BRACHIAL pCO2 26 L (35-45) mmHg pO2 124 H* (75-100) mmHg pO2/FiO2 Ratio % Base Excess -9.6 L (-2.0-2.0) O2 Saturation 95.9 (94-100) g/dF ABG pH 7.35 (7.35-7.45) ABG HCO3 14.4 L* (22-28) ABG O2 Sat (Measured) 100.0 (95-100) % Wesley Test NOT APPLICABLE VBG pH (7.32-7.42) VBG pCO2 at Pat Temp (42-55) mm/Hg VBG pO2 at Pat Temp (25-40) mm/Hg VBG HCO3 (22-28) meq/L VBG O2 Sat (Lillian) (95-100) VBG Base Excess (-2.0-2.0) VBG Hemoglobin VBG Carboxyhemoglobin (0.0-6.9) % T HGB A-a Gradient -7 a/A Ratio 1.06 Hemoglobin 12.6 Carboxyhemoglobin 3.2 (0.0-6.9) % THgb Methemoglobin 1.0 L (1.4-1.5) % POC Potassium (3.5-5.1) Temperature 37.0 C POC O2 Flow Rate 21 % Sodium (135-145) mmol/L Potassium 3.1 L (3.5-5.1) mmol/L Chloride (98-107) mmol/L Carbon Dioxide (22-30) mmol/L Anion Gap BUN (9-20) mg/dL Creatinine (0.66-1.25) mg/dL Estimated GFR ML/MIN Glucose (74-106) mg/dL POC Glucometer (74 to 106) mg/dL Hemoglobin A1c (4.5-6.0) % Lactic Acid (0.4-2.0) Calcium (8.4-10.2) mg/dL Phosphorus (2.5-4.5) mg/dL Magnesium (1.6-2.3) mg/dL Total Bilirubin (0.2-1.3) mg/dL AST (17-59) U/L ALT (0-50) U/L Alkaline Phosphatase (38-126) U/L Troponin I (0.000-0.033) ng/mL NT-Pro-B Natriuret Pep (<300) pg/mL Serum Total Protein (6.3-8.2) g/dL Albumin (3.5-5.0) g/dL Lipase (23-300) U/L Urine Color (Yellow) Urine Appearance (Clear) Urine pH (4.6-8.0) Ur Specific [place] (1.005-1.030) Urine Protein (Negative) Urine Glucose (UA) (Negative) mg/dL Urine Ketones (Negative) Urine Blood (Negative) Urine Nitrite (Negative) Urine Bilirubin (Negative) Urine Urobilinogen (0.2) mg/dL Ur Leukocyte Esterase (Negative) U Hyaline Cast (Auto) (0-2) /LPF Urine Microscopic RBC (0-5) /HPF Urine Microscopic WBC (0-5) /HPF Ur Epithelial Cells (None Seen) /HPF Urine Bacteria (None Seen) /HPF Urine Culture Reflexed (NO) Ethyl Alcohol (0-10) mg/dL Influenza Type A Ag (NEGATIVE) Influenza Type B Ag (NEGATIVE) RSV (PCR) (NEGATIVE) SARS-CoV-2 (PCR) (NEGATIVE) Slides for Path Review Radiology Exams: Radiology Procedures Category Date Time Status ABDOMEN AND PELVIS W/0 CONTRAS [CT] Stat Exams 10/18/24 11:51 Completed CHEST 1 VIEW (PORTABLE) Stat Exams 10/18/24 11:49 Completed HEAD WITHOUT CONTRAST [CT] Stat Exams 10/18/24 11:51 Completed Medications: Medications Generic Name Dose Route Start Last Admin Trade Name Freq PRN Reason Stop Dose Admin Acetaminophen 650 mg 10/18/24 17:11 Acetaminophen 325 Mg Tablet PO 11/17/24 17:10 Q4H PRN PRN PAIN, FEVER, HEADACHE Albuterol/Ipratropium 3 ml 10/18/24 17:11 Ipratropium/Albuterol Sulfate 3 Ml Ampul.Neb IH 11/17/24 18:59 Q6HRT PRN SHORTNESS OF BREATH/WHEEZING Enoxaparin Sodium 40 mg 10/19/24 10:00 Enoxaparin Sodium 40 Mg/0.4 Ml Syringe SQ 11/18/24 09:59 DAILY YANN INSULIN REGULAR IN 0.9 % NACL 100 unit in 100 mls @ 7.04 mls/hr 10/18/24 12:52 10/19/24 02:07 Myxredlin 100 Unit/100 Ml Bag IV 11/17/24 12:51 0.2 unit/kg/hr .[id number] PRN 14 mls/hr HYPERGLYCEMIA Titration Protocol 0.1 UNIT/KG/HR Piperacillin Sod/Tazobactam 100 mls @ 200 mls/hr 10/18/24 18:00 10/19/24 00:21 Sod 3.375 gm/ Sodium Chloride IV 10/21/24 17:59 200 mls/hr Q6HT YANN Administration Sodium Chloride 1,000 mls @ 150 mls/hr 10/18/24 17:30 10/18/24 20:03 Sodium Chloride 0.45% 1000 Ml IV 11/17/24 17:29 0 mls/hr .[id number] YANN Infusion Ondansetron HCl 4 mg 10/18/24 17:11 Ondansetron Hcl 4 Mg/2 Ml Vial IV 11/17/24 17:10 Q6H PRN PRN NAUSEA/VOMITING Discontinued Medications Generic Name Dose Route Start Last Admin Trade Name Freq PRN Reason Stop Dose Admin Albuterol Sulfate 10 mg 10/18/24 12:53 10/18/24 13:10 Albuterol Sulfate 2.5 Mg/3 Ml Neb IH 10/18/24 12:54 10 mg STAT ONE Administration Albuterol Sulfate Confirm 10/18/24 13:00 Albuterol Sulfate 2.5 Mg/3 Ml Neb Administered 10/18/24 13:01 Dose 2.5 mg IH .STK-MED ONE Calcium Chloride Confirm 10/18/24 13:06 Calcium Chloride 100 Mg/Ml 10ml Inj. Administered 10/18/24 13:07 Dose 1,000 mg .ROUTE .STK-MED ONE Calcium Gluconate Confirm 10/18/24 13:01 Calcium Gluconate 1000 Mg/10 Ml Vial Administered 10/18/24 13:02 Dose 1,000 mg IV .STK-MED ONE Sodium Chloride Confirm 10/18/24 12:21 Sodium Chloride 0.9% 1000 Ml Administered 10/18/24 12:22 Dose 1,000 mls @ ud .ROUTE .STK-MED ONE Sodium Chloride 1,000 mls @ 999 mls/hr 10/18/24 12:25 10/18/24 13:55 Sodium Chloride 0.9% 1000 Ml IV 10/18/24 13:25 Infused .Q1H1M STA Infusion Piperacillin Sod/Tazobactam 100 mls @ 200 mls/hr 10/18/24 12:44 10/18/24 14:58 Sod 4.5 gm/ Sodium Chloride IV 10/18/24 13:13 Infused STAT STA Infusion Calcium Chloride 1,000 mg/ 110 mls @ 440 mls/hr 10/18/24 13:15 10/18/24 13:36 Sodium Chloride IV 10/18/24 13:29 Infused ONCE ONE Infusion Sodium Chloride Confirm 10/18/24 13:12 Sodium Chloride 0.9% Administered 10/18/24 13:13 Dose 100 mls @ ud .ROUTE .STK-MED ONE Sodium Chloride 1,000 mls @ 999 mls/hr 10/18/24 13:33 10/18/24 14:58 Sodium Chloride 0.9% 1000 Ml IV 10/18/24 14:33 Infused .Q1H1M STA Infusion Sodium Chloride Confirm 10/18/24 14:01 Sodium Chloride 0.9% Administered 10/18/24 14:02 Dose 100 mls @ ud .ROUTE .STK-MED ONE Sodium Chloride Confirm 10/18/24 14:18 Sodium Chloride 0.9% 1000 Ml Administered 10/18/24 14:19 Dose 1,000 mls @ ud .ROUTE .STK-MED ONE Sodium Chloride 1,000 mls @ 100 mls/hr 10/18/24 14:45 10/18/24 14:44 Sodium Chloride 0.9% 1000 Ml IV 11/17/24 14:44 100 mls/hr .Q10H YANN Administration Potassium Chloride/Dextrose/Sod Cl Confirm 10/19/24 02:34 D5w/0.45ns W/ 20meq Kcl 1000 Ml Administered 10/19/24 02:35 Dose 1,000 mls @ ud IV .STK-MED ONE Insulin Glargine 45 unit 10/18/24 17:30 Insulin Glargine 1 Unit SQ 11/17/24 17:29 Q24H YANN Insulin Human Lispro 0 unit 10/18/24 17:30 Insulin Lispro 1 Unit SQ 11/17/24 17:29 UD PRN Piperacillin Sod/Tazobactam Sod Confirm 10/18/24 14:01 Piperacillin/Tazobactam Sodium 4.5 Gm Vial Administered 10/18/24 14:02 Dose 4.5 gm IV .STK-MED ONE Sodium Bicarbonate 50 meq 10/18/24 12:52 10/18/24 12:58 Sodium Bicarbonate 1 Meq/Ml 50ml Syringe IV 10/18/24 12:53 50 meq STAT ONE Administration Sodium Bicarbonate Confirm 10/18/24 12:57 Sodium Bicarbonate 1 Meq/Ml 50ml Syringe Administered 10/18/24 12:58 Dose 50 meq IV .STK-MED ONE Assessment/Plan (1) DKA (diabetic ketoacidoses) Current Visit: Yes Status: Acute Qualifiers: Diabetes mellitus type: other specified (including NGUYEN) Diabetes mellitus complication detail: without coma Qualified Code(s): E13.10 - Other specified diabetes mellitus with ketoacidosis without coma Assessment & Plan: -Supported by glucose >492 mg/dL, anion gap acidosis, low serum bicarbonate, profound acidemia (ABG pH 7.06, VBG pH 6.98), elevated ketones >160, glucosuria >1000, elevated lactic acid. -Complicated by electrolyte derangements including hyperkalemia (K+ up to 6.1 POC) and CHERIE. -Admit to ICU -Continue insulin drip per protocol -Given 50meq of sodium bicarb in ED -Change fluids to 1/2 NS due to hyperkalemia -transition to D5 once glucose <250 mg/dL - per protocol orders placed -BMP/ABG [id number] ABGs until acidosis resolves. -Consider bicarb if PH is less than/equal to 6.9 -Replace electrolytes as indicated; treat hyperkalemia if persistent >6 10/19/24: -Continue DKA protocol as ordered -Patient currently on insulin drip and D5 NS with electrolytes adjusted based on labs -insulin drip held this morning due to hypokalemia -Phos replaced with neutra phos x 2 - repeat lab in 4 hours -Continue IV insulin infusion until bicarbonate/CO2 improves (>18) despite gap closure, then transition to subcutaneous insulin per protocol - currently CO2 at 10 -ABG Code(s): E11.10 - TYPE 2 DIABETES MELLITUS WITH KETOACIDOSIS WITHOUT COMA (2) Sepsis Current Visit: No Status: Acute Qualifiers: Sepsis type: sepsis due to unspecified organism Sepsis acute organ dysfunction status: with acute organ dysfunction Severe sepsis acute organ dysfunction type: acute renal failure Acute renal failure type: unspecified Severe sepsis shock status: without septic shock Qualified Code(s): A41.9 - Sepsis, unspecified organism; R65.20 - Severe sepsis without septic shock; N17.9 - Acute kidney failure, unspecified Assessment & Plan: -Meet criteria with HR, RR, and WBC at 24.7, elevated lactic -unknown source of infection -May be reactive secondary to DKA -2L IVF bolus given -Monitor lactate trend (initially 3.5 - 2.2). -possible urinary source given distended bladder and enlarged prostate. No clear pulmonary or intra-abdominal source identified on imaging - zosyn given in ED - will continue -CT abdomen/pelvis showed a markedly distended urinary bladder raising concern for urinary outlet obstruction versus neurogenic bladder, with chronic findings of enlarged prostate, chronic diverticulosis, non-obstructive left renal calculi, cholelithiasis, fatty liver, and generalized arteriosclerotic disease. Chest X-ray revealed chronic cardiopulmonary changes without acute process. -Blood cultures pending 10/19: -WBC level improving at 16.8 -No evidence of infection -no antibiotics indicated at present. -Continue daily clinical reassessment and repeat cultures only if new fever or hemodynamic instability (3) Bladder distention Current Visit: Yes Status: Acute Assessment & Plan: -noted on CT, place torres for accurate I&O and urinary retention Code(s): N32.89 - OTHER SPECIFIED DISORDERS OF BLADDER (4) Recurrent falls Current Visit: Yes Status: Acute Assessment & Plan: -Low back pain post-fall; no acute fracture noted on available imaging, though further spinal evaluation may be warranted. Code(s): R29.6 - REPEATED FALLS (5) Diabetes mellitus Current Visit: Yes Status: Acute Assessment & Plan: -see DKA above -check A1c 10/19: -A1c 5.36 Code(s): E11.9 - TYPE 2 DIABETES MELLITUS WITHOUT COMPLICATIONS (6) CHERIE (acute kidney injury) Current Visit: Yes Status: Acute Assessment & Plan: -Optimize volume status with IV fluids. -unknown baseline -Monitor renal function and urine output. -Avoid nephrotoxic medications. 10/19: -creat now at 1.07- resolved -continue to monitor CMP daily Code(s): N17.9 - ACUTE KIDNEY FAILURE, UNSPECIFIED (7) BPH (benign prostatic hyperplasia) Current Visit: Yes Status: Acute Assessment & Plan: -shown on CT- FC placed for urinary retention- trial void in 24-48 hours -may need urology OP eval pending results -flomax Code(s): N40.0 - BENIGN PROSTATIC HYPERPLASIA WITHOUT LOWER URINRY TRACT SYMP (8) HTN (hypertension) Current Visit: Yes Status: Acute Assessment & Plan: -stable - continue home meds Code(s): I10 - ESSENTIAL (PRIMARY) HYPERTENSION (9) GERD (gastroesophageal reflux disease) Current Visit: Yes Status: Acute Assessment & Plan: -Protonix Code(s): K21.9 - GASTRO-ESOPHAGEAL REFLUX DISEASE WITHOUT ESOPHAGITIS (10) Hyperkalemia Current Visit: No Status: Acute Assessment & Plan: -Tele -monitor and replenish per DKA protocol VTE: lovenox PPI: protonix Dispo: 2-3 days Code status: Critical care services were provided for this patient due to imminent risk of life-threatening deterioration secondary to severe diabetic ketoacidosis with profound metabolic acidosis (pH ~7.0, HCO2 <5), hyperkalemia, acute kidney injury, and altered metabolic status. The patient required continuous bedside assessment, aggressive IV fluid resuscitation, initiation and titration of insulin infusion, electrolyte management with high risk of rapid shifts, consideration of bicarbonate therapy, interpretation of serial arterial/venous blood gases, frequent review of laboratory and imaging results, and coordination of care with nursing and specialty services. Interventions were necessary to prevent cardiovascular collapse, arrhythmia, respiratory failure, and . Total critical care time 60 minutes, exclusive of separately billable procedures. Code(s): E87.5 - HYPERKALEMIA Code(s): E11.10 - TYPE 2 DIABETES MELLITUS WITH KETOACIDOSIS WITHOUT COMA (2) Sepsis Current Visit: No Status: Acute Qualifiers: Sepsis type: sepsis due to unspecified organism Sepsis acute organ dysfunction status: with acute organ dysfunction Severe sepsis acute organ dysfunction type: acute renal failure Acute renal failure type: unspecified Severe sepsis shock status: without septic shock Qualified Code(s): A41.9 - Sepsis, unspecified organism; R65.20 - Severe sepsis without septic shock; N17.9 - Acute kidney failure, unspecified (3) Bladder distention Current Visit: Yes Status: Acute Code(s): N32.89 - OTHER SPECIFIED DISORDERS OF BLADDER (4) Recurrent falls Current Visit: Yes Status: Acute Code(s): R29.6 - REPEATED FALLS (5) Diabetes mellitus Current Visit: Yes Status: Acute Code(s): E11.9 - TYPE 2 DIABETES MELLITUS WITHOUT COMPLICATIONS (6) CHERIE (acute kidney injury) Current Visit: Yes Status: Acute Code(s): N17.9 - ACUTE KIDNEY FAILURE, UNSPECIFIED (7) BPH (benign prostatic hyperplasia) Current Visit: Yes Status: Acute Code(s): N40.0 - BENIGN PROSTATIC HYPERPLASIA WITHOUT LOWER URINRY TRACT SYMP (8) HTN (hypertension) Current Visit: Yes Status: Acute Code(s): I10 - ESSENTIAL (PRIMARY) HYPERTENSION (9) GERD (gastroesophageal reflux disease) Current Visit: Yes Status: Acute Code(s): K21.9 - GASTRO-ESOPHAGEAL REFLUX DISEASE WITHOUT ESOPHAGITIS (10) Hyperkalemia Current Visit: No Status: Acute Code(s): E87.5 - HYPERKALEMIA
[2024-10-19 05:14] LABS: Carbon Dioxide 14.0 mmol/L (22-30)
[2024-10-19] MEDS: POTASSIUM CHLORIDE 20 mEq IN WATER 100ML 20 MEQ/100 ML BAG IV SCH (05:36)
[2024-10-19] MEDS: K-LYTE PO ONE (06:01)
[2024-10-19 07:17] LABS: Slide Review 1 YES
[2024-10-19] MEDS: Lantus Insulin SQ SCH (08:02)
[2024-10-19] MEDS: Neutra-Phos Packet PO ONE ×3 (08:44→20:18)
[2024-10-19] MEDS: ENOXAPARIN SODIUM SQ SCH (09:59)
[2024-10-19] MEDS: D5W/0.45NS W/ 20mEq KCl 1000 ML 1,000 ML IV SCH (10:42)
[2024-10-19 13:17] LABS: Calcium 8.8 mg/dL (8.4-10.2); Creatinine 1 1.07 mg/dL (0.66-1.25); EST GLOMERULAR FILTRATION RATE 74.7 ML/MIN; Glucose 287.0 mg/dL (74-106); Potassium 5.3 mmol/L (3.5-5.1)
[2024-10-19 13:25] LABS: Carbon Dioxide 10.0 mmol/L (22-30)
[2024-10-19 14:48] LABS: A-aADO2 21; ABG HEMOGLOBIN 12.6; ABG POTASSIUM 4.3 (3.5-5.1); ARTERIAL BLD GAS O2 SATURATION 99.8 % (95-100); ARTERIAL BLOOD GAS BASE EXCESS -15.6 (-2.0-2.0); ARTERIAL BLOOD GAS FIO2 21 %; ARTERIAL BLOOD GAS PCO2 21 mmHg (35-45); ARTERIAL BLOOD GAS PO2 102 mmHg (75-100); ARTERIAL BLOOD GAS TEMPERATURE 37.0 C; HCO3- 9.4 (22-28); HGB O2 SAT 98.0 g/dF (94-100); Methhemoglobin 0.6 % (1.4-1.5); paO2 pAO1 0.83
[2024-10-19 14:49] LABS: ABG SITE LEFT BRACHIAL
[2024-10-19 16:45] LABS: Calcium 8.8 mg/dL (8.4-10.2); Creatinine 1 1.11 mg/dL (0.66-1.25); EST GLOMERULAR FILTRATION RATE 71.4 ML/MIN; Glucose 266.0 mg/dL (74-106)
[2024-10-19 17:03] LABS: Carbon Dioxide 11.0 mmol/L (22-30); Potassium 3.9 mmol/L (3.5-5.1)
[2024-10-19 20:33] LABS: Calcium 8.8 mg/dL (8.4-10.2); Carbon Dioxide 17.0 mmol/L (22-30); Creatinine 1 0.91 mg/dL (0.66-1.25); EST GLOMERULAR FILTRATION RATE 90.7 ML/MIN; Glucose 141.0 mg/dL (74-106); Potassium 3.4 mmol/L (3.5-5.1)
[2024-10-19] MEDS: D50W 50 ml Abboject IV PRN (22:06)
[2024-10-20 00:47] LABS: Calcium 8.6 mg/dL (8.4-10.2); Creatinine 1 0.75 mg/dL (0.66-1.25); EST GLOMERULAR FILTRATION RATE 97.1 ML/MIN; Glucose 135.0 mg/dL (74-106); Potassium 3.5 mmol/L (3.5-5.1)
[2024-10-20 01:08] LABS: Carbon Dioxide 16.0 mmol/L (22-30)
[2024-10-20] MEDS: Klor Con PO ONE (01:20)
[2024-10-20 04:33] LABS: BASOPHIL % 0.7 % (0.2-1.2); Basophil (Absolute #) 0.09 x10^3/uL (0.01-0.08); Eosinophil (Absolute #) 0.28 x10^3/uL (0.04-0.54); Hematocrit 38.4 % (40.1-51.0); Hemoglobin 11.7 g/dL (13.7-17.5); IMMATURE GRAN # 0.06 x10^3u/L (0.001-0.031); IMMATURE GRAN % 0.5 % (0.001-0.429); Lymphocyte (Absolute #) 1.84 x10^3/uL (1.32-3.57); Mean Corpuscular Hemoglobin 25.8 pg (25.7-32.2); Mean Corpuscular Hgb Concent. 30.5 g/dL (32.3-36.5); Monocyte (Absolute #) 1.22 x10^3/uL (0.30-0.82); NUCLEATED RBC # 0.00 x10^3u/L (0.00-0.012); NUCLEATED RBC % 0.0 % (0.00-0.2); Platelet Count 242 x10^3/uL (163-337); Red Blood Count 4.54 x10^6/uL (4.63-6.08); White Blood Count 13.3 x10^3/uL (4.23-9.07)
[2024-10-20 04:57] LABS: Calcium 8.6 mg/dL (8.4-10.2); Carbon Dioxide 19.0 mmol/L (22-30); Creatinine 1 0.7 mg/dL (0.66-1.25); EST GLOMERULAR FILTRATION RATE 99.1 ML/MIN; Glucose 90.0 mg/dL (74-106); Potassium 4.3 mmol/L (3.5-5.1); SGOT/AST 34.0 U/L (17-59); SGPT/ALT 29.0 U/L (0-50); Total Protein 5.2 g/dL (6.3-8.2)
--- NOTE | 2024-10-20 05:37 | PCM.NOTE ---
Date and Time: 10/20/24 0536 Subjective Assessment: is a 69 year old male with a pmhx of HLD, HTN, GERD, and DMII who presented to ED 10/18/24 with complaints of weakness, nausea, and vomiting since yesterday. He reports falling out of bed last Tuesday and has recently been having an unsteady gait which prompted him to seek medical attention at [facility] where he was recently admitted and discharged yesterday. He is a poor historian regarding his medical regimen, stating he was recently hospitalized at [facility] [place] [facility] for a stroke workup but is unclear about the outcome. He reports that he was instructed not to take his insulin and has not taken any since last Tuesday. We will obtain these records. A home health aide who evaluated him earlier today found him clinically unfit to remain alone at home and noted severe hyperglycemia, prompting EMS activation. On arrival, the patient also endorsed low back pain following his recent fall. Upon arrival to ED patient was tachycardic though otherwise hemodynamically stable. Lab findings remarkable for WBC , serum sodium 147 , potassium 5.2 , chloride 115 , BUN 35, and creatinine 1.49. Glucose was critically high at 492 on admission, later trending down to 347 mg/dL after intervention. Serum bicarbonate was severely depressed (<5 mmol/L) with an anion gap metabolic acidosis. Arterial blood gases showed severe metabolic acidosis with partial respiratory compensation. Lactic acid was elevated at 3.5 on admission, later improving to 2.2. Urine studies were notable for glucosuria >1000 and ketones >160, confirming ketoacidosis. Magnesium was elevated at 2.9. Respiratory viral panel was negative, reducing concern for viral trigger. Imaging revealed multiple acute and chronic findings. CT head demonstrated non-acute senile changes without acute intracranial process, reducing immediate concern for traumatic bleed in the context of falls and possible anticoagulation. CT abdomen/pelvis showed a markedly distended urinary bladder raising concern for urinary outlet obstruction versus neurogenic bladder, with chronic findings of enlarged prostate, chronic diverticulosis, non-obstructive left renal calculi, cholelithiasis, fatty liver, and generalized arteriosclerotic disease. Chest X- ray revealed chronic cardiopulmonary changes without acute process. Patient started on insulin drip, given sodium bicarb 50meq, IVF bolus of 2L, Zosyn, proventil, and calcium chloride. Admitted for DKA. 10/19/24: Met with patient bedside. Patient reports feeling significantly better compared to admission. Denies ongoing nausea, vomiting, abdominal pain, or shortness of breath. States energy has improved and appetite is returning. No chest pain, palpitations, or dizziness. Patient aware insulin drip was previously stopped due to hypokalemia, which has since resolved. Expresses relief that blood sugars are under better control. Denies fever,cough, abdominal pain, HENDERSON, dizziness, N/V/D. 10/20/24: Patient seen at bedside. Reports overall improvement since admission with resolution of nausea and abdominal discomfort. Endorses continued generalized weakness and fatigue but is tolerating oral intake well without difficulty. Denies chest pain, shortness of breath, or abdominal pain. Patient is agreeable to [facility] a [facility] for [facility] once medically stable; authorization process is pending. - Review of Systems Constitutional: Weakness Eyes: No Symptoms Ears, Nose, & Throat: No Symptoms Respiratory: No Symptoms Cardiac: No Symptoms Abdominal/Gastrointestinal: No Symptoms Genitourinary Symptoms: No Symptoms Musculoskeletal: No Symptoms Skin: No Symptoms Neurological: No Symptoms Psychological: No Symptoms Endocrine: No Symptoms Hematologic/Lymphatic: No Symptoms Immunological/Allergic: No Symptoms Objective Exam General Appearance: no apparent distress Neurologic Exam: alert, oriented x 3, cooperative Skin Exam: normal color Eye Exam: PERRL Ears, Nose, Throat Exam: normal ENT inspection Neck Exam: normal inspection Respiratory Exam: normal breath sounds, lungs clear Cardiovascular Exam: regular rate/rhythm, normal heart sounds Gastrointestinal/Abdomen Exam: soft, normal bowel sounds Extremity Exam: normal inspection Back Exam: normal inspection Male Genitalia Exam: deferred Rectal Exam: deferred Objective Data Vital Signs: Vital Signs - 24 hr Temp Pulse Resp BP Pulse Ox 10/20/24 05:00 74 19 156/79 96 10/20/24 04:00 97.4 F 73 18 144/79 96 10/20/24 03:00 78 16 144/71 96 10/20/24 02:01 76 17 152/73 97 10/20/24 01:00 82 17 144/70 97 10/20/24 00:01 80 10/20/24 00:00 97.2 F 80 23 140/75 97 10/19/24 23:00 76 16 132/73 97 10/19/24 22:00 80 25 H 128/66 97 10/19/24 21:00 78 17 130/60 97 10/19/24 20:00 97.1 F 79 22 126/59 97 10/19/24 19:50 97 10/19/24 19:40 82 17 97 10/19/24 19:01 78 21 120/60 97 10/19/24 18:00 82 21 119/56 97 10/19/24 17:00 85 18 120/58 98 10/19/24 16:20 84 10/19/24 16:00 98.1 F 80 15 124/57 98 10/19/24 15:00 84 18 120/58 96 10/19/24 14:00 90 18 123/52 97 10/19/24 13:00 89 31 H 129/54 97 10/19/24 12:45 88 10/19/24 12:00 88 13 129/57 98 10/19/24 11:00 81 20 139/53 98 10/19/24 10:00 86 25 H 117/61 98 10/19/24 09:00 82 19 108/59 98 10/19/24 08:00 84 18 122/58 98 10/19/24 07:00 97.4 F 85 19 118/53 98 10/19/24 06:42 85 20 99 10/19/24 06:00 85 23 117/55 99 Pain Assessment - Last Documented Pain Intensity 0 Intake and Output: Intake & Output 10/17/24 10/18/24 10/19/24 10/20/24 11:59 11:59 11:59 11:59 Intake Total 3250 4416 Output Total 4505 965 Balance -1255 3451 Weight 70.4 kg 66.6 kg 66.6 kg Lab Results: Lab Results-Last 24 Hours 10/19/24 10/19/24 10/19/24 Range/Units 04:47 04:47 06:05 WBC (4.23-9.07) x10^3/uL RBC (4.63-6.08) x10^6/uL Hgb (13.7-17.5) g/dL Hct (40.1-51.0) % MCV (79.0-92.2) fL MCH (25.7-32.2) pg MCHC (32.3-36.5) g/dL RDW (11.6-14.4) % Plt Count (163-337) x10^3/uL MPV (9.4-12.4) fL Gran % (34.0-67.9) % Immature Gran % (Auto) (0.001-0.429) % Nucleat RBC Rel Count (0.00-0.2) % Eos # (Auto) (0.04-0.54) x10^3/uL Immature Gran # (Auto) (0.001-0.031) x10^3u/L Absolute Lymphs (auto) (1.32-3.57) x10^3/uL Absolute Monos (auto) (0.30-0.82) x10^3/uL Absolute Nucleated RBC (0.00-0.012) x10^3u/L Lymphocytes % (21.8-53.1) % Monocytes % (5.3-12.2) % Eosinophils % (0.8-7.0) % Basophils % (0.2-1.2) % Absolute Granulocytes (1.78-5.38) x10^3/uL Basophils # (0.01-0.08) x10^3/uL Puncture Site pCO2 (35-45) mmHg pO2 (75-100) mmHg Base Excess (-2.0-2.0) O2 Saturation (94-100) g/dF ABG pH (7.35-7.45) ABG HCO3 (22-28) ABG O2 Sat (Measured) (95-100) % Wesley Test A-a Gradient a/A Ratio Hemoglobin Carboxyhemoglobin (0.0-6.9) % THgb Methemoglobin (1.4-1.5) % Temperature C POC O2 Flow Rate % Sodium (135-145) mmol/L Potassium (3.5-5.1) mmol/L Chloride (98-107) mmol/L Carbon Dioxide (22-30) mmol/L Anion Gap (5-15) MEQ/L BUN (9-20) mg/dL Creatinine (0.66-1.25) mg/dL Estimated GFR ML/MIN Glucose (74-106) mg/dL POC Glucometer 108 H (74 to 106) mg/dL Calcium (8.4-10.2) mg/dL Phosphorus (2.5-4.5) mg/dL Total Bilirubin (0.2-1.3) mg/dL AST (17-59) U/L ALT (0-50) U/L Alkaline Phosphatase (38-126) U/L Troponin I 0.062 H* (0.000-0.033) ng/mL Serum Total Protein (6.3-8.2) g/dL Albumin (3.5-5.0) g/dL Slides for Path Review YES 10/19/24 10/19/24 10/19/24 Range/Units 07:03 07:17 09:33 WBC (4.23-9.07) x10^3/uL RBC (4.63-6.08) x10^6/uL Hgb (13.7-17.5) g/dL Hct (40.1-51.0) % MCV (79.0-92.2) fL MCH (25.7-32.2) pg MCHC (32.3-36.5) g/dL RDW (11.6-14.4) % Plt Count (163-337) x10^3/uL MPV (9.4-12.4) fL Gran % (34.0-67.9) % Immature Gran % (Auto) (0.001-0.429) % Nucleat RBC Rel Count (0.00-0.2) % Eos # (Auto) (0.04-0.54) x10^3/uL Immature Gran # (Auto) (0.001-0.031) x10^3u/L Absolute Lymphs (auto) (1.32-3.57) x10^3/uL Absolute Monos (auto) (0.30-0.82) x10^3/uL Absolute Nucleated RBC (0.00-0.012) x10^3u/L Lymphocytes % (21.8-53.1) % Monocytes % (5.3-12.2) % Eosinophils % (0.8-7.0) % Basophils % (0.2-1.2) % Absolute Granulocytes (1.78-5.38) x10^3/uL Basophils # (0.01-0.08) x10^3/uL Puncture Site pCO2 (35-45) mmHg pO2 (75-100) mmHg Base Excess (-2.0-2.0) O2 Saturation (94-100) g/dF ABG pH (7.35-7.45) ABG HCO3 (22-28) ABG O2 Sat (Measured) (95-100) % Wesley Test A-a Gradient a/A Ratio Hemoglobin Carboxyhemoglobin (0.0-6.9) % THgb Methemoglobin (1.4-1.5) % Temperature C POC O2 Flow Rate % Sodium (135-145) mmol/L Potassium (3.5-5.1) mmol/L Chloride (98-107) mmol/L Carbon Dioxide (22-30) mmol/L Anion Gap (5-15) MEQ/L BUN (9-20) mg/dL Creatinine (0.66-1.25) mg/dL Estimated GFR ML/MIN Glucose (74-106) mg/dL POC Glucometer 172 H 168 H 235 H (74 to 106) mg/dL Calcium (8.4-10.2) mg/dL Phosphorus (2.5-4.5) mg/dL Total Bilirubin (0.2-1.3) mg/dL AST (17-59) U/L ALT (0-50) U/L Alkaline Phosphatase (38-126) U/L Troponin I (0.000-0.033) ng/mL Serum Total Protein (6.3-8.2) g/dL Albumin (3.5-5.0) g/dL Slides for Path Review 10/19/24 10/19/24 10/19/24 Range/Units 09:57 11:06 11:37 WBC (4.23-9.07) x10^3/uL RBC (4.63-6.08) x10^6/uL Hgb (13.7-17.5) g/dL Hct (40.1-51.0) % MCV (79.0-92.2) fL MCH (25.7-32.2) pg MCHC (32.3-36.5) g/dL RDW (11.6-14.4) % Plt Count (163-337) x10^3/uL MPV (9.4-12.4) fL Gran % (34.0-67.9) % Immature Gran % (Auto) (0.001-0.429) % Nucleat RBC Rel Count (0.00-0.2) % Eos # (Auto) (0.04-0.54) x10^3/uL Immature Gran # (Auto) (0.001-0.031) x10^3u/L Absolute Lymphs (auto) (1.32-3.57) x10^3/uL Absolute Monos (auto) (0.30-0.82) x10^3/uL Absolute Nucleated RBC (0.00-0.012) x10^3u/L Lymphocytes % (21.8-53.1) % Monocytes % (5.3-12.2) % Eosinophils % (0.8-7.0) % Basophils % (0.2-1.2) % Absolute Granulocytes (1.78-5.38) x10^3/uL Basophils # (0.01-0.08) x10^3/uL Puncture Site pCO2 (35-45) mmHg pO2 (75-100) mmHg Base Excess (-2.0-2.0) O2 Saturation (94-100) g/dF ABG pH (7.35-7.45) ABG HCO3 (22-28) ABG O2 Sat (Measured) (95-100) % Wesley Test A-a Gradient a/A Ratio Hemoglobin Carboxyhemoglobin (0.0-6.9) % THgb Methemoglobin (1.4-1.5) % Temperature C POC O2 Flow Rate % Sodium (135-145) mmol/L Potassium 5.3 H D (3.5-5.1) mmol/L Chloride (98-107) mmol/L Carbon Dioxide (22-30) mmol/L Anion Gap (5-15) MEQ/L BUN (9-20) mg/dL Creatinine (0.66-1.25) mg/dL Estimated GFR ML/MIN Glucose (74-106) mg/dL POC Glucometer 236 H 245 H (74 to 106) mg/dL Calcium (8.4-10.2) mg/dL Phosphorus (2.5-4.5) mg/dL Total Bilirubin (0.2-1.3) mg/dL AST (17-59) U/L ALT (0-50) U/L Alkaline Phosphatase (38-126) U/L Troponin I (0.000-0.033) ng/mL Serum Total Protein (6.3-8.2) g/dL Albumin (3.5-5.0) g/dL Slides for Path Review 10/19/24 10/19/24 10/19/24 Range/Units 11:49 11:52 13:36 WBC (4.23-9.07) x10^3/uL RBC (4.63-6.08) x10^6/uL Hgb (13.7-17.5) g/dL Hct (40.1-51.0) % MCV (79.0-92.2) fL MCH (25.7-32.2) pg MCHC (32.3-36.5) g/dL RDW (11.6-14.4) % Plt Count (163-337) x10^3/uL MPV (9.4-12.4) fL Gran % (34.0-67.9) % Immature Gran % (Auto) (0.001-0.429) % Nucleat RBC Rel Count (0.00-0.2) % Eos # (Auto) (0.04-0.54) x10^3/uL Immature Gran # (Auto) (0.001-0.031) x10^3u/L Absolute Lymphs (auto) (1.32-3.57) x10^3/uL Absolute Monos (auto) (0.30-0.82) x10^3/uL Absolute Nucleated RBC (0.00-0.012) x10^3u/L Lymphocytes % (21.8-53.1) % Monocytes % (5.3-12.2) % Eosinophils % (0.8-7.0) % Basophils % (0.2-1.2) % Absolute Granulocytes (1.78-5.38) x10^3/uL Basophils # (0.01-0.08) x10^3/uL Puncture Site pCO2 (35-45) mmHg pO2 (75-100) mmHg Base Excess (-2.0-2.0) O2 Saturation (94-100) g/dF ABG pH (7.35-7.45) ABG HCO3 (22-28) ABG O2 Sat (Measured) (95-100) % Wesley Test A-a Gradient a/A Ratio Hemoglobin Carboxyhemoglobin (0.0-6.9) % THgb Methemoglobin (1.4-1.5) % Temperature C POC O2 Flow Rate % Sodium 144 (135-145) mmol/L Potassium 5.3 H (3.5-5.1) mmol/L Chloride 118 H (98-107) mmol/L Carbon Dioxide 10 L* (22-30) mmol/L Anion Gap 20.1 H (5-15) MEQ/L BUN 25 H (9-20) mg/dL Creatinine 1.07 (0.66-1.25) mg/dL Estimated GFR 74.7 ML/MIN Glucose 287 H (74-106) mg/dL POC Glucometer 275 H 301 H (74 to 106) mg/dL Calcium 8.8 (8.4-10.2) mg/dL Phosphorus 2.2 L (2.5-4.5) mg/dL Total Bilirubin (0.2-1.3) mg/dL AST (17-59) U/L ALT (0-50) U/L Alkaline Phosphatase (38-126) U/L Troponin I (0.000-0.033) ng/mL Serum Total Protein (6.3-8.2) g/dL Albumin (3.5-5.0) g/dL Slides for Path Review 10/19/24 10/19/24 10/19/24 Range/Units 14:07 14:40 15:35 WBC (4.23-9.07) x10^3/uL RBC (4.63-6.08) x10^6/uL Hgb (13.7-17.5) g/dL Hct (40.1-51.0) % MCV (79.0-92.2) fL MCH (25.7-32.2) pg MCHC (32.3-36.5) g/dL RDW (11.6-14.4) % Plt Count (163-337) x10^3/uL MPV (9.4-12.4) fL Gran % (34.0-67.9) % Immature Gran % (Auto) (0.001-0.429) % Nucleat RBC Rel Count (0.00-0.2) % Eos # (Auto) (0.04-0.54) x10^3/uL Immature Gran # (Auto) (0.001-0.031) x10^3u/L Absolute Lymphs (auto) (1.32-3.57) x10^3/uL Absolute Monos (auto) (0.30-0.82) x10^3/uL Absolute Nucleated RBC (0.00-0.012) x10^3u/L Lymphocytes % (21.8-53.1) % Monocytes % (5.3-12.2) % Eosinophils % (0.8-7.0) % Basophils % (0.2-1.2) % Absolute Granulocytes (1.78-5.38) x10^3/uL Basophils # (0.01-0.08) x10^3/uL Puncture Site LEFT BRACHIAL pCO2 21 L (35-45) mmHg pO2 102 H (75-100) mmHg Base Excess -15.6 L (-2.0-2.0) O2 Saturation 98.0 (94-100) g/dF ABG pH 7.26 L (7.35-7.45) ABG HCO3 9.4 L* (22-28) ABG O2 Sat (Measured) 99.8 (95-100) % Wesley Test NOT APPLICABLE A-a Gradient 21 a/A Ratio 0.83 Hemoglobin 12.6 Carboxyhemoglobin 1.2 (0.0-6.9) % THgb Methemoglobin 0.6 L (1.4-1.5) % Temperature 37.0 C POC O2 Flow Rate 21 % Sodium (135-145) mmol/L Potassium 4.3 (3.5-5.1) mmol/L Chloride (98-107) mmol/L Carbon Dioxide (22-30) mmol/L Anion Gap (5-15) MEQ/L BUN (9-20) mg/dL Creatinine (0.66-1.25) mg/dL Estimated GFR ML/MIN Glucose (74-106) mg/dL POC Glucometer 310 H 262 H (74 to 106) mg/dL Calcium (8.4-10.2) mg/dL Phosphorus (2.5-4.5) mg/dL Total Bilirubin (0.2-1.3) mg/dL AST (17-59) U/L ALT (0-50) U/L Alkaline Phosphatase (38-126) U/L Troponin I (0.000-0.033) ng/mL Serum Total Protein (6.3-8.2) g/dL Albumin (3.5-5.0) g/dL Slides for Path Review 10/19/24 10/19/24 10/19/24 Range/Units 16:09 16:24 16:56 WBC (4.23-9.07) x10^3/uL RBC (4.63-6.08) x10^6/uL Hgb (13.7-17.5) g/dL Hct (40.1-51.0) % MCV (79.0-92.2) fL MCH (25.7-32.2) pg MCHC (32.3-36.5) g/dL RDW (11.6-14.4) % Plt Count (163-337) x10^3/uL MPV (9.4-12.4) fL Gran % (34.0-67.9) % Immature Gran % (Auto) (0.001-0.429) % Nucleat RBC Rel Count (0.00-0.2) % Eos # (Auto) (0.04-0.54) x10^3/uL Immature Gran # (Auto) (0.001-0.031) x10^3u/L Absolute Lymphs (auto) (1.32-3.57) x10^3/uL Absolute Monos (auto) (0.30-0.82) x10^3/uL Absolute Nucleated RBC (0.00-0.012) x10^3u/L Lymphocytes % (21.8-53.1) % Monocytes % (5.3-12.2) % Eosinophils % (0.8-7.0) % Basophils % (0.2-1.2) % Absolute Granulocytes (1.78-5.38) x10^3/uL Basophils # (0.01-0.08) x10^3/uL Puncture Site pCO2 (35-45) mmHg pO2 (75-100) mmHg Base Excess (-2.0-2.0) O2 Saturation (94-100) g/dF ABG pH (7.35-7.45) ABG HCO3 (22-28) ABG O2 Sat (Measured) (95-100) % Wesley Test A-a Gradient a/A Ratio Hemoglobin Carboxyhemoglobin (0.0-6.9) % THgb Methemoglobin (1.4-1.5) % Temperature C POC O2 Flow Rate % Sodium 146 H (135-145) mmol/L Potassium 3.9 D (3.5-5.1) mmol/L Chloride 118 H (98-107) mmol/L Carbon Dioxide 11 L* (22-30) mmol/L Anion Gap 20.5 H (5-15) MEQ/L BUN 25 H (9-20) mg/dL Creatinine 1.11 (0.66-1.25) mg/dL Estimated GFR 71.4 ML/MIN Glucose 266 H (74-106) mg/dL POC Glucometer 269 H 238 H (74 to 106) mg/dL Calcium 8.8 (8.4-10.2) mg/dL Phosphorus 1.6 L (2.5-4.5) mg/dL Total Bilirubin (0.2-1.3) mg/dL AST (17-59) U/L ALT (0-50) U/L Alkaline Phosphatase (38-126) U/L Troponin I (0.000-0.033) ng/mL Serum Total Protein (6.3-8.2) g/dL Albumin (3.5-5.0) g/dL Slides for Path Review 10/19/24 10/19/24 10/19/24 Range/Units 18:19 19:22 20:06 WBC (4.23-9.07) x10^3/uL RBC (4.63-6.08) x10^6/uL Hgb (13.7-17.5) g/dL Hct (40.1-51.0) % MCV (79.0-92.2) fL MCH (25.7-32.2) pg MCHC (32.3-36.5) g/dL RDW (11.6-14.4) % Plt Count (163-337) x10^3/uL MPV (9.4-12.4) fL Gran % (34.0-67.9) % Immature Gran % (Auto) (0.001-0.429) % Nucleat RBC Rel Count (0.00-0.2) % Eos # (Auto) (0.04-0.54) x10^3/uL Immature Gran # (Auto) (0.001-0.031) x10^3u/L Absolute Lymphs (auto) (1.32-3.57) x10^3/uL Absolute Monos (auto) (0.30-0.82) x10^3/uL Absolute Nucleated RBC (0.00-0.012) x10^3u/L Lymphocytes % (21.8-53.1) % Monocytes % (5.3-12.2) % Eosinophils % (0.8-7.0) % Basophils % (0.2-1.2) % Absolute Granulocytes (1.78-5.38) x10^3/uL Basophils # (0.01-0.08) x10^3/uL Puncture Site pCO2 (35-45) mmHg pO2 (75-100) mmHg Base Excess (-2.0-2.0) O2 Saturation (94-100) g/dF ABG pH (7.35-7.45) ABG HCO3 (22-28) ABG O2 Sat (Measured) (95-100) % Wesley Test A-a Gradient a/A Ratio Hemoglobin Carboxyhemoglobin (0.0-6.9) % THgb Methemoglobin (1.4-1.5) % Temperature C POC O2 Flow Rate % Sodium (135-145) mmol/L Potassium (3.5-5.1) mmol/L Chloride (98-107) mmol/L Carbon Dioxide (22-30) mmol/L Anion Gap (5-15) MEQ/L BUN (9-20) mg/dL Creatinine (0.66-1.25) mg/dL Estimated GFR ML/MIN Glucose (74-106) mg/dL POC Glucometer 190 H 157 H 151 H (74 to 106) mg/dL Calcium (8.4-10.2) mg/dL Phosphorus (2.5-4.5) mg/dL Total Bilirubin (0.2-1.3) mg/dL AST (17-59) U/L ALT (0-50) U/L Alkaline Phosphatase (38-126) U/L Troponin I (0.000-0.033) ng/mL Serum Total Protein (6.3-8.2) g/dL Albumin (3.5-5.0) g/dL Slides for Path Review 10/19/24 10/19/24 10/19/24 Range/Units 20:15 21:04 21:58 WBC (4.23-9.07) x10^3/uL RBC (4.63-6.08) x10^6/uL Hgb (13.7-17.5) g/dL Hct (40.1-51.0) % MCV (79.0-92.2) fL MCH (25.7-32.2) pg MCHC (32.3-36.5) g/dL RDW (11.6-14.4) % Plt Count (163-337) x10^3/uL MPV (9.4-12.4) fL Gran % (34.0-67.9) % Immature Gran % (Auto) (0.001-0.429) % Nucleat RBC Rel Count (0.00-0.2) % Eos # (Auto) (0.04-0.54) x10^3/uL Immature Gran # (Auto) (0.001-0.031) x10^3u/L Absolute Lymphs (auto) (1.32-3.57) x10^3/uL Absolute Monos (auto) (0.30-0.82) x10^3/uL Absolute Nucleated RBC (0.00-0.012) x10^3u/L Lymphocytes % (21.8-53.1) % Monocytes % (5.3-12.2) % Eosinophils % (0.8-7.0) % Basophils % (0.2-1.2) % Absolute Granulocytes (1.78-5.38) x10^3/uL Basophils # (0.01-0.08) x10^3/uL Puncture Site pCO2 (35-45) mmHg pO2 (75-100) mmHg Base Excess (-2.0-2.0) O2 Saturation (94-100) g/dF ABG pH (7.35-7.45) ABG HCO3 (22-28) ABG O2 Sat (Measured) (95-100) % Wesley Test A-a Gradient a/A Ratio Hemoglobin Carboxyhemoglobin (0.0-6.9) % THgb Methemoglobin (1.4-1.5) % Temperature C POC O2 Flow Rate % Sodium 147 H (135-145) mmol/L Potassium 3.4 L (3.5-5.1) mmol/L Chloride 120 H (98-107) mmol/L Carbon Dioxide 17 L (22-30) mmol/L Anion Gap 12.5 (5-15) MEQ/L BUN 21 H (9-20) mg/dL Creatinine 0.91 (0.66-1.25) mg/dL Estimated GFR 90.7 ML/MIN Glucose 141 H (74-106) mg/dL POC Glucometer 105 81 (74 to 106) mg/dL Calcium 8.8 (8.4-10.2) mg/dL Phosphorus 1.3 L (2.5-4.5) mg/dL Total Bilirubin (0.2-1.3) mg/dL AST (17-59) U/L ALT (0-50) U/L Alkaline Phosphatase (38-126) U/L Troponin I (0.000-0.033) ng/mL Serum Total Protein (6.3-8.2) g/dL Albumin (3.5-5.0) g/dL Slides for Path Review 10/19/24 10/19/24 10/19/24 Range/Units 22:32 23:07 23:38 WBC (4.23-9.07) x10^3/uL RBC (4.63-6.08) x10^6/uL Hgb (13.7-17.5) g/dL Hct (40.1-51.0) % MCV (79.0-92.2) fL MCH (25.7-32.2) pg MCHC (32.3-36.5) g/dL RDW (11.6-14.4) % Plt Count (163-337) x10^3/uL MPV (9.4-12.4) fL Gran % (34.0-67.9) % Immature Gran % (Auto) (0.001-0.429) % Nucleat RBC Rel Count (0.00-0.2) % Eos # (Auto) (0.04-0.54) x10^3/uL Immature Gran # (Auto) (0.001-0.031) x10^3u/L Absolute Lymphs (auto) (1.32-3.57) x10^3/uL Absolute Monos (auto) (0.30-0.82) x10^3/uL Absolute Nucleated RBC (0.00-0.012) x10^3u/L Lymphocytes % (21.8-53.1) % Monocytes % (5.3-12.2) % Eosinophils % (0.8-7.0) % Basophils % (0.2-1.2) % Absolute Granulocytes (1.78-5.38) x10^3/uL Basophils # (0.01-0.08) x10^3/uL Puncture Site pCO2 (35-45) mmHg pO2 (75-100) mmHg Base Excess (-2.0-2.0) O2 Saturation (94-100) g/dF ABG pH (7.35-7.45) ABG HCO3 (22-28) ABG O2 Sat (Measured) (95-100) % Wesley Test A-a Gradient a/A Ratio Hemoglobin Carboxyhemoglobin (0.0-6.9) % THgb Methemoglobin (1.4-1.5) % Temperature C POC O2 Flow Rate % Sodium (135-145) mmol/L Potassium (3.5-5.1) mmol/L Chloride (98-107) mmol/L Carbon Dioxide (22-30) mmol/L Anion Gap (5-15) MEQ/L BUN (9-20) mg/dL Creatinine (0.66-1.25) mg/dL Estimated GFR ML/MIN Glucose (74-106) mg/dL POC Glucometer 116 H 88 118 H (74 to 106) mg/dL Calcium (8.4-10.2) mg/dL Phosphorus (2.5-4.5) mg/dL Total Bilirubin (0.2-1.3) mg/dL AST (17-59) U/L ALT (0-50) U/L Alkaline Phosphatase (38-126) U/L Troponin I (0.000-0.033) ng/mL Serum Total Protein (6.3-8.2) g/dL Albumin (3.5-5.0) g/dL Slides for Path Review 10/20/24 10/20/24 10/20/24 Range/Units 00:18 00:25 00:48 WBC (4.23-9.07) x10^3/uL RBC (4.63-6.08) x10^6/uL Hgb (13.7-17.5) g/dL Hct (40.1-51.0) % MCV (79.0-92.2) fL MCH (25.7-32.2) pg MCHC (32.3-36.5) g/dL RDW (11.6-14.4) % Plt Count (163-337) x10^3/uL MPV (9.4-12.4) fL Gran % (34.0-67.9) % Immature Gran % (Auto) (0.001-0.429) % Nucleat RBC Rel Count (0.00-0.2) % Eos # (Auto) (0.04-0.54) x10^3/uL Immature Gran # (Auto) (0.001-0.031) x10^3u/L Absolute Lymphs (auto) (1.32-3.57) x10^3/uL Absolute Monos (auto) (0.30-0.82) x10^3/uL Absolute Nucleated RBC (0.00-0.012) x10^3u/L Lymphocytes % (21.8-53.1) % Monocytes % (5.3-12.2) % Eosinophils % (0.8-7.0) % Basophils % (0.2-1.2) % Absolute Granulocytes (1.78-5.38) x10^3/uL Basophils # (0.01-0.08) x10^3/uL Puncture Site pCO2 (35-45) mmHg pO2 (75-100) mmHg Base Excess (-2.0-2.0) O2 Saturation (94-100) g/dF ABG pH (7.35-7.45) ABG HCO3 (22-28) ABG O2 Sat (Measured) (95-100) % Wesley Test A-a Gradient a/A Ratio Hemoglobin Carboxyhemoglobin (0.0-6.9) % THgb Methemoglobin (1.4-1.5) % Temperature C POC O2 Flow Rate % Sodium 144 (135-145) mmol/L Potassium 3.5 (3.5-5.1) mmol/L Chloride 121 H (98-107) mmol/L Carbon Dioxide 16 L* (22-30) mmol/L Anion Gap 10.0 (5-15) MEQ/L BUN 17 (9-20) mg/dL Creatinine 0.75 (0.66-1.25) mg/dL Estimated GFR 97.1 ML/MIN Glucose 135 H (74-106) mg/dL POC Glucometer 81 117 H (74 to 106) mg/dL Calcium 8.6 (8.4-10.2) mg/dL Phosphorus 1.6 L (2.5-4.5) mg/dL Total Bilirubin (0.2-1.3) mg/dL AST (17-59) U/L ALT (0-50) U/L Alkaline Phosphatase (38-126) U/L Troponin I (0.000-0.033) ng/mL Serum Total Protein (6.3-8.2) g/dL Albumin (3.5-5.0) g/dL Slides for Path Review 10/20/24 10/20/24 10/20/24 Range/Units 01:18 01:50 03:03 WBC (4.23-9.07) x10^3/uL RBC (4.63-6.08) x10^6/uL Hgb (13.7-17.5) g/dL Hct (40.1-51.0) % MCV (79.0-92.2) fL MCH (25.7-32.2) pg MCHC (32.3-36.5) g/dL RDW (11.6-14.4) % Plt Count (163-337) x10^3/uL MPV (9.4-12.4) fL Gran % (34.0-67.9) % Immature Gran % (Auto) (0.001-0.429) % Nucleat RBC Rel Count (0.00-0.2) % Eos # (Auto) (0.04-0.54) x10^3/uL Immature Gran # (Auto) (0.001-0.031) x10^3u/L Absolute Lymphs (auto) (1.32-3.57) x10^3/uL Absolute Monos (auto) (0.30-0.82) x10^3/uL Absolute Nucleated RBC (0.00-0.012) x10^3u/L Lymphocytes % (21.8-53.1) % Monocytes % (5.3-12.2) % Eosinophils % (0.8-7.0) % Basophils % (0.2-1.2) % Absolute Granulocytes (1.78-5.38) x10^3/uL Basophils # (0.01-0.08) x10^3/uL Puncture Site pCO2 (35-45) mmHg pO2 (75-100) mmHg Base Excess (-2.0-2.0) O2 Saturation (94-100) g/dF ABG pH (7.35-7.45) ABG HCO3 (22-28) ABG O2 Sat (Measured) (95-100) % Wesley Test A-a Gradient a/A Ratio Hemoglobin Carboxyhemoglobin (0.0-6.9) % THgb Methemoglobin (1.4-1.5) % Temperature C POC O2 Flow Rate % Sodium (135-145) mmol/L Potassium (3.5-5.1) mmol/L Chloride (98-107) mmol/L Carbon Dioxide (22-30) mmol/L Anion Gap (5-15) MEQ/L BUN (9-20) mg/dL Creatinine (0.66-1.25) mg/dL Estimated GFR ML/MIN Glucose (74-106) mg/dL POC Glucometer 85 122 H 78 (74 to 106) mg/dL Calcium (8.4-10.2) mg/dL Phosphorus (2.5-4.5) mg/dL Total Bilirubin (0.2-1.3) mg/dL AST (17-59) U/L ALT (0-50) U/L Alkaline Phosphatase (38-126) U/L Troponin I (0.000-0.033) ng/mL Serum Total Protein (6.3-8.2) g/dL Albumin (3.5-5.0) g/dL Slides for Path Review 10/20/24 10/20/24 10/20/24 Range/Units 03:42 04:14 04:30 WBC 13.3 H (4.23-9.07) x10^3/uL RBC 4.54 L (4.63-6.08) x10^6/uL Hgb 11.7 L (13.7-17.5) g/dL Hct 38.4 L (40.1-51.0) % MCV 84.6 (79.0-92.2) fL MCH 25.8 (25.7-32.2) pg MCHC 30.5 L (32.3-36.5) g/dL RDW 17.9 H (11.6-14.4) % Plt Count 242 (163-337) x10^3/uL MPV 10.4 (9.4-12.4) fL Gran % 73.7 H (34.0-67.9) % Immature Gran % (Auto) 0.5 H (0.001-0.429) % Nucleat RBC Rel Count 0.0 (0.00-0.2) % Eos # (Auto) 0.28 (0.04-0.54) x10^3/uL Immature Gran # (Auto) 0.06 H (0.001-0.031) x10^3u/L Absolute Lymphs (auto) 1.84 (1.32-3.57) x10^3/uL Absolute Monos (auto) 1.22 H (0.30-0.82) x10^3/uL Absolute Nucleated RBC 0.00 (0.00-0.012) x10^3u/L Lymphocytes % 13.8 L (21.8-53.1) % Monocytes % 9.2 (5.3-12.2) % Eosinophils % 2.1 (0.8-7.0) % Basophils % 0.7 (0.2-1.2) % Absolute Granulocytes 9.82 H (1.78-5.38) x10^3/uL Basophils # 0.09 H (0.01-0.08) x10^3/uL Puncture Site pCO2 (35-45) mmHg pO2 (75-100) mmHg Base Excess (-2.0-2.0) O2 Saturation (94-100) g/dF ABG pH (7.35-7.45) ABG HCO3 (22-28) ABG O2 Sat (Measured) (95-100) % Wesley Test A-a Gradient a/A Ratio Hemoglobin Carboxyhemoglobin (0.0-6.9) % THgb Methemoglobin (1.4-1.5) % Temperature C POC O2 Flow Rate % Sodium (135-145) mmol/L Potassium (3.5-5.1) mmol/L Chloride (98-107) mmol/L Carbon Dioxide (22-30) mmol/L Anion Gap (5-15) MEQ/L BUN (9-20) mg/dL Creatinine (0.66-1.25) mg/dL Estimated GFR ML/MIN Glucose (74-106) mg/dL POC Glucometer 125 H 86 (74 to 106) mg/dL Calcium (8.4-10.2) mg/dL Phosphorus (2.5-4.5) mg/dL Total Bilirubin (0.2-1.3) mg/dL AST (17-59) U/L ALT (0-50) U/L Alkaline Phosphatase (38-126) U/L Troponin I (0.000-0.033) ng/mL Serum Total Protein (6.3-8.2) g/dL Albumin (3.5-5.0) g/dL Slides for Path Review 10/20/24 10/20/24 Range/Units 04:30 04:49 WBC (4.23-9.07) x10^3/uL RBC (4.63-6.08) x10^6/uL Hgb (13.7-17.5) g/dL Hct (40.1-51.0) % MCV (79.0-92.2) fL MCH (25.7-32.2) pg MCHC (32.3-36.5) g/dL RDW (11.6-14.4) % Plt Count (163-337) x10^3/uL MPV (9.4-12.4) fL Gran % (34.0-67.9) % Immature Gran % (Auto) (0.001-0.429) % Nucleat RBC Rel Count (0.00-0.2) % Eos # (Auto) (0.04-0.54) x10^3/uL Immature Gran # (Auto) (0.001-0.031) x10^3u/L Absolute Lymphs (auto) (1.32-3.57) x10^3/uL Absolute Monos (auto) (0.30-0.82) x10^3/uL Absolute Nucleated RBC (0.00-0.012) x10^3u/L Lymphocytes % (21.8-53.1) % Monocytes % (5.3-12.2) % Eosinophils % (0.8-7.0) % Basophils % (0.2-1.2) % Absolute Granulocytes (1.78-5.38) x10^3/uL Basophils # (0.01-0.08) x10^3/uL Puncture Site pCO2 (35-45) mmHg pO2 (75-100) mmHg Base Excess (-2.0-2.0) O2 Saturation (94-100) g/dF ABG pH (7.35-7.45) ABG HCO3 (22-28) ABG O2 Sat (Measured) (95-100) % Wesley Test A-a Gradient a/A Ratio Hemoglobin Carboxyhemoglobin (0.0-6.9) % THgb Methemoglobin (1.4-1.5) % Temperature C POC O2 Flow Rate % Sodium 143 (135-145) mmol/L Potassium 4.3 D (3.5-5.1) mmol/L Chloride 119 H (98-107) mmol/L Carbon Dioxide 19 L (22-30) mmol/L Anion Gap 9.3 (5-15) MEQ/L BUN 15 (9-20) mg/dL Creatinine 0.70 (0.66-1.25) mg/dL Estimated GFR 99.1 ML/MIN Glucose 90 (74-106) mg/dL POC Glucometer 134 H (74 to 106) mg/dL Calcium 8.6 (8.4-10.2) mg/dL Phosphorus 2.0 L (2.5-4.5) mg/dL Total Bilirubin 0.60 (0.2-1.3) mg/dL AST 34 (17-59) U/L ALT 29 (0-50) U/L Alkaline Phosphatase 68 (38-126) U/L Troponin I (0.000-0.033) ng/mL Serum Total Protein 5.2 L (6.3-8.2) g/dL Albumin 2.9 L (3.5-5.0) g/dL Slides for Path Review Radiology Exams: Radiology Procedures Category Date Time Status ABDOMEN AND PELVIS W/0 CONTRAS [CT] Stat Exams 10/18/24 11:51 Completed CHEST 1 VIEW (PORTABLE) Stat Exams 10/18/24 11:49 Completed HEAD WITHOUT CONTRAST [CT] Stat Exams 10/18/24 11:51 Completed Medications: Medications Generic Name Dose Route Start Last Admin Trade Name Freq PRN Reason Stop Dose Admin Acetaminophen 650 mg 10/18/24 17:11 Acetaminophen 325 Mg Tablet PO 11/17/24 17:10 Q4H PRN PRN PAIN, FEVER, HEADACHE Albuterol/Ipratropium 3 ml 10/18/24 17:11 Ipratropium/Albuterol Sulfate 3 Ml Ampul.Neb IH 11/17/24 18:59 Q6HRT PRN SHORTNESS OF BREATH/WHEEZING Dextrose 25 ml 10/19/24 22:03 10/20/24 04:21 Dextrose 50%-Water 50 Ml Abboject IV 11/18/24 22:02 25 ml PRN PRN Administration HYPOGLYCEMIA Enoxaparin Sodium 40 mg 10/19/24 10:00 10/19/24 09:59 Enoxaparin Sodium 40 Mg/0.4 Ml Syringe SQ 11/18/24 09:59 40 mg DAILY YANN Administration INSULIN REGULAR IN 0.9 % NACL 100 unit in 100 mls @ 7.04 mls/hr 10/18/24 12:52 10/20/24 04:17 Myxredlin 100 Unit/100 Ml Bag IV 11/17/24 12:51 0.01 unit/kg/hr .[id number] PRN 1 mls/hr HYPERGLYCEMIA Titration Protocol 0.1 UNIT/KG/HR Potassium Chloride/Dextrose/Sod Cl 1,000 mls @ 150 mls/hr 10/18/24 20:00 10/20/24 03:45 D5w/0.45ns W/ 20meq Kcl 1000 Ml IV 11/17/24 19:59 250 mls/hr .[id number] YANN Administration Ondansetron HCl 4 mg 10/18/24 17:11 Ondansetron Hcl 4 Mg/2 Ml Vial IV 11/17/24 17:10 Q6H PRN PRN NAUSEA/VOMITING Potassium Chloride 50 meq 10/20/24 01:15 10/20/24 01:20 Potassium Chloride Tab 10 Meq Tab PO 10/20/24 01:16 50 meq STAT ONE Administration Discontinued Medications Generic Name Dose Route Start Last Admin Trade Name Dru PRN Reason Stop Dose Admin Albuterol Sulfate 10 mg 10/18/24 12:53 10/18/24 13:10 Albuterol Sulfate 2.5 Mg/3 Ml Neb IH 10/18/24 12:54 10 mg STAT ONE Administration Albuterol Sulfate Confirm 10/18/24 13:00 Albuterol Sulfate 2.5 Mg/3 Ml Neb Administered 10/18/24 13:01 Dose 2.5 mg IH .STK-MED ONE Calcium Chloride Confirm 10/18/24 13:06 Calcium Chloride 100 Mg/Ml 10ml Inj. Administered 10/18/24 13:07 Dose 1,000 mg .ROUTE .STK-MED ONE Calcium Gluconate Confirm 10/18/24 13:01 Calcium Gluconate 1000 Mg/10 Ml Vial Administered 10/18/24 13:02 Dose 1,000 mg IV .STK-MED ONE Sodium Chloride Confirm 10/18/24 12:21 Sodium Chloride 0.9% 1000 Ml Administered 10/18/24 12:22 Dose 1,000 mls @ ud .ROUTE .STK-MED ONE Sodium Chloride 1,000 mls @ 999 mls/hr 10/18/24 12:25 10/18/24 13:55 Sodium Chloride 0.9% 1000 Ml IV 10/18/24 13:25 Infused .Q1H1M STA Infusion Piperacillin Sod/Tazobactam 100 mls @ 200 mls/hr 10/18/24 12:44 10/18/24 14:58 Sod 4.5 gm/ Sodium Chloride IV 10/18/24 13:13 Infused STAT STA Infusion Calcium Chloride 1,000 mg/ 110 mls @ 440 mls/hr 10/18/24 13:15 10/18/24 13:36 Sodium Chloride IV 10/18/24 13:29 Infused ONCE ONE Infusion Sodium Chloride Confirm 10/18/24 13:12 Sodium Chloride 0.9% Administered 10/18/24 13:13 Dose 100 mls @ ud .ROUTE .STK-MED ONE Sodium Chloride 1,000 mls @ 999 mls/hr 10/18/24 13:33 10/18/24 14:58 Sodium Chloride 0.9% 1000 Ml IV 10/18/24 14:33 Infused .Q1H1M STA Infusion Sodium Chloride Confirm 10/18/24 14:01 Sodium Chloride 0.9% Administered 10/18/24 14:02 Dose 100 mls @ ud .ROUTE .STK-MED ONE Sodium Chloride Confirm 10/18/24 14:18 Sodium Chloride 0.9% 1000 Ml Administered 10/18/24 14:19 Dose 1,000 mls @ ud .ROUTE .STK-MED ONE Sodium Chloride 1,000 mls @ 100 mls/hr 10/18/24 14:45 10/18/24 14:44 Sodium Chloride 0.9% 1000 Ml IV 11/17/24 14:44 100 mls/hr .Q10H YANN Administration Piperacillin Sod/Tazobactam 100 mls @ 200 mls/hr 10/18/24 18:00 10/19/24 12:37 Sod 3.375 gm/ Sodium Chloride IV 10/21/24 17:59 200 mls/hr Q6HT YANN Administration Sodium Chloride 1,000 mls @ 150 mls/hr 10/18/24 17:30 10/19/24 13:42 Sodium Chloride 0.45% 1000 Ml IV 11/17/24 17:29 Not Given .Q6H40M YANN Potassium Chloride/Dextrose/Sod Cl Confirm 10/19/24 02:34 D5w/0.45ns W/ 20meq Kcl 1000 Ml Administered 10/19/24 02:35 Dose 1,000 mls @ ud IV .STK-MED ONE Potassium Chloride 20 meq in 100 mls @ 50 mls/hr 10/19/24 05:30 10/19/24 07:46 Potassium Chloride 20 Meq In Water 100ml IV 10/19/24 09:29 50 mls/hr Q2H YANN Administration Insulin Glargine 45 unit 10/18/24 17:30 10/19/24 08:02 Insulin Glargine 1 Unit SQ 11/17/24 17:29 Not Given Q24H YANN Insulin Human Lispro 0 unit 10/18/24 17:30 Insulin Lispro 1 Unit SQ 11/17/24 17:29 UD PRN Piperacillin Sod/Tazobactam Sod Confirm 10/18/24 14:01 Piperacillin/Tazobactam Sodium 4.5 Gm Vial Administered 10/18/24 14:02 Dose 4.5 gm IV .STK-MED ONE Potassium Bicarbonate 50 meq 10/19/24 05:24 10/19/24 06:01 Potassium Bicarbonate 25 Meq Tab PO 10/19/24 05:25 50 meq STAT ONE Administration Sodium Bicarbonate 50 meq 10/18/24 12:52 10/18/24 12:58 Sodium Bicarbonate 1 Meq/Ml 50ml Syringe IV 10/18/24 12:53 50 meq STAT ONE Administration Sodium Bicarbonate Confirm 10/18/24 12:57 Sodium Bicarbonate 1 Meq/Ml 50ml Syringe Administered 10/18/24 12:58 Dose 50 meq IV .STK-MED ONE Multi-Disciplinary Progress Notes: Multi-Disciplinary Progress Notes 10/19/24 14:54 Case Management Note by Kasia Bell [facility] HAS ACCEPTED- EARLIEST PATIENT CAN ADMIT TO THEIR FACILITY IS Tuesday10/21/24. THEY WILL BE READY FOR PATIENT ON THAT DAY. 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 REFERRAL SENT TO [facility]. Initialized on 10/19/24 13:07 - END OF NOTE 10/19/24 10:26 Case Management Note by Kasia Bell [facility] WERE NOTIFIED PATIENT HERE INPT. THEY WILL NEED NOTIFIED AT TIME OF DC AT [phone]. THEY WILL NEED FAXED THE DC INSTRUCTIONS, DC MED LIST AND DC SUMMARY TO [phone] Initialized on 10/19/24 10:26 - END OF NOTE Assessment/Plan (1) DKA (diabetic ketoacidoses) Current Visit: Yes Status: Acute Qualifiers: Diabetes mellitus type: other specified (including NGUYEN) Diabetes mellitus complication detail: without coma Qualified Code(s): E13.10 - Other specified diabetes mellitus with ketoacidosis without coma Assessment & Plan: -Supported by glucose >492 mg/dL, anion gap acidosis, low serum bicarbonate, profound acidemia (ABG pH 7.06, VBG pH 6.98), elevated ketones >160, glucosuria >1000, elevated lactic acid. -Complicated by electrolyte derangements including hyperkalemia (K+ up to 6.1 POC) and CHERIE. -Admit to ICU -Continue insulin drip per protocol -Given 50meq of sodium bicarb in ED -Change fluids to 1/2 NS due to hyperkalemia -transition to D5 once glucose <250 mg/dL - per protocol orders placed -BMP/ABG p3z-Awjqxy ABGs until acidosis resolves. -Consider bicarb if PH is less than/equal to 6.9 -Replace electrolytes as indicated; treat hyperkalemia if persistent >6 10/19/24: -Continue DKA protocol as ordered -Patient currently on insulin drip and D5 NS with electrolytes adjusted based on labs -insulin drip held this morning due to hypokalemia -Phos replaced with neutra phos x 2 - repeat lab in 4 hours -Continue IV insulin infusion until bicarbonate/CO2 improves (>18) despite gap closure, then transition to subcutaneous insulin per protocol - currently CO2 at 10 -ABG 10/20: -Co2 at 19 - insulin drip dcd per protocol -Continue basal insulin: Lantus per protocol -Initiate sliding scale for correction of hyperglycemia. -Monitor fingerstick blood glucose before meals and at bedtime; adjust regimen as needed. -Reinforce diabetic diet and ensure patient tolerates oral intake. -Daily metabolic panel to monitor electrolytes and bicarbonate until stable. -Patient education on insulin regimen, sick-day management, and signs/symptoms of DKA recurrence. -continue DKA protocol orders Code(s): E11.10 - TYPE 2 DIABETES MELLITUS WITH KETOACIDOSIS WITHOUT COMA Generalized weakness -Persistent weakness despite metabolic resolution. -[facility]. -PT/OT evaluation completed; continue supportive therapy while inpatient. -Case management working on insurance authorization; discharge pending approval. -Monitor daily progress; encourage out-of-bed activity with nursing staff. (2) Sepsis Current Visit: No Status: Acute Qualifiers: Sepsis type: sepsis due to unspecified organism Sepsis acute organ dysfunction status: with acute organ dysfunction Severe sepsis acute organ dysfunction type: acute renal failure Acute renal failure type: unspecified Severe sepsis shock status: without septic shock Qualified Code(s): A41.9 - Sepsis, unspecified organism; R65.20 - Severe sepsis without septic shock; N17.9 - Acute kidney failure, unspecified Assessment & Plan: -Meet criteria with HR, RR, and WBC at 24.7, elevated lactic -unknown source of infection -May be reactive secondary to DKA -2L IVF bolus given -Monitor lactate trend (initially 3.5 - 2.2). -possible urinary source given distended bladder and enlarged prostate. No clear pulmonary or intra-abdominal source identified on imaging - zosyn given in ED - will continue -CT abdomen/pelvis showed a markedly distended urinary bladder raising concern for urinary outlet obstruction versus neurogenic bladder, with chronic findings of enlarged prostate, chronic diverticulosis, non-obstructive left renal calculi, cholelithiasis, fatty liver, and generalized arteriosclerotic disease. Chest X-ray revealed chronic cardiopulmonary changes without acute process. -Blood cultures pending 10/19: -WBC level improving at 16.8 -No evidence of infection -no antibiotics indicated at present. -Continue daily clinical reassessment and repeat cultures only if new fever or hemodynamic instability 10/20: - WBC improved at 13.3 (3) Bladder distention Current Visit: Yes Status: Acute Assessment & Plan: -noted on CT, place torres for accurate I&O and urinary retention 10/20: -DC torres with trial void/PVR Code(s): N32.89 - OTHER SPECIFIED DISORDERS OF BLADDER (4) Recurrent falls Current Visit: Yes Status: Acute Assessment & Plan: -Low back pain post-fall; no acute fracture noted on available imaging, though further spinal evaluation may be warranted. Code(s): R29.6 - REPEATED FALLS (5) Diabetes mellitus Current Visit: Yes Status: Acute Assessment & Plan: -see DKA above -check A1c 10/19: -A1c 5.36 Code(s): E11.9 - TYPE 2 DIABETES MELLITUS WITHOUT COMPLICATIONS (6) CHERIE (acute kidney injury) Current Visit: Yes Status: Acute Assessment & Plan: -Optimize volume status with IV fluids. -unknown baseline -Monitor renal function and urine output. -Avoid nephrotoxic medications. 10/19: -creat now at 1.07- resolved -continue to monitor CMP daily 10/20: -creat at 0.70 -continue to monitor renal/lytes Code(s): N17.9 - ACUTE KIDNEY FAILURE, UNSPECIFIED (7) BPH (benign prostatic hyperplasia) Current Visit: Yes Status: Acute Assessment & Plan: -shown on CT- FC placed for urinary retention- trial void in 24-48 hours -may need urology OP eval pending results -flomax 10/20: -DC torres Code(s): N40.0 - BENIGN PROSTATIC HYPERPLASIA WITHOUT LOWER URINRY TRACT SYMP (8) HTN (hypertension) Current Visit: Yes Status: Acute Assessment & Plan: -stable - continue home meds Code(s): I10 - ESSENTIAL (PRIMARY) HYPERTENSION (9) GERD (gastroesophageal reflux disease) Current Visit: Yes Status: Acute Assessment & Plan: -Protonix Code(s): K21.9 - GASTRO-ESOPHAGEAL REFLUX DISEASE WITHOUT ESOPHAGITIS (10) Hyperkalemia Current Visit: No Status: Acute Assessment & Plan: -Tele -monitor and replenish per DKA protocol 10/20: -Resolved with potassium wnl at 4.3 VTE: lovenox PPI: protonix Dispo: 2-3 days Code status: Critical care services were provided for this patient due to imminent risk of life-threatening deterioration secondary to severe diabetic ketoacidosis with profound metabolic acidosis (pH ~7.0, HCO2 <5), hyperkalemia, acute kidney injury, and altered metabolic status. The patient required continuous bedside assessment, aggressive IV fluid resuscitation, initiation and titration of insulin infusion, electrolyte management with high risk of rapid shifts, consideration of bicarbonate therapy, interpretation of serial arterial/venous blood gases, frequent review of laboratory and imaging results, and coordination of care with nursing and specialty services. Interventions were necessary to prevent cardiovascular collapse, arrhythmia, respiratory failure, and . Total critical care time 60 minutes, exclusive of separately billable procedures. Code(s): E11.10 - TYPE 2 DIABETES MELLITUS WITH KETOACIDOSIS WITHOUT COMA (2) Sepsis Current Visit: No Status: Acute Qualifiers: Sepsis type: sepsis due to unspecified organism Sepsis acute organ dysfunction status: with acute organ dysfunction Severe sepsis acute organ dysfunction type: acute renal failure Acute renal failure type: unspecified Severe sepsis shock status: without septic shock Qualified Code(s): A41.9 - Sepsis, unspecified organism; R65.20 - Severe sepsis without septic shock; N17.9 - Acute kidney failure, unspecified (3) Bladder distention Current Visit: Yes Status: Acute Code(s): N32.89 - OTHER SPECIFIED DISORDERS OF BLADDER (4) Recurrent falls Current Visit: Yes Status: Acute Code(s): R29.6 - REPEATED FALLS (5) Diabetes mellitus Current Visit: Yes Status: Acute Code(s): E11.9 - TYPE 2 DIABETES MELLITUS WITHOUT COMPLICATIONS (6) CHERIE (acute kidney injury) Current Visit: Yes Status: Acute Code(s): N17.9 - ACUTE KIDNEY FAILURE, UNSPECIFIED (7) BPH (benign prostatic hyperplasia) Current Visit: Yes Status: Acute Code(s): N40.0 - BENIGN PROSTATIC HYPERPLASIA WITHOUT LOWER URINRY TRACT SYMP (8) HTN (hypertension) Current Visit: Yes Status: Acute Code(s): I10 - ESSENTIAL (PRIMARY) HYPERTENSION (9) GERD (gastroesophageal reflux disease) Current Visit: Yes Status: Acute Code(s): K21.9 - GASTRO-ESOPHAGEAL REFLUX DISEASE WITHOUT ESOPHAGITIS (10) Hyperkalemia Current Visit: No Status: Acute Code(s): E87.5 - HYPERKALEMIA (11) Generalized weakness Current Visit: Yes Status: Acute Code(s): R53.1 - WEAKNESS
[2024-10-20] MEDS: Neutra-Phos Packet PO ONE ×2 (08:29→12:04)
[2024-10-20 09:05] LABS: Calcium 8.4 mg/dL (8.4-10.2); Carbon Dioxide 17.0 mmol/L (22-30); Creatinine 1 0.73 mg/dL (0.66-1.25); EST GLOMERULAR FILTRATION RATE 97.9 ML/MIN; Glucose 173.0 mg/dL (74-106); Potassium 4.5 mmol/L (3.5-5.1)
[2024-10-20] MEDS ORDERED: HUMALOG SQ PRN (11:07)
[2024-10-20] MEDS: Lantus Insulin SQ SCH (11:40)
[2024-10-20] MEDS: HUMALOG SQ PRN (13:26)
[2024-10-20 13:50] LABS: Calcium 8.6 mg/dL (8.4-10.2); Creatinine 1 0.87 mg/dL (0.66-1.25); EST GLOMERULAR FILTRATION RATE 92.8 ML/MIN; Glucose 321.0 mg/dL (74-106)
[2024-10-20 14:07] LABS: Carbon Dioxide 10.0 mmol/L (22-30)
[2024-10-20 14:08] LABS: Potassium 6.2 mmol/L (3.5-5.1)
[2024-10-20] MEDS ORDERED: Calcium Gluconate 10% 1000 MG IV ONE (14:11)
[2024-10-20] MEDS: Calcium Gluconate 10% 1000 MG 1,000 MG in Sodium Chloride 0.9% 100 ML IV ONE (14:32)
[2024-10-20] MEDS: Dextrose 5% -0.45 NaCl 1000 ML 1,000 ML IV SCH (15:22)
[2024-10-20] MEDS ORDERED: Dextrose 5% -0.45 NaCl 1000 ML 1,000 ML IV ONE (15:22)
[2024-10-20 15:41] LABS: Calcium 9.2 mg/dL (8.4-10.2); Creatinine 1 0.8 mg/dL (0.66-1.25); EST GLOMERULAR FILTRATION RATE 95.2 ML/MIN; Glucose 249.0 mg/dL (74-106); Potassium 4.5 mmol/L (3.5-5.1)
[2024-10-20 15:48] LABS: Carbon Dioxide 12.0 mmol/L (22-30)
[2024-10-20 16:22] LABS: A-aADO2 19; ABG HEMOGLOBIN 13.5; ABG POTASSIUM 4.4 (3.5-5.1); ABG SITE LEFT BRACHIAL; ARTERIAL BLD GAS O2 SATURATION 98.9 % (95-100); ARTERIAL BLOOD GAS BASE EXCESS -9.6 (-2.0-2.0); ARTERIAL BLOOD GAS FIO2 21 %; ARTERIAL BLOOD GAS PCO2 25 mmHg (35-45); ARTERIAL BLOOD GAS PO2 99 mmHg (75-100); ARTERIAL BLOOD GAS TEMPERATURE 37.0 C; HCO3- 14.1 (22-28); HGB O2 SAT 97.0 g/dF (94-100); Methhemoglobin 1.0 % (1.4-1.5); paO2 pAO1 0.84
[2024-10-20 20:05] LABS: Calcium 9.0 mg/dL (8.4-10.2); Carbon Dioxide 21.0 mmol/L (22-30); Creatinine 1 0.74 mg/dL (0.66-1.25); EST GLOMERULAR FILTRATION RATE 97.5 ML/MIN; Glucose 151.0 mg/dL (74-106); Potassium 3.8 mmol/L (3.5-5.1)
[2024-10-21 00:01] LABS: Calcium 8.7 mg/dL (8.4-10.2); Carbon Dioxide 20.0 mmol/L (22-30); Creatinine 1 0.68 mg/dL (0.66-1.25); EST GLOMERULAR FILTRATION RATE 100.0 ML/MIN; Glucose 164.0 mg/dL (74-106); Potassium 3.8 mmol/L (3.5-5.1)
[2024-10-21 04:24] LABS: BASOPHIL % 0.6 % (0.2-1.2); Basophil (Absolute #) 0.05 x10^3/uL (0.01-0.08); Eosinophil (Absolute #) 0.25 x10^3/uL (0.04-0.54); Hematocrit 37.0 % (40.1-51.0); Hemoglobin 11.9 g/dL (13.7-17.5); IMMATURE GRAN # 0.05 x10^3u/L (0.001-0.031); IMMATURE GRAN % 0.6 % (0.001-0.429); Lymphocyte (Absolute #) 1.65 x10^3/uL (1.32-3.57); Mean Corpuscular Hemoglobin 25.8 pg (25.7-32.2); Mean Corpuscular Hgb Concent. 32.2 g/dL (32.3-36.5); Monocyte (Absolute #) 0.86 x10^3/uL (0.30-0.82); NUCLEATED RBC # 0.00 x10^3u/L (0.00-0.012); NUCLEATED RBC % 0.0 % (0.00-0.2); Platelet Count 222 x10^3/uL (163-337); Red Blood Count 4.61 x10^6/uL (4.63-6.08); White Blood Count 8.3 x10^3/uL (4.23-9.07)
[2024-10-21 04:29] LABS: Calcium 8.5 mg/dL (8.4-10.2); Carbon Dioxide 22.0 mmol/L (22-30); Creatinine 1 0.66 mg/dL (0.66-1.25); EST GLOMERULAR FILTRATION RATE 100.9 ML/MIN; Glucose 156.0 mg/dL (74-106); Potassium 3.8 mmol/L (3.5-5.1); SGOT/AST 43.0 U/L (17-59); SGPT/ALT 40.0 U/L (0-50); Total Protein 5.6 g/dL (6.3-8.2)
[2024-10-21] MEDS: Lantus Insulin SQ SCH ×2 (05:00→18:28)
--- NOTE | 2024-10-21 05:35 | PCM.NOTE ---
Date and Time: 10/21/24 0533 Subjective Assessment: is a 69 year old male with a pmhx of HLD, HTN, GERD, and DMII who presented to ED 10/18/24 with complaints of weakness, nausea, and vomiting since yesterday. He reports falling out of bed last Tuesday and has recently been having an unsteady gait which prompted him to seek medical attention at [facility] where he was recently admitted and discharged yesterday. He is a poor historian regarding his medical regimen, stating he was recently hospitalized at a [facility] facility for a stroke workup but is unclear about the outcome. He reports that he was instructed not to take his insulin and has not taken any since last Tuesday. We will obtain these records. A home health aide who evaluated him earlier today found him clinically unfit to remain alone at home and noted severe hyperglycemia, prompting EMS activation. On arrival, the patient also endorsed low back pain following his recent fall. Upon arrival to ED patient was tachycardic though otherwise hemodynamically stable. Lab findings remarkable for WBC , serum sodium 147 , potassium 5.2 , chloride 115 , BUN 35, and creatinine 1.49. Glucose was critically high at 492 on admission, later trending down to 347 mg/dL after intervention. Serum bicarbonate was severely depressed (<5 mmol/L) with an anion gap metabolic acidosis. Arterial blood gases showed severe metabolic acidosis with partial respiratory compensation. Lactic acid was elevated at 3.5 on admission, later improving to 2.2. Urine studies were notable for glucosuria >1000 and ketones >160, confirming ketoacidosis. Magnesium was elevated at 2.9. Respiratory viral panel was negative, reducing concern for viral trigger. Imaging revealed multiple acute and chronic findings. CT head demonstrated non-acute senile changes without acute intracranial process, reducing immediate concern for traumatic bleed in the context of falls and possible anticoagulation. CT abdomen/pelvis showed a markedly distended urinary bladder raising concern for urinary outlet obstruction versus neurogenic bladder, with chronic findings of enlarged prostate, chronic diverticulosis, non-obstructive left renal calculi, cholelithiasis, fatty liver, and generalized arteriosclerotic disease. Chest X- ray revealed chronic cardiopulmonary changes without acute process. Patient started on insulin drip, given sodium bicarb 50meq, IVF bolus of 2L, Zosyn, proventil, and calcium chloride. Admitted for DKA. 10/19/24: Met with patient bedside. Patient reports feeling significantly better compared to admission. Denies ongoing nausea, vomiting, abdominal pain, or shortness of breath. States energy has improved and appetite is returning. No chest pain, palpitations, or dizziness. Patient aware insulin drip was previously stopped due to hypokalemia, which has since resolved. Expresses relief that blood sugars are under better control. Denies fever,cough, abdominal pain, HENDERSON, dizziness, N/V/D. 10/20/24: Patient seen at bedside. Reports overall improvement since admission with resolution of nausea and abdominal discomfort. Endorses continued generalized weakness and fatigue but is tolerating oral intake well without difficulty. Denies chest pain, shortness of breath, or abdominal pain. Patient is agreeable to discharge to a [facility] facility for rehabilitation once medically stable; authorization process is pending. Edit 10/20/24: The patient was stable this morning following resolution of DKA and transition to subcutaneous basal/bolus insulin. Over the course of the day, he experienced a large episode of diarrhea and had previously received two doses of Neutra- Phos. Repeat labs revealed potassium 6.2, CO2 10, chloride 109, glucose 321, and an anion gap of 24.9, raising concern for possible recurrence of ketosis after initially being closed. EKG remained normal and the patient was maintained on continuous telemetry. Calcium gluconate was administered for cardiac stabilization, and he subsequently received 12 units of IV insulin when his glucose was 300. Repeat BMP now shows resolution of hyperkalemia with potassium improved to 4.5. Phosphorus level has risen to 2.6, which is within normal limits at present. CO2 remains low at 12 and GAP at 20.9 blood glucose level at 251. Given the recurrence of anion gap metabolic acidosis with hyperglycemia, the patient has been placed back on the insulin drip with DKA protocol resumed. 10/21/24: Patient reports feeling much improved today with resolution of prior nausea, weakness, and diarrhea. Denies chest pain, palpitations, or shortness of breath. Tolerating oral intake without difficulty. Notes improved energy and appetite. Aware of and agreeable with transition to basalbolus insulin regimen. Labs reviewed with patient showing improvement with resolution of acidosis and no electrolyte abnormalities noted. Plan for discharge to SNF for rehab when medically stable. - Review of Systems Constitutional: No Symptoms Eyes: No Symptoms Ears, Nose, & Throat: No Symptoms Respiratory: No Symptoms Cardiac: No Symptoms Abdominal/Gastrointestinal: No Symptoms Genitourinary Symptoms: No Symptoms Musculoskeletal: No Symptoms Skin: No Symptoms Neurological: No Symptoms Psychological: No Symptoms Endocrine: No Symptoms Hematologic/Lymphatic: No Symptoms Immunological/Allergic: No Symptoms Objective Exam General Appearance: no apparent distress Neurologic Exam: alert, oriented x 3, cooperative Skin Exam: normal color Eye Exam: PERRL Ears, Nose, Throat Exam: normal ENT inspection Neck Exam: normal inspection Respiratory Exam: normal breath sounds, lungs clear Cardiovascular Exam: regular rate/rhythm, normal heart sounds Gastrointestinal/Abdomen Exam: soft, normal bowel sounds Extremity Exam: normal inspection Back Exam: normal inspection Male Genitalia Exam: deferred Rectal Exam: deferred Objective Data Vital Signs: Vital Signs - 24 hr Temp Pulse Resp BP Pulse Ox 10/21/24 05:00 65 19 141/81 100 10/21/24 04:00 98.5 F 76 22 155/57 99 10/21/24 03:00 69 17 156/85 95 10/21/24 02:00 70 12 157/78 95 10/21/24 01:00 68 16 145/74 99 10/21/24 00:02 97.5 F 70 18 168/74 98 10/21/24 00:01 72 10/20/24 23:00 76 21 151/78 97 10/20/24 22:00 73 17 144/79 99 10/20/24 21:02 71 15 139/73 98 10/20/24 20:02 97.7 F 77 21 98 10/20/24 20:00 77 10/20/24 19:00 78 19 141/78 10/20/24 18:00 98.0 F 77 17 153/73 10/20/24 17:00 81 18 137/67 10/20/24 16:00 102 H 19 10/20/24 15:00 84 21 144/67 99 10/20/24 14:00 80 24 139/64 98 10/20/24 13:00 85 18 140/55 10/20/24 12:00 98.2 F 89 21 136/49 10/20/24 11:54 89 24 126/48 10/20/24 11:05 93 H 19 10/20/24 10:30 96 10/20/24 10:20 96 10/20/24 09:01 161/73 10/20/24 08:00 98.0 F 89 26 H 149/72 10/20/24 07:00 79 23 151/72 97 10/20/24 06:48 74 20 97 10/20/24 06:01 75 20 148/74 98 Pain Assessment - Last Documented Pain Intensity 0 Intake and Output: Intake & Output 10/18/24 10/19/24 10/20/24 10/21/24 11:59 11:59 11:59 11:59 Intake Total 3250 8084 1255 Output Total 4503 2590 1275 Balance -1255 5478 -20 Weight 70.4 kg 66.6 kg 66.6 kg Lab Results: Lab Results-Last 24 Hours 10/20/24 10/20/24 10/20/24 Range/Units 05:47 06:56 08:02 WBC (4.23-9.07) x10^3/uL RBC (4.63-6.08) x10^6/uL Hgb (13.7-17.5) g/dL Hct (40.1-51.0) % MCV (79.0-92.2) fL MCH (25.7-32.2) pg MCHC (32.3-36.5) g/dL RDW (11.6-14.4) % Plt Count (163-337) x10^3/uL MPV (9.4-12.4) fL Gran % (34.0-67.9) % Immature Gran % (Auto) (0.001-0.429) % Nucleat RBC Rel Count (0.00-0.2) % Eos # (Auto) (0.04-0.54) x10^3/uL Immature Gran # (Auto) (0.001-0.031) x10^3u/L Absolute Lymphs (auto) (1.32-3.57) x10^3/uL Absolute Monos (auto) (0.30-0.82) x10^3/uL Absolute Nucleated RBC (0.00-0.012) x10^3u/L Lymphocytes % (21.8-53.1) % Monocytes % (5.3-12.2) % Eosinophils % (0.8-7.0) % Basophils % (0.2-1.2) % Absolute Granulocytes (1.78-5.38) x10^3/uL Basophils # (0.01-0.08) x10^3/uL Puncture Site pCO2 (35-45) mmHg pO2 (75-100) mmHg Base Excess (-2.0-2.0) O2 Saturation (94-100) g/dF ABG pH (7.35-7.45) ABG HCO3 (22-28) ABG O2 Sat (Measured) (95-100) % Wesley Test A-a Gradient a/A Ratio Hemoglobin Carboxyhemoglobin (0.0-6.9) % THgb Methemoglobin (1.4-1.5) % Temperature C POC O2 Flow Rate % Sodium (135-145) mmol/L Potassium (3.5-5.1) mmol/L Chloride (98-107) mmol/L Carbon Dioxide (22-30) mmol/L Anion Gap (5-15) MEQ/L BUN (9-20) mg/dL Creatinine (0.66-1.25) mg/dL Estimated GFR ML/MIN Glucose (74-106) mg/dL POC Glucometer 133 H 164 H 174 H (74 to 106) mg/dL Calcium (8.4-10.2) mg/dL Phosphorus (2.5-4.5) mg/dL Total Bilirubin (0.2-1.3) mg/dL AST (17-59) U/L ALT (0-50) U/L Alkaline Phosphatase (38-126) U/L Serum Total Protein (6.3-8.2) g/dL Albumin (3.5-5.0) g/dL 10/20/24 10/20/24 10/20/24 Range/Units 08:45 12:04 13:35 WBC (4.23-9.07) x10^3/uL RBC (4.63-6.08) x10^6/uL Hgb (13.7-17.5) g/dL Hct (40.1-51.0) % MCV (79.0-92.2) fL MCH (25.7-32.2) pg MCHC (32.3-36.5) g/dL RDW (11.6-14.4) % Plt Count (163-337) x10^3/uL MPV (9.4-12.4) fL Gran % (34.0-67.9) % Immature Gran % (Auto) (0.001-0.429) % Nucleat RBC Rel Count (0.00-0.2) % Eos # (Auto) (0.04-0.54) x10^3/uL Immature Gran # (Auto) (0.001-0.031) x10^3u/L Absolute Lymphs (auto) (1.32-3.57) x10^3/uL Absolute Monos (auto) (0.30-0.82) x10^3/uL Absolute Nucleated RBC (0.00-0.012) x10^3u/L Lymphocytes % (21.8-53.1) % Monocytes % (5.3-12.2) % Eosinophils % (0.8-7.0) % Basophils % (0.2-1.2) % Absolute Granulocytes (1.78-5.38) x10^3/uL Basophils # (0.01-0.08) x10^3/uL Puncture Site pCO2 (35-45) mmHg pO2 (75-100) mmHg Base Excess (-2.0-2.0) O2 Saturation (94-100) g/dF ABG pH (7.35-7.45) ABG HCO3 (22-28) ABG O2 Sat (Measured) (95-100) % Wesley Test A-a Gradient a/A Ratio Hemoglobin Carboxyhemoglobin (0.0-6.9) % THgb Methemoglobin (1.4-1.5) % Temperature C POC O2 Flow Rate % Sodium 142 139 (135-145) mmol/L Potassium 4.5 6.2 H* D (3.5-5.1) mmol/L Chloride 117 H 109 H (98-107) mmol/L Carbon Dioxide 17 L 10 L* (22-30) mmol/L Anion Gap 12.6 24.9 H (5-15) MEQ/L BUN 12 14 (9-20) mg/dL Creatinine 0.73 0.87 (0.66-1.25) mg/dL Estimated GFR 97.9 92.8 ML/MIN Glucose 173 H 321 H (74-106) mg/dL POC Glucometer 306 H (74 to 106) mg/dL Calcium 8.4 8.6 (8.4-10.2) mg/dL Phosphorus 2.0 L 2.6 (2.5-4.5) mg/dL Total Bilirubin (0.2-1.3) mg/dL AST (17-59) U/L ALT (0-50) U/L Alkaline Phosphatase (38-126) U/L Serum Total Protein (6.3-8.2) g/dL Albumin (3.5-5.0) g/dL 10/20/24 10/20/24 10/20/24 Range/Units 15:11 15:25 15:59 WBC (4.23-9.07) x10^3/uL RBC (4.63-6.08) x10^6/uL Hgb (13.7-17.5) g/dL Hct (40.1-51.0) % MCV (79.0-92.2) fL MCH (25.7-32.2) pg MCHC (32.3-36.5) g/dL RDW (11.6-14.4) % Plt Count (163-337) x10^3/uL MPV (9.4-12.4) fL Gran % (34.0-67.9) % Immature Gran % (Auto) (0.001-0.429) % Nucleat RBC Rel Count (0.00-0.2) % Eos # (Auto) (0.04-0.54) x10^3/uL Immature Gran # (Auto) (0.001-0.031) x10^3u/L Absolute Lymphs (auto) (1.32-3.57) x10^3/uL Absolute Monos (auto) (0.30-0.82) x10^3/uL Absolute Nucleated RBC (0.00-0.012) x10^3u/L Lymphocytes % (21.8-53.1) % Monocytes % (5.3-12.2) % Eosinophils % (0.8-7.0) % Basophils % (0.2-1.2) % Absolute Granulocytes (1.78-5.38) x10^3/uL Basophils # (0.01-0.08) x10^3/uL Puncture Site LEFT BRACHIAL pCO2 25 L (35-45) mmHg pO2 99 (75-100) mmHg Base Excess -9.6 L (-2.0-2.0) O2 Saturation 97.0 (94-100) g/dF ABG pH 7.36 (7.35-7.45) ABG HCO3 14.1 L* (22-28) ABG O2 Sat (Measured) 98.9 (95-100) % Wesley Test NOT APPLICABLE A-a Gradient 19 a/A Ratio 0.84 Hemoglobin 13.5 Carboxyhemoglobin 0.9 (0.0-6.9) % THgb Methemoglobin 1.0 L (1.4-1.5) % Temperature 37.0 C POC O2 Flow Rate 21 % Sodium 140 (135-145) mmol/L Potassium 4.5 D 4.4 (3.5-5.1) mmol/L Chloride 112 H (98-107) mmol/L Carbon Dioxide 12 L* (22-30) mmol/L Anion Gap 20.9 H (5-15) MEQ/L BUN 14 (9-20) mg/dL Creatinine 0.80 (0.66-1.25) mg/dL Estimated GFR 95.2 ML/MIN Glucose 249 H (74-106) mg/dL POC Glucometer 251 H (74 to 106) mg/dL Calcium 9.2 (8.4-10.2) mg/dL Phosphorus (2.5-4.5) mg/dL Total Bilirubin (0.2-1.3) mg/dL AST (17-59) U/L ALT (0-50) U/L Alkaline Phosphatase (38-126) U/L Serum Total Protein (6.3-8.2) g/dL Albumin (3.5-5.0) g/dL 10/20/24 10/20/24 10/20/24 Range/Units 16:06 17:04 18:39 WBC (4.23-9.07) x10^3/uL RBC (4.63-6.08) x10^6/uL Hgb (13.7-17.5) g/dL Hct (40.1-51.0) % MCV (79.0-92.2) fL MCH (25.7-32.2) pg MCHC (32.3-36.5) g/dL RDW (11.6-14.4) % Plt Count (163-337) x10^3/uL MPV (9.4-12.4) fL Gran % (34.0-67.9) % Immature Gran % (Auto) (0.001-0.429) % Nucleat RBC Rel Count (0.00-0.2) % Eos # (Auto) (0.04-0.54) x10^3/uL Immature Gran # (Auto) (0.001-0.031) x10^3u/L Absolute Lymphs (auto) (1.32-3.57) x10^3/uL Absolute Monos (auto) (0.30-0.82) x10^3/uL Absolute Nucleated RBC (0.00-0.012) x10^3u/L Lymphocytes % (21.8-53.1) % Monocytes % (5.3-12.2) % Eosinophils % (0.8-7.0) % Basophils % (0.2-1.2) % Absolute Granulocytes (1.78-5.38) x10^3/uL Basophils # (0.01-0.08) x10^3/uL Puncture Site pCO2 (35-45) mmHg pO2 (75-100) mmHg Base Excess (-2.0-2.0) O2 Saturation (94-100) g/dF ABG pH (7.35-7.45) ABG HCO3 (22-28) ABG O2 Sat (Measured) (95-100) % Wesley Test A-a Gradient a/A Ratio Hemoglobin Carboxyhemoglobin (0.0-6.9) % THgb Methemoglobin (1.4-1.5) % Temperature C POC O2 Flow Rate % Sodium (135-145) mmol/L Potassium (3.5-5.1) mmol/L Chloride (98-107) mmol/L Carbon Dioxide (22-30) mmol/L Anion Gap (5-15) MEQ/L BUN (9-20) mg/dL Creatinine (0.66-1.25) mg/dL Estimated GFR ML/MIN Glucose (74-106) mg/dL POC Glucometer 223 H 182 H 157 H (74 to 106) mg/dL Calcium (8.4-10.2) mg/dL Phosphorus (2.5-4.5) mg/dL Total Bilirubin (0.2-1.3) mg/dL AST (17-59) U/L ALT (0-50) U/L Alkaline Phosphatase (38-126) U/L Serum Total Protein (6.3-8.2) g/dL Albumin (3.5-5.0) g/dL 10/20/24 10/20/24 10/20/24 Range/Units 19:48 19:51 21:03 WBC (4.23-9.07) x10^3/uL RBC (4.63-6.08) x10^6/uL Hgb (13.7-17.5) g/dL Hct (40.1-51.0) % MCV (79.0-92.2) fL MCH (25.7-32.2) pg MCHC (32.3-36.5) g/dL RDW (11.6-14.4) % Plt Count (163-337) x10^3/uL MPV (9.4-12.4) fL Gran % (34.0-67.9) % Immature Gran % (Auto) (0.001-0.429) % Nucleat RBC Rel Count (0.00-0.2) % Eos # (Auto) (0.04-0.54) x10^3/uL Immature Gran # (Auto) (0.001-0.031) x10^3u/L Absolute Lymphs (auto) (1.32-3.57) x10^3/uL Absolute Monos (auto) (0.30-0.82) x10^3/uL Absolute Nucleated RBC (0.00-0.012) x10^3u/L Lymphocytes % (21.8-53.1) % Monocytes % (5.3-12.2) % Eosinophils % (0.8-7.0) % Basophils % (0.2-1.2) % Absolute Granulocytes (1.78-5.38) x10^3/uL Basophils # (0.01-0.08) x10^3/uL Puncture Site pCO2 (35-45) mmHg pO2 (75-100) mmHg Base Excess (-2.0-2.0) O2 Saturation (94-100) g/dF ABG pH (7.35-7.45) ABG HCO3 (22-28) ABG O2 Sat (Measured) (95-100) % Wesley Test A-a Gradient a/A Ratio Hemoglobin Carboxyhemoglobin (0.0-6.9) % THgb Methemoglobin (1.4-1.5) % Temperature C POC O2 Flow Rate % Sodium 139 (135-145) mmol/L Potassium 3.8 (3.5-5.1) mmol/L Chloride 111 H (98-107) mmol/L Carbon Dioxide 21 L (22-30) mmol/L Anion Gap 10.9 (5-15) MEQ/L BUN 13 (9-20) mg/dL Creatinine 0.74 (0.66-1.25) mg/dL Estimated GFR 97.5 ML/MIN Glucose 151 H (74-106) mg/dL POC Glucometer 148 H 116 H (74 to 106) mg/dL Calcium 9.0 (8.4-10.2) mg/dL Phosphorus (2.5-4.5) mg/dL Total Bilirubin (0.2-1.3) mg/dL AST (17-59) U/L ALT (0-50) U/L Alkaline Phosphatase (38-126) U/L Serum Total Protein (6.3-8.2) g/dL Albumin (3.5-5.0) g/dL 10/20/24 10/20/24 10/20/24 Range/Units 22:04 23:06 23:34 WBC (4.23-9.07) x10^3/uL RBC (4.63-6.08) x10^6/uL Hgb (13.7-17.5) g/dL Hct (40.1-51.0) % MCV (79.0-92.2) fL MCH (25.7-32.2) pg MCHC (32.3-36.5) g/dL RDW (11.6-14.4) % Plt Count (163-337) x10^3/uL MPV (9.4-12.4) fL Gran % (34.0-67.9) % Immature Gran % (Auto) (0.001-0.429) % Nucleat RBC Rel Count (0.00-0.2) % Eos # (Auto) (0.04-0.54) x10^3/uL Immature Gran # (Auto) (0.001-0.031) x10^3u/L Absolute Lymphs (auto) (1.32-3.57) x10^3/uL Absolute Monos (auto) (0.30-0.82) x10^3/uL Absolute Nucleated RBC (0.00-0.012) x10^3u/L Lymphocytes % (21.8-53.1) % Monocytes % (5.3-12.2) % Eosinophils % (0.8-7.0) % Basophils % (0.2-1.2) % Absolute Granulocytes (1.78-5.38) x10^3/uL Basophils # (0.01-0.08) x10^3/uL Puncture Site pCO2 (35-45) mmHg pO2 (75-100) mmHg Base Excess (-2.0-2.0) O2 Saturation (94-100) g/dF ABG pH (7.35-7.45) ABG HCO3 (22-28) ABG O2 Sat (Measured) (95-100) % Wesley Test A-a Gradient a/A Ratio Hemoglobin Carboxyhemoglobin (0.0-6.9) % THgb Methemoglobin (1.4-1.5) % Temperature C POC O2 Flow Rate % Sodium 138 (135-145) mmol/L Potassium 3.8 (3.5-5.1) mmol/L Chloride 111 H (98-107) mmol/L Carbon Dioxide 20 L (22-30) mmol/L Anion Gap 10.6 (5-15) MEQ/L BUN 11 (9-20) mg/dL Creatinine 0.68 (0.66-1.25) mg/dL Estimated GFR 100.0 ML/MIN Glucose 164 H (74-106) mg/dL POC Glucometer 100 98 (74 to 106) mg/dL Calcium 8.7 (8.4-10.2) mg/dL Phosphorus (2.5-4.5) mg/dL Total Bilirubin (0.2-1.3) mg/dL AST (17-59) U/L ALT (0-50) U/L Alkaline Phosphatase (38-126) U/L Serum Total Protein (6.3-8.2) g/dL Albumin (3.5-5.0) g/dL 10/20/24 10/21/24 10/21/24 Range/Units 23:50 00:00 00:48 WBC (4.23-9.07) x10^3/uL RBC (4.63-6.08) x10^6/uL Hgb (13.7-17.5) g/dL Hct (40.1-51.0) % MCV (79.0-92.2) fL MCH (25.7-32.2) pg MCHC (32.3-36.5) g/dL RDW (11.6-14.4) % Plt Count (163-337) x10^3/uL MPV (9.4-12.4) fL Gran % (34.0-67.9) % Immature Gran % (Auto) (0.001-0.429) % Nucleat RBC Rel Count (0.00-0.2) % Eos # (Auto) (0.04-0.54) x10^3/uL Immature Gran # (Auto) (0.001-0.031) x10^3u/L Absolute Lymphs (auto) (1.32-3.57) x10^3/uL Absolute Monos (auto) (0.30-0.82) x10^3/uL Absolute Nucleated RBC (0.00-0.012) x10^3u/L Lymphocytes % (21.8-53.1) % Monocytes % (5.3-12.2) % Eosinophils % (0.8-7.0) % Basophils % (0.2-1.2) % Absolute Granulocytes (1.78-5.38) x10^3/uL Basophils # (0.01-0.08) x10^3/uL Puncture Site pCO2 (35-45) mmHg pO2 (75-100) mmHg Base Excess (-2.0-2.0) O2 Saturation (94-100) g/dF ABG pH (7.35-7.45) ABG HCO3 (22-28) ABG O2 Sat (Measured) (95-100) % Wesley Test A-a Gradient a/A Ratio Hemoglobin Carboxyhemoglobin (0.0-6.9) % THgb Methemoglobin (1.4-1.5) % Temperature C POC O2 Flow Rate % Sodium (135-145) mmol/L Potassium (3.5-5.1) mmol/L Chloride (98-107) mmol/L Carbon Dioxide (22-30) mmol/L Anion Gap (5-15) MEQ/L BUN (9-20) mg/dL Creatinine (0.66-1.25) mg/dL Estimated GFR ML/MIN Glucose (74-106) mg/dL POC Glucometer 155 H 149 H (74 to 106) mg/dL Calcium (8.4-10.2) mg/dL Phosphorus 3.2 (2.5-4.5) mg/dL Total Bilirubin (0.2-1.3) mg/dL AST (17-59) U/L ALT (0-50) U/L Alkaline Phosphatase (38-126) U/L Serum Total Protein (6.3-8.2) g/dL Albumin (3.5-5.0) g/dL 10/21/24 10/21/24 10/21/24 Range/Units 02:03 03:05 04:10 WBC (4.23-9.07) x10^3/uL RBC (4.63-6.08) x10^6/uL Hgb (13.7-17.5) g/dL Hct (40.1-51.0) % MCV (79.0-92.2) fL MCH (25.7-32.2) pg MCHC (32.3-36.5) g/dL RDW (11.6-14.4) % Plt Count (163-337) x10^3/uL MPV (9.4-12.4) fL Gran % (34.0-67.9) % Immature Gran % (Auto) (0.001-0.429) % Nucleat RBC Rel Count (0.00-0.2) % Eos # (Auto) (0.04-0.54) x10^3/uL Immature Gran # (Auto) (0.001-0.031) x10^3u/L Absolute Lymphs (auto) (1.32-3.57) x10^3/uL Absolute Monos (auto) (0.30-0.82) x10^3/uL Absolute Nucleated RBC (0.00-0.012) x10^3u/L Lymphocytes % (21.8-53.1) % Monocytes % (5.3-12.2) % Eosinophils % (0.8-7.0) % Basophils % (0.2-1.2) % Absolute Granulocytes (1.78-5.38) x10^3/uL Basophils # (0.01-0.08) x10^3/uL Puncture Site pCO2 (35-45) mmHg pO2 (75-100) mmHg Base Excess (-2.0-2.0) O2 Saturation (94-100) g/dF ABG pH (7.35-7.45) ABG HCO3 (22-28) ABG O2 Sat (Measured) (95-100) % Wesley Test A-a Gradient a/A Ratio Hemoglobin Carboxyhemoglobin (0.0-6.9) % THgb Methemoglobin (1.4-1.5) % Temperature C POC O2 Flow Rate % Sodium (135-145) mmol/L Potassium (3.5-5.1) mmol/L Chloride (98-107) mmol/L Carbon Dioxide (22-30) mmol/L Anion Gap (5-15) MEQ/L BUN (9-20) mg/dL Creatinine (0.66-1.25) mg/dL Estimated GFR ML/MIN Glucose (74-106) mg/dL POC Glucometer 162 H 155 H 153 H (74 to 106) mg/dL Calcium (8.4-10.2) mg/dL Phosphorus (2.5-4.5) mg/dL Total Bilirubin (0.2-1.3) mg/dL AST (17-59) U/L ALT (0-50) U/L Alkaline Phosphatase (38-126) U/L Serum Total Protein (6.3-8.2) g/dL Albumin (3.5-5.0) g/dL 10/21/24 10/21/24 10/21/24 Range/Units 04:13 04:13 04:13 WBC 8.3 (4.23-9.07) x10^3/uL RBC 4.61 L (4.63-6.08) x10^6/uL Hgb 11.9 L (13.7-17.5) g/dL Hct 37.0 L (40.1-51.0) % MCV 80.3 (79.0-92.2) fL MCH 25.8 (25.7-32.2) pg MCHC 32.2 L (32.3-36.5) g/dL RDW 17.5 H (11.6-14.4) % Plt Count 222 (163-337) x10^3/uL MPV 9.8 (9.4-12.4) fL Gran % 65.4 (34.0-67.9) % Immature Gran % (Auto) 0.6 H (0.001-0.429) % Nucleat RBC Rel Count 0.0 (0.00-0.2) % Eos # (Auto) 0.25 (0.04-0.54) x10^3/uL Immature Gran # (Auto) 0.05 H (0.001-0.031) x10^3u/L Absolute Lymphs (auto) 1.65 (1.32-3.57) x10^3/uL Absolute Monos (auto) 0.86 H (0.30-0.82) x10^3/uL Absolute Nucleated RBC 0.00 (0.00-0.012) x10^3u/L Lymphocytes % 20.0 L (21.8-53.1) % Monocytes % 10.4 (5.3-12.2) % Eosinophils % 3.0 (0.8-7.0) % Basophils % 0.6 (0.2-1.2) % Absolute Granulocytes 5.41 H (1.78-5.38) x10^3/uL Basophils # 0.05 (0.01-0.08) x10^3/uL Puncture Site pCO2 (35-45) mmHg pO2 (75-100) mmHg Base Excess (-2.0-2.0) O2 Saturation (94-100) g/dF ABG pH (7.35-7.45) ABG HCO3 (22-28) ABG O2 Sat (Measured) (95-100) % Wesley Test A-a Gradient a/A Ratio Hemoglobin Carboxyhemoglobin (0.0-6.9) % THgb Methemoglobin (1.4-1.5) % Temperature C POC O2 Flow Rate % Sodium 136 (135-145) mmol/L Potassium 3.8 (3.5-5.1) mmol/L Chloride 107 (98-107) mmol/L Carbon Dioxide 22 (22-30) mmol/L Anion Gap 10.9 (5-15) MEQ/L BUN 9 (9-20) mg/dL Creatinine 0.66 (0.66-1.25) mg/dL Estimated GFR 100.9 ML/MIN Glucose 156 H (74-106) mg/dL POC Glucometer (74 to 106) mg/dL Calcium 8.5 (8.4-10.2) mg/dL Phosphorus 3.3 (2.5-4.5) mg/dL Total Bilirubin 0.90 (0.2-1.3) mg/dL AST 43 (17-59) U/L ALT 40 (0-50) U/L Alkaline Phosphatase 77 (38-126) U/L Serum Total Protein 5.6 L (6.3-8.2) g/dL Albumin 3.0 L (3.5-5.0) g/dL 10/21/24 Range/Units 05:03 WBC (4.23-9.07) x10^3/uL RBC (4.63-6.08) x10^6/uL Hgb (13.7-17.5) g/dL Hct (40.1-51.0) % MCV (79.0-92.2) fL MCH (25.7-32.2) pg MCHC (32.3-36.5) g/dL RDW (11.6-14.4) % Plt Count (163-337) x10^3/uL MPV (9.4-12.4) fL Gran % (34.0-67.9) % Immature Gran % (Auto) (0.001-0.429) % Nucleat RBC Rel Count (0.00-0.2) % Eos # (Auto) (0.04-0.54) x10^3/uL Immature Gran # (Auto) (0.001-0.031) x10^3u/L Absolute Lymphs (auto) (1.32-3.57) x10^3/uL Absolute Monos (auto) (0.30-0.82) x10^3/uL Absolute Nucleated RBC (0.00-0.012) x10^3u/L Lymphocytes % (21.8-53.1) % Monocytes % (5.3-12.2) % Eosinophils % (0.8-7.0) % Basophils % (0.2-1.2) % Absolute Granulocytes (1.78-5.38) x10^3/uL Basophils # (0.01-0.08) x10^3/uL Puncture Site pCO2 (35-45) mmHg pO2 (75-100) mmHg Base Excess (-2.0-2.0) O2 Saturation (94-100) g/dF ABG pH (7.35-7.45) ABG HCO3 (22-28) ABG O2 Sat (Measured) (95-100) % Wesley Test A-a Gradient a/A Ratio Hemoglobin Carboxyhemoglobin (0.0-6.9) % THgb Methemoglobin (1.4-1.5) % Temperature C POC O2 Flow Rate % Sodium (135-145) mmol/L Potassium (3.5-5.1) mmol/L Chloride (98-107) mmol/L Carbon Dioxide (22-30) mmol/L Anion Gap (5-15) MEQ/L BUN (9-20) mg/dL Creatinine (0.66-1.25) mg/dL Estimated GFR ML/MIN Glucose (74-106) mg/dL POC Glucometer 211 H (74 to 106) mg/dL Calcium (8.4-10.2) mg/dL Phosphorus (2.5-4.5) mg/dL Total Bilirubin (0.2-1.3) mg/dL AST (17-59) U/L ALT (0-50) U/L Alkaline Phosphatase (38-126) U/L Serum Total Protein (6.3-8.2) g/dL Albumin (3.5-5.0) g/dL Medications: Medications Generic Name Dose Route Start Last Admin Trade Name Freq PRN Reason Stop Dose Admin Acetaminophen 650 mg 10/18/24 17:11 Acetaminophen 325 Mg Tablet PO 11/17/24 17:10 Q4H PRN PRN PAIN, FEVER, HEADACHE Dextrose 25 ml 10/19/24 22:03 10/20/24 23:22 Dextrose 50%-Water 50 Ml Abboject IV 11/18/24 22:02 25 ml PRN PRN Administration HYPOGLYCEMIA Enoxaparin Sodium 40 mg 10/19/24 10:00 10/20/24 11:40 Enoxaparin Sodium 40 Mg/0.4 Ml Syringe SQ 11/18/24 09:59 40 mg DAILY YANN Administration Potassium Chloride/Dextrose/Sod Cl 1,000 mls @ 150 mls/hr 10/18/24 20:00 10/21/24 03:15 D5w/0.45ns W/ 20meq Kcl 1000 Ml IV 11/17/24 19:59 Not Given .[id number] YANN Dextrose/Sodium Chloride 1,000 mls @ 150 mls/hr 10/20/24 15:15 10/21/24 03:15 Dextrose 5% -0.45 Nacl 1000 Ml IV 11/19/24 15:14 200 mls/hr .[id number] YANN Administration Insulin Glargine 20 unit 10/20/24 11:07 10/20/24 11:40 Insulin Glargine 1 Unit SQ 11/19/24 11:06 20 unit QAM YANN Administration Insulin Glargine 30 unit 10/21/24 04:45 10/21/24 05:00 Insulin Glargine 1 Unit SQ 11/20/24 04:44 30 unit Q12H YANN Administration Insulin Human Lispro 0 unit 10/20/24 13:11 10/20/24 13:26 Insulin Lispro 1 Unit SQ 11/19/24 13:10 12 unit UD PRN Administration HYPERGLYCEMIA Ondansetron HCl 4 mg 10/18/24 17:11 Ondansetron Hcl 4 Mg/2 Ml Vial IV 11/17/24 17:10 Q6H PRN PRN NAUSEA/VOMITING Discontinued Medications Generic Name Dose Route Start Last Admin Trade Name Freq PRN Reason Stop Dose Admin Albuterol Sulfate 10 mg 10/18/24 12:53 10/18/24 13:10 Albuterol Sulfate 2.5 Mg/3 Ml Neb IH 10/18/24 12:54 10 mg STAT ONE Administration Albuterol Sulfate Confirm 10/18/24 13:00 Albuterol Sulfate 2.5 Mg/3 Ml Neb Administered 10/18/24 13:01 Dose 2.5 mg IH .STK-MED ONE Albuterol/Ipratropium 3 ml 10/18/24 17:11 Ipratropium/Albuterol Sulfate 3 Ml Ampul.Neb IH 11/17/24 18:59 Q6HRT PRN SHORTNESS OF BREATH/WHEEZING Calcium Chloride Confirm 10/18/24 13:06 Calcium Chloride 100 Mg/Ml 10ml Inj. Administered 10/18/24 13:07 Dose 1,000 mg .ROUTE .STK-MED ONE Calcium Gluconate Confirm 10/18/24 13:01 Calcium Gluconate 1000 Mg/10 Ml Vial Administered 10/18/24 13:02 Dose 1,000 mg IV .STK-MED ONE Sodium Chloride Confirm 10/18/24 12:21 Sodium Chloride 0.9% 1000 Ml Administered 10/18/24 12:22 Dose 1,000 mls @ ud .ROUTE .STK-MED ONE Sodium Chloride 1,000 mls @ 999 mls/hr 10/18/24 12:25 10/18/24 13:55 Sodium Chloride 0.9% 1000 Ml IV 10/18/24 13:25 Infused .Q1H1M STA Infusion Piperacillin Sod/Tazobactam 100 mls @ 200 mls/hr 10/18/24 12:44 10/18/24 14:58 Sod 4.5 gm/ Sodium Chloride IV 10/18/24 13:13 Infused STAT STA Infusion INSULIN REGULAR IN 0.9 % NACL 100 unit in 100 mls @ 7.04 mls/hr 10/18/24 12:52 10/20/24 22:04 Myxredlin 100 Unit/100 Ml Bag IV 11/17/24 12:51 0.01 unit/kg/hr .[id number] PRN 1 mls/hr HYPERGLYCEMIA Titration Protocol 0.1 UNIT/KG/HR Calcium Chloride 1,000 mg/ 110 mls @ 440 mls/hr 10/18/24 13:15 10/18/24 13:36 Sodium Chloride IV 10/18/24 13:29 Infused ONCE ONE Infusion Sodium Chloride Confirm 10/18/24 13:12 Sodium Chloride 0.9% Administered 10/18/24 13:13 Dose 100 mls @ ud .ROUTE .STK-MED ONE Sodium Chloride 1,000 mls @ 999 mls/hr 10/18/24 13:33 10/18/24 14:58 Sodium Chloride 0.9% 1000 Ml IV 10/18/24 14:33 Infused .Q1H1M STA Infusion Sodium Chloride Confirm 10/18/24 14:01 Sodium Chloride 0.9% Administered 10/18/24 14:02 Dose 100 mls @ ud .ROUTE .STK-MED ONE Sodium Chloride Confirm 10/18/24 14:18 Sodium Chloride 0.9% 1000 Ml Administered 10/18/24 14:19 Dose 1,000 mls @ ud .ROUTE .STK-MED ONE Sodium Chloride 1,000 mls @ 100 mls/hr 10/18/24 14:45 10/18/24 14:44 Sodium Chloride 0.9% 1000 Ml IV 11/17/24 14:44 100 mls/hr .Q10H YANN Administration Piperacillin Sod/Tazobactam 100 mls @ 200 mls/hr 10/18/24 18:00 10/19/24 12:37 Sod 3.375 gm/ Sodium Chloride IV 10/21/24 17:59 200 mls/hr Q6HT YANN Administration Sodium Chloride 1,000 mls @ 150 mls/hr 10/18/24 17:30 10/19/24 13:42 Sodium Chloride 0.45% 1000 Ml IV 11/17/24 17:29 Not Given .Q6H40M YANN Potassium Chloride/Dextrose/Sod Cl Confirm 10/19/24 02:34 D5w/0.45ns W/ 20meq Kcl 1000 Ml Administered 10/19/24 02:35 Dose 1,000 mls @ ud IV .STK-MED ONE Potassium Chloride 20 meq in 100 mls @ 50 mls/hr 10/19/24 05:30 10/19/24 07:46 Potassium Chloride 20 Meq In Water 100ml IV 10/19/24 09:29 50 mls/hr Q2H YANN Administration Calcium Gluconate 1,000 mg/ 110 mls @ 220 mls/hr 10/20/24 14:30 10/20/24 14:32 Sodium Chloride IV 10/20/24 14:59 220 mls/hr ONCE ONE Administration Dextrose/Sodium Chloride Confirm 10/20/24 15:22 Dextrose 5% -0.45 Nacl 1000 Ml Administered 10/20/24 15:23 Dose 1,000 mls @ ud IV .STK-MED ONE Insulin Glargine 45 unit 10/18/24 17:30 10/19/24 08:02 Insulin Glargine 1 Unit SQ 11/17/24 17:29 Not Given Q24H YANN Insulin Human Lispro 0 unit 10/18/24 17:30 Insulin Lispro 1 Unit SQ 11/17/24 17:29 UD PRN Insulin Human Lispro 0 unit 10/20/24 11:07 Insulin Lispro 1 Unit SQ 11/19/24 11:06 UD PRN HYPERGLYCEMIA Piperacillin Sod/Tazobactam Sod Confirm 10/18/24 14:01 Piperacillin/Tazobactam Sodium 4.5 Gm Vial Administered 10/18/24 14:02 Dose 4.5 gm IV .STK-MED ONE Potassium Bicarbonate 50 meq 10/19/24 05:24 10/19/24 06:01 Potassium Bicarbonate 25 Meq Tab PO 10/19/24 05:25 50 meq STAT ONE Administration Potassium Chloride 50 meq 10/20/24 01:15 10/20/24 01:20 Potassium Chloride Tab 10 Meq Tab PO 10/20/24 01:16 50 meq STAT ONE Administration Sodium Bicarbonate 50 meq 10/18/24 12:52 10/18/24 12:58 Sodium Bicarbonate 1 Meq/Ml 50ml Syringe IV 10/18/24 12:53 50 meq STAT ONE Administration Sodium Bicarbonate Confirm 10/18/24 12:57 Sodium Bicarbonate 1 Meq/Ml 50ml Syringe Administered 10/18/24 12:58 Dose 50 meq IV .STK-MED ONE Assessment/Plan (1) DKA (diabetic ketoacidoses) Current Visit: Yes Status: Acute Qualifiers: Diabetes mellitus type: other specified (including NGUYEN) Diabetes mellitus complication detail: without coma Qualified Code(s): E13.10 - Other specified diabetes mellitus with ketoacidosis without coma Assessment & Plan: -Supported by glucose >492 mg/dL, anion gap acidosis, low serum bicarbonate, profound acidemia (ABG pH 7.06, VBG pH 6.98), elevated ketones >160, glucosuria >1000, elevated lactic acid. -Complicated by electrolyte derangements including hyperkalemia (K+ up to 6.1 POC) and CHERIE. -Admit to ICU -Continue insulin drip per protocol -Given 50meq of sodium bicarb in ED -Change fluids to 1/2 NS due to hyperkalemia -transition to D5 once glucose <250 mg/dL - per protocol orders placed -BMP/ABG g1q-Lzkaaq ABGs until acidosis resolves. -Consider bicarb if PH is less than/equal to 6.9 -Replace electrolytes as indicated; treat hyperkalemia if persistent >6 10/19/24: -Continue DKA protocol as ordered -Patient currently on insulin drip and D5 NS with electrolytes adjusted based on labs -insulin drip held this morning due to hypokalemia -Phos replaced with neutra phos x 2 - repeat lab in 4 hours -Continue IV insulin infusion until bicarbonate/CO2 improves (>18) despite gap closure, then transition to subcutaneous insulin per protocol - currently CO2 at 10 -ABG 10/20: -Co2 at 19 - insulin drip dcd per protocol -Continue basal insulin: Lantus per protocol -Initiate sliding scale for correction of hyperglycemia. -Monitor fingerstick blood glucose before meals and at bedtime; adjust regimen as needed. -Reinforce diabetic diet and ensure patient tolerates oral intake. -Daily metabolic panel to monitor electrolytes and bicarbonate until stable. -Patient education on insulin regimen, sick-day management, and signs/symptoms of DKA recurrence. -continue DKA protocol orders 10/21: -Patient initially had recurrence of anion gap metabolic acidosis yesterday, requiring resumption of insulin drip. -Acidosis now resolved, anion gap closed, electrolytes normalized, and glucose trending down appropriately. -Transitioned to basalbolus insulin regimen - started lantus back at 30 units due to hypoglycemia -Continue monitoring fingerstick glucose ACHS and at bedtime. -Continue diabetic diet and encourage hydration. -Endocrinology consultation at discharge -Diabetes education prior to discharge. Code(s): E11.10 - TYPE 2 DIABETES MELLITUS WITH KETOACIDOSIS WITHOUT COMA Generalized weakness -Persistent weakness despite metabolic resolution. -Patient agreeable to discharge to [facility] facility with physical therapy services. -PT/OT evaluation completed; continue supportive therapy while inpatient. -Case management working on insurance authorization; discharge pending approval. -Monitor daily progress; encourage out-of-bed activity with nursing staff. (2) Sepsis Current Visit: No Status: Acute Qualifiers: Sepsis type: sepsis due to unspecified organism Sepsis acute organ dysfunction status: with acute organ dysfunction Severe sepsis acute organ dysfunction type: acute renal failure Acute renal failure type: unspecified Severe sepsis shock status: without septic shock Qualified Code(s): A41.9 - Sepsis, unspecified organism; R65.20 - Severe sepsis without septic shock; N17.9 - Acute kidney failure, unspecified Assessment & Plan: -Meet criteria with HR, RR, and WBC at 24.7, elevated lactic -unknown source of infection -May be reactive secondary to DKA -2L IVF bolus given -Monitor lactate trend (initially 3.5 - 2.2). -possible urinary source given distended bladder and enlarged prostate. No clear pulmonary or intra-abdominal source identified on imaging - zosyn given in ED - will continue -CT abdomen/pelvis showed a markedly distended urinary bladder raising concern for urinary outlet obstruction versus neurogenic bladder, with chronic findings of enlarged prostate, chronic diverticulosis, non-obstructive left renal calculi, cholelithiasis, fatty liver, and generalized arteriosclerotic disease. Chest X-ray revealed chronic cardiopulmonary changes without acute process. -Blood cultures pending 10/19: -WBC level improving at 16.8 -No evidence of infection -no antibiotics indicated at present. -Continue daily clinical reassessment and repeat cultures only if new fever or hemodynamic instability 10/20: - WBC improved at 13.3 10/21: -WBC now wnl at 8.3- no indication of infection - no need for abx (3) Bladder distention Current Visit: Yes Status: Acute Assessment & Plan: -noted on CT, place torres for accurate I&O and urinary retention 10/20: -DC torres with trial void/PVR 10/21: -Successful trial void- continue to monitor for retention -accurate I&Os Code(s): N32.89 - OTHER SPECIFIED DISORDERS OF BLADDER (4) Recurrent falls Current Visit: Yes Status: Acute Assessment & Plan: -Low back pain post-fall; no acute fracture noted on available imaging, though further spinal evaluation may be warranted. -see weakness for plan Code(s): R29.6 - REPEATED FALLS (5) Diabetes mellitus Current Visit: Yes Status: Acute Assessment & Plan: -see DKA above -check A1c 10/19: -A1c 5.36 10/21: -Lantus dose reduced to 30 units daily due to hypoglycemic episodes-will adjust accordingly with A1c also noted at 5.36- current DKA episode secondary to patient not taking any diabetic meds for a week as he reported he was instructed to do. Normally patient is very compliant with meds. Code(s): E11.9 - TYPE 2 DIABETES MELLITUS WITHOUT COMPLICATIONS (6) CHERIE (acute kidney injury) Current Visit: Yes Status: Acute Assessment & Plan: -Optimize volume status with IV fluids. -unknown baseline -Monitor renal function and urine output. -Avoid nephrotoxic medications. 10/19: -creat now at 1.07- resolved -continue to monitor CMP daily 10/20: -creat at 0.70 -continue to monitor renal/lytes 10/21: -CHERIE resolved- creat at 0.66 Code(s): N17.9 - ACUTE KIDNEY FAILURE, UNSPECIFIED (7) BPH (benign prostatic hyperplasia) Current Visit: Yes Status: Acute Assessment & Plan: -shown on CT- FC placed for urinary retention- trial void in 24-48 hours -may need urology OP eval pending results -flomax 10/20: -DC torres Code(s): N40.0 - BENIGN PROSTATIC HYPERPLASIA WITHOUT LOWER URINRY TRACT SYMP (8) HTN (hypertension) Current Visit: Yes Status: Acute Assessment & Plan: -stable - continue home meds Code(s): I10 - ESSENTIAL (PRIMARY) HYPERTENSION (9) GERD (gastroesophageal reflux disease) Current Visit: Yes Status: Acute Assessment & Plan: -Protonix Code(s): K21.9 - GASTRO-ESOPHAGEAL REFLUX DISEASE WITHOUT ESOPHAGITIS (10) Hyperkalemia Current Visit: No Status: Acute Assessment & Plan: -Tele -monitor and replenish per DKA protocol 10/20: -Resolved with potassium wnl at 4.3 VTE: lovenox PPI: protonix Dispo: 2-3 days Code status: Critical care services were provided for this patient due to imminent risk of life-threatening deterioration secondary to severe diabetic ketoacidosis. The patient required continuous bedside assessment, aggressive IV fluid resuscitation, initiation and titration of insulin infusion, electrolyte management with high risk of rapid shifts, consideration of bicarbonate therapy, interpretation of serial arterial/venous blood gases, frequent review of laboratory and imaging results, and coordination of care with nursing and specialty services. Interventions were necessary to prevent cardiovascular collapse, arrhythmia, respiratory failure, and . Total critical care time 45 minutes, exclusive of separately billable procedures. Code(s): E11.10 - TYPE 2 DIABETES MELLITUS WITH KETOACIDOSIS WITHOUT COMA (2) Sepsis Current Visit: No Status: Acute Qualifiers: Sepsis type: sepsis due to unspecified organism Sepsis acute organ dysfunction status: with acute organ dysfunction Severe sepsis acute organ dysfunction type: acute renal failure Acute renal failure type: unspecified Severe sepsis shock status: without septic shock Qualified Code(s): A41.9 - Sepsis, unspecified organism; R65.20 - Severe sepsis without septic shock; N17.9 - Acute kidney failure, unspecified (3) Bladder distention Current Visit: Yes Status: Acute Code(s): N32.89 - OTHER SPECIFIED DISORDERS OF BLADDER (4) Recurrent falls Current Visit: Yes Status: Acute Code(s): R29.6 - REPEATED FALLS (5) Diabetes mellitus Current Visit: Yes Status: Acute Code(s): E11.9 - TYPE 2 DIABETES MELLITUS WITHOUT COMPLICATIONS (6) CHERIE (acute kidney injury) Current Visit: Yes Status: Acute Code(s): N17.9 - ACUTE KIDNEY FAILURE, UNSPECIFIED (7) BPH (benign prostatic hyperplasia) Current Visit: Yes Status: Acute Code(s): N40.0 - BENIGN PROSTATIC HYPERPLASIA WITHOUT LOWER URINRY TRACT SYMP (8) HTN (hypertension) Current Visit: Yes Status: Acute Code(s): I10 - ESSENTIAL (PRIMARY) HYPERTENSION (9) GERD (gastroesophageal reflux disease) Current Visit: Yes Status: Acute Code(s): K21.9 - GASTRO-ESOPHAGEAL REFLUX DISEASE WITHOUT ESOPHAGITIS (10) Hyperkalemia Current Visit: No Status: Acute Code(s): E87.5 - HYPERKALEMIA (11) Generalized weakness Current Visit: Yes Status: Acute Code(s): R53.1 - WEAKNESS
[2024-10-21 07:56] LABS: Calcium 8.6 mg/dL (8.4-10.2); Carbon Dioxide 22.0 mmol/L (22-30); Creatinine 1 0.66 mg/dL (0.66-1.25); EST GLOMERULAR FILTRATION RATE 100.9 ML/MIN; Glucose 153.0 mg/dL (74-106); Potassium 3.6 mmol/L (3.5-5.1)
[2024-10-21] MEDS: TYLENOL 325 MG PO PRN (10:20)
[2024-10-21 11:59] LABS: Calcium 8.3 mg/dL (8.4-10.2); Carbon Dioxide 22.0 mmol/L (22-30); Creatinine 1 0.63 mg/dL (0.66-1.25); EST GLOMERULAR FILTRATION RATE 102.3 ML/MIN; Glucose 184.0 mg/dL (74-106); Potassium 3.4 mmol/L (3.5-5.1)
[2024-10-21] MEDS: HUMALOG SQ PRN (12:45)
[2024-10-21 15:59] LABS: Calcium 8.6 mg/dL (8.4-10.2); Carbon Dioxide 22.0 mmol/L (22-30); Creatinine 1 0.63 mg/dL (0.66-1.25); EST GLOMERULAR FILTRATION RATE 102.3 ML/MIN; Glucose 265.0 mg/dL (74-106); Potassium 3.4 mmol/L (3.5-5.1)
[2024-10-21] MEDS: Klor Con PO ONE (17:38)
[2024-10-21 20:04] LABS: Calcium 8.6 mg/dL (8.4-10.2); Carbon Dioxide 25.0 mmol/L (22-30); Creatinine 1 0.72 mg/dL (0.66-1.25); EST GLOMERULAR FILTRATION RATE 98.3 ML/MIN; Glucose 196.0 mg/dL (74-106); Potassium 3.5 mmol/L (3.5-5.1)
[2024-10-22] MEDS: D50W 50 ml Abboject IV ONE (00:10)
[2024-10-22 04:12] VITALS: TEMP 97.8
[2024-10-22 05:09] LABS: BASOPHIL % 0.8 % (0.2-1.2); Basophil (Absolute #) 0.05 x10^3/uL (0.01-0.08); Eosinophil (Absolute #) 0.21 x10^3/uL (0.04-0.54); Hematocrit 36.9 % (40.1-51.0); Hemoglobin 11.9 g/dL (13.7-17.5); IMMATURE GRAN # 0.03 x10^3u/L (0.001-0.031); IMMATURE GRAN % 0.5 % (0.001-0.429); Lymphocyte (Absolute #) 1.37 x10^3/uL (1.32-3.57); Mean Corpuscular Hemoglobin 25.7 pg (25.7-32.2); Mean Corpuscular Hgb Concent. 32.2 g/dL (32.3-36.5); Monocyte (Absolute #) 0.60 x10^3/uL (0.30-0.82); NUCLEATED RBC # 0.00 x10^3u/L (0.00-0.012); NUCLEATED RBC % 0.0 % (0.00-0.2); Platelet Count 205 x10^3/uL (163-337); Red Blood Count 4.63 x10^6/uL (4.63-6.08); White Blood Count 6.2 x10^3/uL (4.23-9.07)
--- NOTE | 2024-10-22 05:40 | PCM.NOTE ---
Date and Time: 10/22/24 0538 Subjective Assessment: is a 69 year old male with a pmhx of HLD, HTN, GERD, and DMII who presented to ED 10/18/24 with complaints of weakness, nausea, and vomiting since yesterday. He reports falling out of bed last Tuesday and has recently been having an unsteady gait which prompted him to seek medical attention at [facility] where he was recently admitted and discharged yesterday. He is a poor historian regarding his medical regimen, stating he was recently hospitalized at a [facility] facility for a stroke workup but is unclear about the outcome. He reports that he was instructed not to take his insulin and has not taken any since last Tuesday. We will obtain these records. A home health aide who evaluated him earlier today found him clinically unfit to remain alone at home and noted severe hyperglycemia, prompting EMS activation. On arrival, the patient also endorsed low back pain following his recent fall. Upon arrival to ED patient was tachycardic though otherwise hemodynamically stable. Lab findings remarkable for WBC , serum sodium 147 , potassium 5.2 , chloride 115 , BUN 35, and creatinine 1.49. Glucose was critically high at 492 on admission, later trending down to 347 mg/dL after intervention. Serum bicarbonate was severely depressed (<5 mmol/L) with an anion gap metabolic acidosis. Arterial blood gases showed severe metabolic acidosis with partial respiratory compensation. Lactic acid was elevated at 3.5 on admission, later improving to 2.2. Urine studies were notable for glucosuria >1000 and ketones >160, confirming ketoacidosis. Magnesium was elevated at 2.9. Respiratory viral panel was negative, reducing concern for viral trigger. Imaging revealed multiple acute and chronic findings. CT head demonstrated non-acute senile changes without acute intracranial process, reducing immediate concern for traumatic bleed in the context of falls and possible anticoagulation. CT abdomen/pelvis showed a markedly distended urinary bladder raising concern for urinary outlet obstruction versus neurogenic bladder, with chronic findings of enlarged prostate, chronic diverticulosis, non-obstructive left renal calculi, cholelithiasis, fatty liver, and generalized arteriosclerotic disease. Chest X- ray revealed chronic cardiopulmonary changes without acute process. Patient started on insulin drip, given sodium bicarb 50meq, IVF bolus of 2L, Zosyn, proventil, and calcium chloride. Admitted for DKA. 10/19/24: Met with patient bedside. Patient reports feeling significantly better compared to admission. Denies ongoing nausea, vomiting, abdominal pain, or shortness of breath. States energy has improved and appetite is returning. No chest pain, palpitations, or dizziness. Patient aware insulin drip was previously stopped due to hypokalemia, which has since resolved. Expresses relief that blood sugars are under better control. Denies fever,cough, abdominal pain, HENDERSON, dizziness, N/V/D. 10/20/24: Patient seen at bedside. Reports overall improvement since admission with resolution of nausea and abdominal discomfort. Endorses continued generalized weakness and fatigue but is tolerating oral intake well without difficulty. Denies chest pain, shortness of breath, or abdominal pain. Patient is agreeable to discharge to a alf facility for rehabilitation once medically stable; authorization process is pending. Edit 10/20/24: The patient was stable this morning following resolution of DKA and transition to subcutaneous basal/bolus insulin. Over the course of the day, he experienced a large episode of diarrhea and had previously received two doses of Neutra- Phos. Repeat labs revealed potassium 6.2, CO2 10, chloride 109, glucose 321, and an anion gap of 24.9, raising concern for possible recurrence of ketosis after initially being closed. EKG remained normal and the patient was maintained on continuous telemetry. Calcium gluconate was administered for cardiac stabilization, and he subsequently received 12 units of IV insulin when his glucose was 300. Repeat BMP now shows resolution of hyperkalemia with potassium improved to 4.5. Phosphorus level has risen to 2.6, which is within normal limits at present. CO2 remains low at 12 and GAP at 20.9 blood glucose level at 251. Given the recurrence of anion gap metabolic acidosis with hyperglycemia, the patient has been placed back on the insulin drip with DKA protocol resumed. 10/21/24: Patient reports feeling much improved today with resolution of prior nausea, weakness, and diarrhea. Denies chest pain, palpitations, or shortness of breath. Tolerating oral intake without difficulty. Notes improved energy and appetite. Aware of and agreeable with transition to basalbolus insulin regimen. Labs reviewed with patient showing improvement with resolution of acidosis and no electrolyte abnormalities noted. Plan for discharge to SNF for rehab when medically stable. Objective Data Vital Signs: Vital Signs - 24 hr Temp Pulse Resp BP Pulse Ox 10/22/24 05:00 80 18 151/74 96 10/22/24 04:00 97.8 F 72 18 157/76 94 L 10/22/24 03:00 75 16 151/84 95 10/22/24 02:00 68 11 L 161/84 94 L 10/22/24 01:00 73 18 145/88 95 10/22/24 00:01 80 10/22/24 00:00 97.5 F 80 13 148/78 98 10/21/24 23:00 73 17 167/99 96 10/21/24 22:00 73 18 159/80 97 10/21/24 21:00 67 20 155/82 98 10/21/24 20:00 97.1 F 72 20 152/76 97 10/21/24 19:00 72 23 161/75 98 10/21/24 18:00 76 20 147/75 10/21/24 17:50 72 19 10/21/24 17:40 73 18 10/21/24 17:30 71 24 10/21/24 17:20 79 16 10/21/24 17:10 80 18 10/21/24 17:05 76 22 10/21/24 16:00 97.1 F 74 25 H 157/92 10/21/24 15:00 97.8 F 75 172/74 10/21/24 14:00 77 24 153/75 10/21/24 13:00 80 20 147/67 10/21/24 12:02 74 23 149/67 10/21/24 12:00 71 10/21/24 11:00 74 21 140/69 10/21/24 10:00 71 20 147/67 10/21/24 09:01 77 23 158/77 10/21/24 08:00 98.5 F 67 15 156/87 96 10/21/24 07:00 71 15 155/84 98 10/21/24 06:00 78 17 159/95 98 Pain Assessment - Last Documented Pain Intensity 0 Pain Scale Used 0-10 Pain Scale Intake and Output: Intake & Output 10/19/24 10/20/24 10/21/24 10/22/24 11:59 11:59 11:59 11:59 Intake Total 3250 8068 3643 1051 Output Total 4505 2590 2950 1250 Balance -1255 5478 693 -199 Weight 66.6 kg 66.6 kg Lab Results: Lab Results-Last 24 Hours 10/21/24 10/21/24 10/21/24 Range/Units 06:09 06:55 07:35 WBC (4.23-9.07) x10^3/uL RBC (4.63-6.08) x10^6/uL Hgb (13.7-17.5) g/dL Hct (40.1-51.0) % MCV (79.0-92.2) fL MCH (25.7-32.2) pg MCHC (32.3-36.5) g/dL RDW (11.6-14.4) % Plt Count (163-337) x10^3/uL MPV (9.4-12.4) fL Gran % (34.0-67.9) % Immature Gran % (Auto) (0.001-0.429) % Nucleat RBC Rel Count (0.00-0.2) % Eos # (Auto) (0.04-0.54) x10^3/uL Immature Gran # (Auto) (0.001-0.031) x10^3u/L Absolute Lymphs (auto) (1.32-3.57) x10^3/uL Absolute Monos (auto) (0.30-0.82) x10^3/uL Absolute Nucleated RBC (0.00-0.012) x10^3u/L Lymphocytes % (21.8-53.1) % Monocytes % (5.3-12.2) % Eosinophils % (0.8-7.0) % Basophils % (0.2-1.2) % Absolute Granulocytes (1.78-5.38) x10^3/uL Basophils # (0.01-0.08) x10^3/uL Sodium 136 (135-145) mmol/L Potassium 3.6 (3.5-5.1) mmol/L Chloride 107 (98-107) mmol/L Carbon Dioxide 22 (22-30) mmol/L Anion Gap 10.5 (5-15) MEQ/L BUN 8 L (9-20) mg/dL Creatinine 0.66 (0.66-1.25) mg/dL Estimated GFR 100.9 ML/MIN Glucose 153 H (74-106) mg/dL POC Glucometer 162 H 154 H (74 to 106) mg/dL Calcium 8.6 (8.4-10.2) mg/dL 10/21/24 10/21/24 10/21/24 Range/Units 08:04 09:27 11:35 WBC (4.23-9.07) x10^3/uL RBC (4.63-6.08) x10^6/uL Hgb (13.7-17.5) g/dL Hct (40.1-51.0) % MCV (79.0-92.2) fL MCH (25.7-32.2) pg MCHC (32.3-36.5) g/dL RDW (11.6-14.4) % Plt Count (163-337) x10^3/uL MPV (9.4-12.4) fL Gran % (34.0-67.9) % Immature Gran % (Auto) (0.001-0.429) % Nucleat RBC Rel Count (0.00-0.2) % Eos # (Auto) (0.04-0.54) x10^3/uL Immature Gran # (Auto) (0.001-0.031) x10^3u/L Absolute Lymphs (auto) (1.32-3.57) x10^3/uL Absolute Monos (auto) (0.30-0.82) x10^3/uL Absolute Nucleated RBC (0.00-0.012) x10^3u/L Lymphocytes % (21.8-53.1) % Monocytes % (5.3-12.2) % Eosinophils % (0.8-7.0) % Basophils % (0.2-1.2) % Absolute Granulocytes (1.78-5.38) x10^3/uL Basophils # (0.01-0.08) x10^3/uL Sodium (135-145) mmol/L Potassium (3.5-5.1) mmol/L Chloride (98-107) mmol/L Carbon Dioxide (22-30) mmol/L Anion Gap (5-15) MEQ/L BUN (9-20) mg/dL Creatinine (0.66-1.25) mg/dL Estimated GFR ML/MIN Glucose (74-106) mg/dL POC Glucometer 150 H 107 H 189 H (74 to 106) mg/dL Calcium (8.4-10.2) mg/dL 10/21/24 10/21/24 10/21/24 Range/Units 11:40 12:11 14:25 WBC (4.23-9.07) x10^3/uL RBC (4.63-6.08) x10^6/uL Hgb (13.7-17.5) g/dL Hct (40.1-51.0) % MCV (79.0-92.2) fL MCH (25.7-32.2) pg MCHC (32.3-36.5) g/dL RDW (11.6-14.4) % Plt Count (163-337) x10^3/uL MPV (9.4-12.4) fL Gran % (34.0-67.9) % Immature Gran % (Auto) (0.001-0.429) % Nucleat RBC Rel Count (0.00-0.2) % Eos # (Auto) (0.04-0.54) x10^3/uL Immature Gran # (Auto) (0.001-0.031) x10^3u/L Absolute Lymphs (auto) (1.32-3.57) x10^3/uL Absolute Monos (auto) (0.30-0.82) x10^3/uL Absolute Nucleated RBC (0.00-0.012) x10^3u/L Lymphocytes % (21.8-53.1) % Monocytes % (5.3-12.2) % Eosinophils % (0.8-7.0) % Basophils % (0.2-1.2) % Absolute Granulocytes (1.78-5.38) x10^3/uL Basophils # (0.01-0.08) x10^3/uL Sodium 135 (135-145) mmol/L Potassium 3.4 L (3.5-5.1) mmol/L Chloride 105 (98-107) mmol/L Carbon Dioxide 22 (22-30) mmol/L Anion Gap 10.7 (5-15) MEQ/L BUN 8 L (9-20) mg/dL Creatinine 0.63 L (0.66-1.25) mg/dL Estimated GFR 102.3 ML/MIN Glucose 184 H (74-106) mg/dL POC Glucometer 174 H 244 H (74 to 106) mg/dL Calcium 8.3 L (8.4-10.2) mg/dL 10/21/24 10/21/24 10/21/24 Range/Units 15:35 16:53 19:45 WBC (4.23-9.07) x10^3/uL RBC (4.63-6.08) x10^6/uL Hgb (13.7-17.5) g/dL Hct (40.1-51.0) % MCV (79.0-92.2) fL MCH (25.7-32.2) pg MCHC (32.3-36.5) g/dL RDW (11.6-14.4) % Plt Count (163-337) x10^3/uL MPV (9.4-12.4) fL Gran % (34.0-67.9) % Immature Gran % (Auto) (0.001-0.429) % Nucleat RBC Rel Count (0.00-0.2) % Eos # (Auto) (0.04-0.54) x10^3/uL Immature Gran # (Auto) (0.001-0.031) x10^3u/L Absolute Lymphs (auto) (1.32-3.57) x10^3/uL Absolute Monos (auto) (0.30-0.82) x10^3/uL Absolute Nucleated RBC (0.00-0.012) x10^3u/L Lymphocytes % (21.8-53.1) % Monocytes % (5.3-12.2) % Eosinophils % (0.8-7.0) % Basophils % (0.2-1.2) % Absolute Granulocytes (1.78-5.38) x10^3/uL Basophils # (0.01-0.08) x10^3/uL Sodium 133 L 136 (135-145) mmol/L Potassium 3.4 L 3.5 (3.5-5.1) mmol/L Chloride 105 104 (98-107) mmol/L Carbon Dioxide 22 25 (22-30) mmol/L Anion Gap 10.1 10.6 (5-15) MEQ/L BUN 11 11 (9-20) mg/dL Creatinine 0.63 L 0.72 (0.66-1.25) mg/dL Estimated GFR 102.3 98.3 ML/MIN Glucose 265 H 196 H (74-106) mg/dL POC Glucometer 190 H (74 to 106) mg/dL Calcium 8.6 8.6 (8.4-10.2) mg/dL 10/21/24 10/21/24 10/21/24 Range/Units 19:47 21:57 23:54 WBC (4.23-9.07) x10^3/uL RBC (4.63-6.08) x10^6/uL Hgb (13.7-17.5) g/dL Hct (40.1-51.0) % MCV (79.0-92.2) fL MCH (25.7-32.2) pg MCHC (32.3-36.5) g/dL RDW (11.6-14.4) % Plt Count (163-337) x10^3/uL MPV (9.4-12.4) fL Gran % (34.0-67.9) % Immature Gran % (Auto) (0.001-0.429) % Nucleat RBC Rel Count (0.00-0.2) % Eos # (Auto) (0.04-0.54) x10^3/uL Immature Gran # (Auto) (0.001-0.031) x10^3u/L Absolute Lymphs (auto) (1.32-3.57) x10^3/uL Absolute Monos (auto) (0.30-0.82) x10^3/uL Absolute Nucleated RBC (0.00-0.012) x10^3u/L Lymphocytes % (21.8-53.1) % Monocytes % (5.3-12.2) % Eosinophils % (0.8-7.0) % Basophils % (0.2-1.2) % Absolute Granulocytes (1.78-5.38) x10^3/uL Basophils # (0.01-0.08) x10^3/uL Sodium (135-145) mmol/L Potassium (3.5-5.1) mmol/L Chloride (98-107) mmol/L Carbon Dioxide (22-30) mmol/L Anion Gap (5-15) MEQ/L BUN (9-20) mg/dL Creatinine (0.66-1.25) mg/dL Estimated GFR ML/MIN Glucose (74-106) mg/dL POC Glucometer 200 H 95 47 L* (74 to 106) mg/dL Calcium (8.4-10.2) mg/dL 10/21/24 10/22/24 10/22/24 Range/Units 23:57 00:00 00:42 WBC (4.23-9.07) x10^3/uL RBC (4.63-6.08) x10^6/uL Hgb (13.7-17.5) g/dL Hct (40.1-51.0) % MCV (79.0-92.2) fL MCH (25.7-32.2) pg MCHC (32.3-36.5) g/dL RDW (11.6-14.4) % Plt Count (163-337) x10^3/uL MPV (9.4-12.4) fL Gran % (34.0-67.9) % Immature Gran % (Auto) (0.001-0.429) % Nucleat RBC Rel Count (0.00-0.2) % Eos # (Auto) (0.04-0.54) x10^3/uL Immature Gran # (Auto) (0.001-0.031) x10^3u/L Absolute Lymphs (auto) (1.32-3.57) x10^3/uL Absolute Monos (auto) (0.30-0.82) x10^3/uL Absolute Nucleated RBC (0.00-0.012) x10^3u/L Lymphocytes % (21.8-53.1) % Monocytes % (5.3-12.2) % Eosinophils % (0.8-7.0) % Basophils % (0.2-1.2) % Absolute Granulocytes (1.78-5.38) x10^3/uL Basophils # (0.01-0.08) x10^3/uL Sodium (135-145) mmol/L Potassium (3.5-5.1) mmol/L Chloride (98-107) mmol/L Carbon Dioxide (22-30) mmol/L Anion Gap (5-15) MEQ/L BUN (9-20) mg/dL Creatinine (0.66-1.25) mg/dL Estimated GFR ML/MIN Glucose 46 L* (74-106) mg/dL POC Glucometer 49 L* 164 H (74 to 106) mg/dL Calcium (8.4-10.2) mg/dL 10/22/24 10/22/24 10/22/24 Range/Units 01:01 02:00 04:00 WBC (4.23-9.07) x10^3/uL RBC (4.63-6.08) x10^6/uL Hgb (13.7-17.5) g/dL Hct (40.1-51.0) % MCV (79.0-92.2) fL MCH (25.7-32.2) pg MCHC (32.3-36.5) g/dL RDW (11.6-14.4) % Plt Count (163-337) x10^3/uL MPV (9.4-12.4) fL Gran % (34.0-67.9) % Immature Gran % (Auto) (0.001-0.429) % Nucleat RBC Rel Count (0.00-0.2) % Eos # (Auto) (0.04-0.54) x10^3/uL Immature Gran # (Auto) (0.001-0.031) x10^3u/L Absolute Lymphs (auto) (1.32-3.57) x10^3/uL Absolute Monos (auto) (0.30-0.82) x10^3/uL Absolute Nucleated RBC (0.00-0.012) x10^3u/L Lymphocytes % (21.8-53.1) % Monocytes % (5.3-12.2) % Eosinophils % (0.8-7.0) % Basophils % (0.2-1.2) % Absolute Granulocytes (1.78-5.38) x10^3/uL Basophils # (0.01-0.08) x10^3/uL Sodium (135-145) mmol/L Potassium (3.5-5.1) mmol/L Chloride (98-107) mmol/L Carbon Dioxide (22-30) mmol/L Anion Gap (5-15) MEQ/L BUN (9-20) mg/dL Creatinine (0.66-1.25) mg/dL Estimated GFR ML/MIN Glucose (74-106) mg/dL POC Glucometer 157 H 141 H 107 H (74 to 106) mg/dL Calcium (8.4-10.2) mg/dL 10/22/24 Range/Units 04:13 WBC 6.2 (4.23-9.07) x10^3/uL RBC 4.63 (4.63-6.08) x10^6/uL Hgb 11.9 L (13.7-17.5) g/dL Hct 36.9 L (40.1-51.0) % MCV 79.7 (79.0-92.2) fL MCH 25.7 (25.7-32.2) pg MCHC 32.2 L (32.3-36.5) g/dL RDW 17.2 H (11.6-14.4) % Plt Count 205 (163-337) x10^3/uL MPV 10.8 (9.4-12.4) fL Gran % 63.4 (34.0-67.9) % Immature Gran % (Auto) 0.5 H (0.001-0.429) % Nucleat RBC Rel Count 0.0 (0.00-0.2) % Eos # (Auto) 0.21 (0.04-0.54) x10^3/uL Immature Gran # (Auto) 0.03 (0.001-0.031) x10^3u/L Absolute Lymphs (auto) 1.37 (1.32-3.57) x10^3/uL Absolute Monos (auto) 0.60 (0.30-0.82) x10^3/uL Absolute Nucleated RBC 0.00 (0.00-0.012) x10^3u/L Lymphocytes % 22.2 (21.8-53.1) % Monocytes % 9.7 (5.3-12.2) % Eosinophils % 3.4 (0.8-7.0) % Basophils % 0.8 (0.2-1.2) % Absolute Granulocytes 3.90 (1.78-5.38) x10^3/uL Basophils # 0.05 (0.01-0.08) x10^3/uL Sodium (135-145) mmol/L Potassium (3.5-5.1) mmol/L Chloride (98-107) mmol/L Carbon Dioxide (22-30) mmol/L Anion Gap (5-15) MEQ/L BUN (9-20) mg/dL Creatinine (0.66-1.25) mg/dL Estimated GFR ML/MIN Glucose (74-106) mg/dL POC Glucometer (74 to 106) mg/dL Calcium (8.4-10.2) mg/dL Medications: Medications Generic Name Dose Route Start Last Admin Trade Name Freq PRN Reason Stop Dose Admin Acetaminophen 650 mg 10/18/24 17:11 10/21/24 10:20 Acetaminophen 325 Mg Tablet PO 11/17/24 17:10 650 mg Q4H PRN PRN Administration PAIN, FEVER, HEADACHE Dextrose 50 ml 10/22/24 00:08 10/22/24 00:10 Dextrose 50%-Water 50 Ml Abboject IV 10/22/24 00:09 50 ml STAT ONE Administration Enoxaparin Sodium 40 mg 10/19/24 10:00 10/21/24 10:07 Enoxaparin Sodium 40 Mg/0.4 Ml Syringe SQ 11/18/24 09:59 40 mg DAILY YANN Administration Insulin Glargine 15 unit 10/22/24 06:00 Insulin Glargine 1 Unit SQ 11/21/24 05:59 BID YANN Insulin Human Lispro 0 unit 10/21/24 08:48 10/21/24 19:58 Insulin Lispro 1 Unit SQ 11/20/24 08:47 3 unit UD PRN Administration HYPERGLYCEMIA Ondansetron HCl 4 mg 10/18/24 17:11 Ondansetron Hcl 4 Mg/2 Ml Vial IV 11/17/24 17:10 Q6H PRN PRN NAUSEA/VOMITING Potassium Chloride 40 meq 10/21/24 17:20 10/21/24 17:38 Potassium Chloride Tab 10 Meq Tab PO 10/21/24 17:21 40 meq STAT ONE Administration Discontinued Medications Generic Name Dose Route Start Last Admin Trade Name Freq PRN Reason Stop Dose Admin Albuterol Sulfate 10 mg 10/18/24 12:53 10/18/24 13:10 Albuterol Sulfate 2.5 Mg/3 Ml Neb 10/18/24 12:54 10 mg STAT ONE Administration Albuterol Sulfate Confirm 10/18/24 13:00 Albuterol Sulfate 2.5 Mg/3 Ml Neb Administered 10/18/24 13:01 Dose 2.5 mg IH .STK-MED ONE Albuterol/Ipratropium 3 ml 10/18/24 17:11 Ipratropium/Albuterol Sulfate 3 Ml Ampul.Neb 11/17/24 18:59 Q6HRT PRN SHORTNESS OF BREATH/WHEEZING Calcium Chloride Confirm 10/18/24 13:06 Calcium Chloride 100 Mg/Ml 10ml Inj. Administered 10/18/24 13:07 Dose 1,000 mg .ROUTE .STK-MED ONE Calcium Gluconate Confirm 10/18/24 13:01 Calcium Gluconate 1000 Mg/10 Ml Vial Administered 10/18/24 13:02 Dose 1,000 mg IV .STK-MED ONE Dextrose 25 ml 10/19/24 22:03 10/20/24 23:22 Dextrose 50%-Water 50 Ml Abboject IV 11/18/24 22:02 25 ml PRN PRN Administration HYPOGLYCEMIA Sodium Chloride Confirm 10/18/24 12:21 Sodium Chloride 0.9% 1000 Ml Administered 10/18/24 12:22 Dose 1,000 mls @ ud .ROUTE .STK-MED ONE Sodium Chloride 1,000 mls @ 999 mls/hr 10/18/24 12:25 10/18/24 13:55 Sodium Chloride 0.9% 1000 Ml IV 10/18/24 13:25 Infused .Q1H1M STA Infusion Piperacillin Sod/Tazobactam 100 mls @ 200 mls/hr 10/18/24 12:44 10/18/24 14:58 Sod 4.5 gm/ Sodium Chloride IV 10/18/24 13:13 Infused STAT STA Infusion INSULIN REGULAR IN 0.9 % NACL 100 unit in 100 mls @ 7.04 mls/hr 10/18/24 12:52 10/21/24 07:24 Myxredlin 100 Unit/100 Ml Bag IV 11/17/24 12:51 0 unit/kg/hr .[id number] PRN 0 mls/hr HYPERGLYCEMIA Titration Protocol 0.1 UNIT/KG/HR Calcium Chloride 1,000 mg/ 110 mls @ 440 mls/hr 10/18/24 13:15 10/18/24 13:36 Sodium Chloride IV 10/18/24 13:29 Infused ONCE ONE Infusion Sodium Chloride Confirm 10/18/24 13:12 Sodium Chloride 0.9% Administered 10/18/24 13:13 Dose 100 mls @ ud .ROUTE .STK-MED ONE Sodium Chloride 1,000 mls @ 999 mls/hr 10/18/24 13:33 10/18/24 14:58 Sodium Chloride 0.9% 1000 Ml IV 10/18/24 14:33 Infused .Q1H1M STA Infusion Sodium Chloride Confirm 10/18/24 14:01 Sodium Chloride 0.9% Administered 10/18/24 14:02 Dose 100 mls @ ud .ROUTE .STK-MED ONE Sodium Chloride Confirm 10/18/24 14:18 Sodium Chloride 0.9% 1000 Ml Administered 10/18/24 14:19 Dose 1,000 mls @ ud .ROUTE .STK-MED ONE Sodium Chloride 1,000 mls @ 100 mls/hr 10/18/24 14:45 10/18/24 14:44 Sodium Chloride 0.9% 1000 Ml IV 11/17/24 14:44 100 mls/hr .Q10H YANN Administration Piperacillin Sod/Tazobactam 100 mls @ 200 mls/hr 10/18/24 18:00 10/19/24 12:37 Sod 3.375 gm/ Sodium Chloride IV 10/21/24 17:59 200 mls/hr Q6HT YANN Administration Sodium Chloride 1,000 mls @ 150 mls/hr 10/18/24 17:30 10/19/24 13:42 Sodium Chloride 0.45% 1000 Ml IV 11/17/24 17:29 Not Given .Q6H40M YANN Potassium Chloride/Dextrose/Sod Cl Confirm 10/19/24 02:34 D5w/0.45ns W/ 20meq Kcl 1000 Ml Administered 10/19/24 02:35 Dose 1,000 mls @ ud IV .STK-MED ONE Potassium Chloride 20 meq in 100 mls @ 50 mls/hr 10/19/24 05:30 10/19/24 07:46 Potassium Chloride 20 Meq In Water 100ml IV 10/19/24 09:29 50 mls/hr Q2H YANN Administration Potassium Chloride/Dextrose/Sod Cl 1,000 mls @ 150 mls/hr 10/18/24 20:00 10/21/24 03:15 D5w/0.45ns W/ 20meq Kcl 1000 Ml IV 11/17/24 19:59 Not Given .Q6H40M YANN Calcium Gluconate 1,000 mg/ 110 mls @ 220 mls/hr 10/20/24 14:30 10/20/24 14:32 Sodium Chloride IV 10/20/24 14:59 220 mls/hr ONCE ONE Administration Dextrose/Sodium Chloride 1,000 mls @ 150 mls/hr 10/20/24 15:15 10/21/24 03:15 Dextrose 5% -0.45 Nacl 1000 Ml IV 11/19/24 15:14 200 mls/hr .Q6H40M YANN Administration Dextrose/Sodium Chloride Confirm 10/20/24 15:22 Dextrose 5% -0.45 Nacl 1000 Ml Administered 10/20/24 15:23 Dose 1,000 mls @ ud IV .STK-MED ONE Insulin Glargine 45 unit 10/18/24 17:30 10/19/24 08:02 Insulin Glargine 1 Unit SQ 11/17/24 17:29 Not Given Q24H YANN Insulin Glargine 20 unit 10/20/24 11:07 10/20/24 11:40 Insulin Glargine 1 Unit SQ 11/19/24 11:06 20 unit QAM YANN Administration Insulin Glargine 30 unit 10/21/24 04:45 10/21/24 05:00 Insulin Glargine 1 Unit SQ 11/20/24 04:44 30 unit Q12H YANN Administration Insulin Glargine 30 unit 10/21/24 18:00 10/21/24 18:28 Insulin Glargine 1 Unit SQ 11/20/24 17:59 30 unit Q12H YANN Administration Insulin Human Lispro 0 unit 10/18/24 17:30 Insulin Lispro 1 Unit SQ 11/17/24 17:29 UD PRN Insulin Human Lispro 0 unit 10/20/24 11:07 Insulin Lispro 1 Unit SQ 11/19/24 11:06 UD PRN HYPERGLYCEMIA Insulin Human Lispro 0 unit 10/20/24 13:11 10/20/24 13:26 Insulin Lispro 1 Unit SQ 11/19/24 13:10 12 unit UD PRN Administration HYPERGLYCEMIA Piperacillin Sod/Tazobactam Sod Confirm 10/18/24 14:01 Piperacillin/Tazobactam Sodium 4.5 Gm Vial Administered 10/18/24 14:02 Dose 4.5 gm IV .STK-MED ONE Potassium Bicarbonate 50 meq 10/19/24 05:24 10/19/24 06:01 Potassium Bicarbonate 25 Meq Tab PO 10/19/24 05:25 50 meq STAT ONE Administration Potassium Chloride 50 meq 10/20/24 01:15 10/20/24 01:20 Potassium Chloride Tab 10 Meq Tab PO 10/20/24 01:16 50 meq STAT ONE Administration Sodium Bicarbonate 50 meq 10/18/24 12:52 10/18/24 12:58 Sodium Bicarbonate 1 Meq/Ml 50ml Syringe IV 10/18/24 12:53 50 meq STAT ONE Administration Sodium Bicarbonate Confirm 10/18/24 12:57 Sodium Bicarbonate 1 Meq/Ml 50ml Syringe Administered 10/18/24 12:58 Dose 50 meq IV .STK-MED ONE Assessment/Plan (1) DKA (diabetic ketoacidoses) Current Visit: Yes Status: Acute Qualifiers: Diabetes mellitus type: other specified (including NGUYEN) Diabetes mellitus complication detail: without coma Qualified Code(s): E13.10 - Other specified diabetes mellitus with ketoacidosis without coma Assessment & Plan: -Supported by glucose >492 mg/dL, anion gap acidosis, low serum bicarbonate, profound acidemia (ABG pH 7.06, VBG pH 6.98), elevated ketones >160, glucosuria >1000, elevated lactic acid. -Complicated by electrolyte derangements including hyperkalemia (K+ up to 6.1 POC) and CHERIE. -Admit to ICU -Continue insulin drip per protocol -Given 50meq of sodium bicarb in ED -Change fluids to 1/2 NS due to hyperkalemia -transition to D5 once glucose <250 mg/dL - per protocol orders placed -BMP/ABG [id number] ABGs until acidosis resolves. -Consider bicarb if PH is less than/equal to 6.9 -Replace electrolytes as indicated; treat hyperkalemia if persistent >6 10/19/24: -Continue DKA protocol as ordered -Patient currently on insulin drip and D5 NS with electrolytes adjusted based on labs -insulin drip held this morning due to hypokalemia -Phos replaced with neutra phos x 2 - repeat lab in 4 hours -Continue IV insulin infusion until bicarbonate/CO2 improves (>18) despite gap closure, then transition to subcutaneous insulin per protocol - currently CO2 at 10 -ABG 10/20: -Co2 at 19 - insulin drip dcd per protocol -Continue basal insulin: Lantus per protocol -Initiate sliding scale for correction of hyperglycemia. -Monitor fingerstick blood glucose before meals and at bedtime; adjust regimen as needed. -Reinforce diabetic diet and ensure patient tolerates oral intake. -Daily metabolic panel to monitor electrolytes and bicarbonate until stable. -Patient education on insulin regimen, sick-day management, and signs/symptoms of DKA recurrence. -continue DKA protocol orders 10/21: -Patient initially had recurrence of anion gap metabolic acidosis yesterday, requiring resumption of insulin drip. -Acidosis now resolved, anion gap closed, electrolytes normalized, and glucose trending down appropriately. -Transitioned to basalbolus insulin regimen - started lantus back at 30 units due to hypoglycemia -Continue monitoring fingerstick glucose ACHS and at bedtime. -Continue diabetic diet and encourage hydration. -Endocrinology consultation at discharge -Diabetes education prior to discharge. Code(s): E11.10 - TYPE 2 DIABETES MELLITUS WITH KETOACIDOSIS WITHOUT COMA Generalized weakness -Persistent weakness despite metabolic resolution. -Patient agreeable to discharge to alf facility with physical therapy services. -PT/OT evaluation completed; continue supportive therapy while inpatient. -Case management working on insurance authorization; discharge pending approval. -Monitor daily progress; encourage out-of-bed activity with nursing staff. (2) Sepsis Current Visit: No Status: Acute Qualifiers: Sepsis type: sepsis due to unspecified organism Sepsis acute organ dysfunction status: with acute organ dysfunction Severe sepsis acute organ dysfunction type: acute renal failure Acute renal failure type: unspecified Severe sepsis shock status: without septic shock Qualified Code(s): A41.9 - Sepsis, unspecified organism; R65.20 - Severe sepsis without septic shock; N17.9 - Acute kidney failure, unspecified Assessment & Plan: -Meet criteria with HR, RR, and WBC at 24.7, elevated lactic -unknown source of infection -May be reactive secondary to DKA -2L IVF bolus given -Monitor lactate trend (initially 3.5 - 2.2). -possible urinary source given distended bladder and enlarged prostate. No clear pulmonary or intra-abdominal source identified on imaging - zosyn given in ED - will continue -CT abdomen/pelvis showed a markedly distended urinary bladder raising concern for urinary outlet obstruction versus neurogenic bladder, with chronic findings of enlarged prostate, chronic diverticulosis, non-obstructive left renal calculi, cholelithiasis, fatty liver, and generalized arteriosclerotic disease. Chest X-ray revealed chronic cardiopulmonary changes without acute process. -Blood cultures pending 10/19: -WBC level improving at 16.8 -No evidence of infection -no antibiotics indicated at present. -Continue daily clinical reassessment and repeat cultures only if new fever or hemodynamic instability 10/20: - WBC improved at 13.3 10/21: -WBC now wnl at 8.3- no indication of infection - no need for abx (3) Bladder distention Current Visit: Yes Status: Acute Assessment & Plan: -noted on CT, place torres for accurate I&O and urinary retention 10/20: -DC torres with trial void/PVR 10/21: -Successful trial void- continue to monitor for retention -accurate I&Os Code(s): N32.89 - OTHER SPECIFIED DISORDERS OF BLADDER (4) Recurrent falls Current Visit: Yes Status: Acute Assessment & Plan: -Low back pain post-fall; no acute fracture noted on available imaging, though further spinal evaluation may be warranted. -see weakness for plan Code(s): R29.6 - REPEATED FALLS (5) Diabetes mellitus Current Visit: Yes Status: Acute Assessment & Plan: -see DKA above -check A1c 10/19: -A1c 5.36 10/21: -Lantus dose reduced to 30 units daily due to hypoglycemic episodes-will adjust accordingly with A1c also noted at 5.36- current DKA episode secondary to patient not taking any diabetic meds for a week as he reported he was instructed to do. Normally patient is very compliant with meds. Code(s): E11.9 - TYPE 2 DIABETES MELLITUS WITHOUT COMPLICATIONS (6) CHERIE (acute kidney injury) Current Visit: Yes Status: Acute Assessment & Plan: -Optimize volume status with IV fluids. -unknown baseline -Monitor renal function and urine output. -Avoid nephrotoxic medications. 10/19: -creat now at 1.07- resolved -continue to monitor CMP daily 10/20: -creat at 0.70 -continue to monitor renal/lytes 10/21: -CHERIE resolved- creat at 0.66 Code(s): N17.9 - ACUTE KIDNEY FAILURE, UNSPECIFIED (7) BPH (benign prostatic hyperplasia) Current Visit: Yes Status: Acute Assessment & Plan: -shown on CT- FC placed for urinary retention- trial void in 24-48 hours -may need urology OP eval pending results -flomax 10/20: -DC torres Code(s): N40.0 - BENIGN PROSTATIC HYPERPLASIA WITHOUT LOWER URINRY TRACT SYMP (8) HTN (hypertension) Current Visit: Yes Status: Acute Assessment & Plan: -stable - continue home meds Code(s): I10 - ESSENTIAL (PRIMARY) HYPERTENSION (9) GERD (gastroesophageal reflux disease) Current Visit: Yes Status: Acute Assessment & Plan: -Protonix Code(s): K21.9 - GASTRO-ESOPHAGEAL REFLUX DISEASE WITHOUT ESOPHAGITIS (10) Hyperkalemia Current Visit: No Status: Acute Assessment & Plan: -Tele -monitor and replenish per DKA protocol 10/20: -Resolved with potassium wnl at 4.3 VTE: lovenox PPI: protonix Dispo: 2-3 days Code status: Critical care services were provided for this patient due to imminent risk of life-threatening deterioration secondary to severe diabetic ketoacidosis. The patient required continuous bedside assessment, electrolyte management with high risk of rapid shifts, consideration of bicarbonate therapy, interpretation of serial arterial/venous blood gases, frequent review of laboratory and imaging results, and coordination of care with nursing and specialty services. Interventions were necessary to prevent cardiovascular collapse, arrhythmia, respiratory failure, and . Total critical care time 45 minutes, exclusive of separately billable procedures. Code(s): E11.10 - TYPE 2 DIABETES MELLITUS WITH KETOACIDOSIS WITHOUT COMA (2) Sepsis Current Visit: No Status: Acute Qualifiers: Sepsis type: sepsis due to unspecified organism Sepsis acute organ dysfunction status: with acute organ dysfunction Severe sepsis acute organ dysfunction type: acute renal failure Acute renal failure type: unspecified Severe sepsis shock status: without septic shock Qualified Code(s): A41.9 - Sepsis, unspecified organism; R65.20 - Severe sepsis without septic shock; N17.9 - Acute kidney failure, unspecified (3) Bladder distention Current Visit: Yes Status: Acute Code(s): N32.89 - OTHER SPECIFIED DISORDERS OF BLADDER (4) Recurrent falls Current Visit: Yes Status: Acute Code(s): R29.6 - REPEATED FALLS (5) Diabetes mellitus Current Visit: Yes Status: Acute Code(s): E11.9 - TYPE 2 DIABETES MELLITUS WITHOUT COMPLICATIONS (6) CHERIE (acute kidney injury) Current Visit: Yes Status: Acute Code(s): N17.9 - ACUTE KIDNEY FAILURE, UNSPECIFIED (7) BPH (benign prostatic hyperplasia) Current Visit: Yes Status: Acute Code(s): N40.0 - BENIGN PROSTATIC HYPERPLASIA WITHOUT LOWER URINRY TRACT SYMP (8) HTN (hypertension) Current Visit: Yes Status: Acute Code(s): I10 - ESSENTIAL (PRIMARY) HYPERTENSION (9) GERD (gastroesophageal reflux disease) Current Visit: Yes Status: Acute Code(s): K21.9 - GASTRO-ESOPHAGEAL REFLUX DISEASE WITHOUT ESOPHAGITIS (10) Hyperkalemia Current Visit: No Status: Acute Code(s): E87.5 - HYPERKALEMIA (11) Generalized weakness Current Visit: Yes Status: Acute Code(s): R53.1 - WEAKNESS
[2024-10-22 05:46] LABS: Calcium 8.9 mg/dL (8.4-10.2); Carbon Dioxide 26.0 mmol/L (22-30); Creatinine 1 0.64 mg/dL (0.66-1.25); EST GLOMERULAR FILTRATION RATE 101.8 ML/MIN; Glucose 94.0 mg/dL (74-106); Potassium 3.7 mmol/L (3.5-5.1); SGOT/AST 36.0 U/L (17-59); SGPT/ALT 35.0 U/L (0-50); Total Protein 5.9 g/dL (6.3-8.2)
[2024-10-22] MEDS: Lantus Insulin SQ SCH (06:08)
[2024-10-22 09:15] VITALS: O2SAT 93
[2024-10-22 10:06] VITALS: RESP 17
[2024-10-22 12:26] VITALS: PULSE 85
--- NOTE | 2024-10-22 12:38 | PCM.DS ---
Discharge Summary Date of Admission: 10/18/24 16:21 Date of Discharge: 10/22/24 Admitting Physician: LISETTE QUIROZ MD Primary Care Provider: MAXWELL CASAS Allergies Allergies No Known Drug Allergies Allergy (Verified 10/18/24 12:25) Hospital Summary - Hospital Course Hospital Course: Mr. Chawla is a 69-year-old male with a past medical history significant for hyperlipidemia, hypertension, gastroesophageal reflux disease, and type 2 diabetes mellitus who was admitted on 10/18/24 with weakness, nausea, vomiting, and poor oral intake following a recent fall and reported medication nonadherence after being told not to take insulin. He was found to be in diabetic ketoacidosis with severe metabolic acidosis (serum bicarbonate <5, anion gap metabolic acidosis, ABG pH 7.06), profound hyperglycemia (glucose 492 mg/dL), ketonuria >160, and associated acute kidney injury (creatinine 1.49, BUN 35). Initial potassium was elevated at 5.2, later peaking at 6.2 before correction. Lactate was 3.5, improving to 2.2 after fluids. WBC was initially elevated at 24.7, later normalizing without evidence of infection. Imaging revealed CT head with non-acute senile changes, CT abdomen/pelvis showing markedly distended bladder with enlarged prostate, diverticulosis, nephrolithiasis, fatty liver, and generalized arteriosclerosis. Chest X-ray demonstrated chronic cardiopulmonary changes without acute infiltrates. He was treated with IV fluids, insulin drip, electrolyte correction, and supportive care per DKA protocol. His course was complicated by recurrence of anion gap acidosis requiring resumption of insulin drip, but this subsequently resolved. He was successfully transitioned to subcutaneous insulin with improved glucose control. Renal function normalized (creatinine improved to 0.66). Watts catheter was trialed and discontinued with return of adequate voiding. No infectious source was identified, and sepsis was ruled out. Clinically, he has improved with resolution of nausea, vomiting, and abdominal pain, though he continues to report generalized weakness and is at high risk for recurrent falls. He is stable for discharge to a [facility] facility for rehabilitation, continued medical management, and close monitoring of diabetes and urinary function. I spent 35 minutes [id number] with the patient on the day of discharge performing discharge exam, discussing hospital stay and discharge instructions with patient and caregivers, preparation of discharge records, prescriptions & referral forms and addressing any questions/concerns the patient had as documented above. - Vitals & Intake/Output Vital Signs: Vital Signs Temperature 97.8 F 10/22/24 08:00 Pulse Rate 85 10/22/24 12:00 Respiratory Rate 17 10/22/24 12:00 Blood Pressure 148/74 10/22/24 12:00 O2 Sat by Pulse Oximetry 93 L 10/22/24 09:14 Intake & Output: Intake & Output 10/20/24 10/21/24 10/22/24 10/23/24 11:59 11:59 11:59 11:59 Intake Total 8043 3643 1291 Output Total 2594 2950 1550 Balance 5481 773 -954 Weight 66.6 kg - Lab Result Diagrams: 10/22/24 04:13 10/22/24 04:13 Lab Results-Last 24 Hrs: Lab Results-Last 24 Hours 10/21/24 10/21/24 10/21/24 Range/Units 14:25 15:35 16:53 WBC (4.23-9.07) x10^3/uL RBC (4.63-6.08) x10^6/uL Hgb (13.7-17.5) g/dL Hct (40.1-51.0) % MCV (79.0-92.2) fL MCH (25.7-32.2) pg MCHC (32.3-36.5) g/dL RDW (11.6-14.4) % Plt Count (163-337) x10^3/uL MPV (9.4-12.4) fL Gran % (34.0-67.9) % Immature Gran % (Auto) (0.001-0.429) % Nucleat RBC Rel Count (0.00-0.2) % Eos # (Auto) (0.04-0.54) x10^3/uL Immature Gran # (Auto) (0.001-0.031) x10^3u/L Absolute Lymphs (auto) (1.32-3.57) x10^3/uL Absolute Monos (auto) (0.30-0.82) x10^3/uL Absolute Nucleated RBC (0.00-0.012) x10^3u/L Lymphocytes % (21.8-53.1) % Monocytes % (5.3-12.2) % Eosinophils % (0.8-7.0) % Basophils % (0.2-1.2) % Absolute Granulocytes (1.78-5.38) x10^3/uL Basophils # (0.01-0.08) x10^3/uL Sodium 133 L (135-145) mmol/L Potassium 3.4 L (3.5-5.1) mmol/L Chloride 105 (98-107) mmol/L Carbon Dioxide 22 (22-30) mmol/L Anion Gap 10.1 (5-15) MEQ/L BUN 11 (9-20) mg/dL Creatinine 0.63 L (0.66-1.25) mg/dL Estimated GFR 102.3 ML/MIN Glucose 265 H (74-106) mg/dL POC Glucometer 244 H 190 H (74 to 106) mg/dL Calcium 8.6 (8.4-10.2) mg/dL Total Bilirubin (0.2-1.3) mg/dL AST (17-59) U/L ALT (0-50) U/L Alkaline Phosphatase (38-126) U/L Serum Total Protein (6.3-8.2) g/dL Albumin (3.5-5.0) g/dL 10/21/24 10/21/24 10/21/24 Range/Units 19:45 19:47 21:57 WBC (4.23-9.07) x10^3/uL RBC (4.63-6.08) x10^6/uL Hgb (13.7-17.5) g/dL Hct (40.1-51.0) % MCV (79.0-92.2) fL MCH (25.7-32.2) pg MCHC (32.3-36.5) g/dL RDW (11.6-14.4) % Plt Count (163-337) x10^3/uL MPV (9.4-12.4) fL Gran % (34.0-67.9) % Immature Gran % (Auto) (0.001-0.429) % Nucleat RBC Rel Count (0.00-0.2) % Eos # (Auto) (0.04-0.54) x10^3/uL Immature Gran # (Auto) (0.001-0.031) x10^3u/L Absolute Lymphs (auto) (1.32-3.57) x10^3/uL Absolute Monos (auto) (0.30-0.82) x10^3/uL Absolute Nucleated RBC (0.00-0.012) x10^3u/L Lymphocytes % (21.8-53.1) % Monocytes % (5.3-12.2) % Eosinophils % (0.8-7.0) % Basophils % (0.2-1.2) % Absolute Granulocytes (1.78-5.38) x10^3/uL Basophils # (0.01-0.08) x10^3/uL Sodium 136 (135-145) mmol/L Potassium 3.5 (3.5-5.1) mmol/L Chloride 104 (98-107) mmol/L Carbon Dioxide 25 (22-30) mmol/L Anion Gap 10.6 (5-15) MEQ/L BUN 11 (9-20) mg/dL Creatinine 0.72 (0.66-1.25) mg/dL Estimated GFR 98.3 ML/MIN Glucose 196 H (74-106) mg/dL POC Glucometer 200 H 95 (74 to 106) mg/dL Calcium 8.6 (8.4-10.2) mg/dL Total Bilirubin (0.2-1.3) mg/dL AST (17-59) U/L ALT (0-50) U/L Alkaline Phosphatase (38-126) U/L Serum Total Protein (6.3-8.2) g/dL Albumin (3.5-5.0) g/dL 10/21/24 10/21/24 10/22/24 Range/Units 23:54 23:57 00:00 WBC (4.23-9.07) x10^3/uL RBC (4.63-6.08) x10^6/uL Hgb (13.7-17.5) g/dL Hct (40.1-51.0) % MCV (79.0-92.2) fL MCH (25.7-32.2) pg MCHC (32.3-36.5) g/dL RDW (11.6-14.4) % Plt Count (163-337) x10^3/uL MPV (9.4-12.4) fL Gran % (34.0-67.9) % Immature Gran % (Auto) (0.001-0.429) % Nucleat RBC Rel Count (0.00-0.2) % Eos # (Auto) (0.04-0.54) x10^3/uL Immature Gran # (Auto) (0.001-0.031) x10^3u/L Absolute Lymphs (auto) (1.32-3.57) x10^3/uL Absolute Monos (auto) (0.30-0.82) x10^3/uL Absolute Nucleated RBC (0.00-0.012) x10^3u/L Lymphocytes % (21.8-53.1) % Monocytes % (5.3-12.2) % Eosinophils % (0.8-7.0) % Basophils % (0.2-1.2) % Absolute Granulocytes (1.78-5.38) x10^3/uL Basophils # (0.01-0.08) x10^3/uL Sodium (135-145) mmol/L Potassium (3.5-5.1) mmol/L Chloride (98-107) mmol/L Carbon Dioxide (22-30) mmol/L Anion Gap (5-15) MEQ/L BUN (9-20) mg/dL Creatinine (0.66-1.25) mg/dL Estimated GFR ML/MIN Glucose 46 L* (74-106) mg/dL POC Glucometer 47 L* 49 L* (74 to 106) mg/dL Calcium (8.4-10.2) mg/dL Total Bilirubin (0.2-1.3) mg/dL AST (17-59) U/L ALT (0-50) U/L Alkaline Phosphatase (38-126) U/L Serum Total Protein (6.3-8.2) g/dL Albumin (3.5-5.0) g/dL 10/22/24 10/22/24 10/22/24 Range/Units 00:42 01:01 02:00 WBC (4.23-9.07) x10^3/uL RBC (4.63-6.08) x10^6/uL Hgb (13.7-17.5) g/dL Hct (40.1-51.0) % MCV (79.0-92.2) fL MCH (25.7-32.2) pg MCHC (32.3-36.5) g/dL RDW (11.6-14.4) % Plt Count (163-337) x10^3/uL MPV (9.4-12.4) fL Gran % (34.0-67.9) % Immature Gran % (Auto) (0.001-0.429) % Nucleat RBC Rel Count (0.00-0.2) % Eos # (Auto) (0.04-0.54) x10^3/uL Immature Gran # (Auto) (0.001-0.031) x10^3u/L Absolute Lymphs (auto) (1.32-3.57) x10^3/uL Absolute Monos (auto) (0.30-0.82) x10^3/uL Absolute Nucleated RBC (0.00-0.012) x10^3u/L Lymphocytes % (21.8-53.1) % Monocytes % (5.3-12.2) % Eosinophils % (0.8-7.0) % Basophils % (0.2-1.2) % Absolute Granulocytes (1.78-5.38) x10^3/uL Basophils # (0.01-0.08) x10^3/uL Sodium (135-145) mmol/L Potassium (3.5-5.1) mmol/L Chloride (98-107) mmol/L Carbon Dioxide (22-30) mmol/L Anion Gap (5-15) MEQ/L BUN (9-20) mg/dL Creatinine (0.66-1.25) mg/dL Estimated GFR ML/MIN Glucose (74-106) mg/dL POC Glucometer 164 H 157 H 141 H (74 to 106) mg/dL Calcium (8.4-10.2) mg/dL Total Bilirubin (0.2-1.3) mg/dL AST (17-59) U/L ALT (0-50) U/L Alkaline Phosphatase (38-126) U/L Serum Total Protein (6.3-8.2) g/dL Albumin (3.5-5.0) g/dL 10/22/24 10/22/24 10/22/24 Range/Units 04:00 04:13 04:13 WBC 6.2 (4.23-9.07) x10^3/uL RBC 4.63 (4.63-6.08) x10^6/uL Hgb 11.9 L (13.7-17.5) g/dL Hct 36.9 L (40.1-51.0) % MCV 79.7 (79.0-92.2) fL MCH 25.7 (25.7-32.2) pg MCHC 32.2 L (32.3-36.5) g/dL RDW 17.2 H (11.6-14.4) % Plt Count 205 (163-337) x10^3/uL MPV 10.8 (9.4-12.4) fL Gran % 63.4 (34.0-67.9) % Immature Gran % (Auto) 0.5 H (0.001-0.429) % Nucleat RBC Rel Count 0.0 (0.00-0.2) % Eos # (Auto) 0.21 (0.04-0.54) x10^3/uL Immature Gran # (Auto) 0.03 (0.001-0.031) x10^3u/L Absolute Lymphs (auto) 1.37 (1.32-3.57) x10^3/uL Absolute Monos (auto) 0.60 (0.30-0.82) x10^3/uL Absolute Nucleated RBC 0.00 (0.00-0.012) x10^3u/L Lymphocytes % 22.2 (21.8-53.1) % Monocytes % 9.7 (5.3-12.2) % Eosinophils % 3.4 (0.8-7.0) % Basophils % 0.8 (0.2-1.2) % Absolute Granulocytes 3.90 (1.78-5.38) x10^3/uL Basophils # 0.05 (0.01-0.08) x10^3/uL Sodium 139 (135-145) mmol/L Potassium 3.7 (3.5-5.1) mmol/L Chloride 106 (98-107) mmol/L Carbon Dioxide 26 (22-30) mmol/L Anion Gap 10.5 (5-15) MEQ/L BUN 9 (9-20) mg/dL Creatinine 0.64 L (0.66-1.25) mg/dL Estimated GFR 101.8 ML/MIN Glucose 94 (74-106) mg/dL POC Glucometer 107 H (74 to 106) mg/dL Calcium 8.9 (8.4-10.2) mg/dL Total Bilirubin 0.50 (0.2-1.3) mg/dL AST 36 (17-59) U/L ALT 35 (0-50) U/L Alkaline Phosphatase 81 (38-126) U/L Serum Total Protein 5.9 L (6.3-8.2) g/dL Albumin 3.3 L (3.5-5.0) g/dL 10/22/24 10/22/24 Range/Units 06:01 10:31 WBC (4.23-9.07) x10^3/uL RBC (4.63-6.08) x10^6/uL Hgb (13.7-17.5) g/dL Hct (40.1-51.0) % MCV (79.0-92.2) fL MCH (25.7-32.2) pg MCHC (32.3-36.5) g/dL RDW (11.6-14.4) % Plt Count (163-337) x10^3/uL MPV (9.4-12.4) fL Gran % (34.0-67.9) % Immature Gran % (Auto) (0.001-0.429) % Nucleat RBC Rel Count (0.00-0.2) % Eos # (Auto) (0.04-0.54) x10^3/uL Immature Gran # (Auto) (0.001-0.031) x10^3u/L Absolute Lymphs (auto) (1.32-3.57) x10^3/uL Absolute Monos (auto) (0.30-0.82) x10^3/uL Absolute Nucleated RBC (0.00-0.012) x10^3u/L Lymphocytes % (21.8-53.1) % Monocytes % (5.3-12.2) % Eosinophils % (0.8-7.0) % Basophils % (0.2-1.2) % Absolute Granulocytes (1.78-5.38) x10^3/uL Basophils # (0.01-0.08) x10^3/uL Sodium (135-145) mmol/L Potassium (3.5-5.1) mmol/L Chloride (98-107) mmol/L Carbon Dioxide (22-30) mmol/L Anion Gap (5-15) MEQ/L BUN (9-20) mg/dL Creatinine (0.66-1.25) mg/dL Estimated GFR ML/MIN Glucose (74-106) mg/dL POC Glucometer 141 H 199 H (74 to 106) mg/dL Calcium (8.4-10.2) mg/dL Total Bilirubin (0.2-1.3) mg/dL AST (17-59) U/L ALT (0-50) U/L Alkaline Phosphatase (38-126) U/L Serum Total Protein (6.3-8.2) g/dL Albumin (3.5-5.0) g/dL Micro Results-Entire Visit: Microbiology 10/18/24 13:00 Blood Culture - Preliminary Blood 10/18/24 13:15 Blood Culture - Preliminary Blood Accuchecks Date 10/22/24 Date 10/22/24 Date 10/22/24 Date 10/22/24 Date 10/22/24 Date 10/22/24 Date 10/21/24 Date 10/21/24 Date 10/21/24 Date 10/21/24 Time 10:34 Time 06:01 Time 04:00 Time 02:00 Time 01:01 Time 00:42 Time 23:57 Time 23:54 Time 19:47 Time 16:55 - Procedures and Test Procedures and Tests throughout Hospitalization: Therapy Orders & Screens 10/18/24 13:11 Respiratory Therapy Assessment DAILY Comment: 10/18/24 17:29 Respiratory Therapy Assessment DAILY Comment: Diagnosis: DKA 10/20/24 13:30 EKG STAT Comment: Diagnosis: DKA EKG Reason: Other Discharge Exam General Appearance: no apparent distress Neurologic Exam: alert, oriented x 3, cooperative Eye Exam: PERRL Ears, Nose, Throat Exam: normal ENT inspection Neck Exam: normal inspection Respiratory Exam: normal breath sounds Cardiovascular Exam: regular rate/rhythm, normal heart sounds Gastrointestinal/Abdomen Exam: soft, normal bowel sounds Male Genitalia Exam: deferred Rectal Exam: deferred Back Exam: normal inspection Extremity Exam: normal inspection Skin Exam: normal color Final Diagnosis/Problem List - Final Discharge Diagnosis/Problem (1) DKA (diabetic ketoacidoses) Current Visit: Yes Status: Acute Assessment & Plan: Transitioned to Lantus 15 units BID with moderate-dose sliding scale insulin. Nursing staff at SNF to monitor blood glucose before meals and at bedtime with frequent checks and notify [place] physician for dose adjustment as needed. Follow-up with Endocrinology (Dr. West) arranged. Reinforce diabetic diet, hydration, and sick-day management. Code(s): E11.10 - TYPE 2 DIABETES MELLITUS WITH KETOACIDOSIS WITHOUT COMA (2) Sepsis Current Visit: No Status: Acute Assessment & Plan: initially suspected, not confirmed. Blood cultures negative. No antibiotics required at discharge. Continue clinical monitoring at SNF; repeat cultures or initiate antimicrobials only if new fever, leukocytosis, or hemodynamic instability develops. (3) Bladder distention Current Visit: Yes Status: Acute Assessment & Plan: Previously required Watts catheter; now voiding independently. Continue Flomax. Monitor post-void residuals and urinary function. Follow-up with Urology recommended. Code(s): N32.89 - OTHER SPECIFIED DISORDERS OF BLADDER (4) Recurrent falls Current Visit: Yes Status: Acute Assessment & Plan: High risk for falls due to recent illness and deconditioning. Transfer to SNF for rehabilitation with PT/OT services. Encourage out-of-bed activity with assistance. Code(s): R29.6 - REPEATED FALLS (5) Diabetes mellitus Current Visit: Yes Status: Acute Assessment & Plan: see DKA Code(s): E11.9 - TYPE 2 DIABETES MELLITUS WITHOUT COMPLICATIONS (6) CHERIE (acute kidney injury) Current Visit: Yes Status: Acute Assessment & Plan: Likely multifactorial from dehydration and DKA. Creatinine improved to baseline Continue monitoring CMP periodically. Avoid nephrotoxins. Code(s): N17.9 - ACUTE KIDNEY FAILURE, UNSPECIFIED (7) BPH (benign prostatic hyperplasia) Current Visit: Yes Status: Acute Assessment & Plan: Previously required Watts catheter; now voiding independently. Continue Flomax. Monitor post-void residuals and urinary function. Follow-up with Urology recommended. Code(s): N40.0 - BENIGN PROSTATIC HYPERPLASIA WITHOUT LOWER URINRY TRACT SYMP (8) HTN (hypertension) Current Visit: Yes Status: Acute Assessment & Plan: Stable during admission. Continue home antihypertensive regimen. Code(s): I10 - ESSENTIAL (PRIMARY) HYPERTENSION (9) GERD (gastroesophageal reflux disease) Current Visit: Yes Status: Acute Assessment & Plan: Continue Protonix Code(s): K21.9 - GASTRO-ESOPHAGEAL REFLUX DISEASE WITHOUT ESOPHAGITIS (10) Hyperkalemia Current Visit: No Status: Acute Assessment & Plan: resolved Code(s): E87.5 - HYPERKALEMIA (11) Generalized weakness Current Visit: Yes Status: Acute Assessment & Plan: see fall Code(s): R53.1 - WEAKNESS - Discharge Discharge Date: 10/22/24 Disposition: DC TO ANY "OTHER" USP Condition: Stable Prescriptions: New Insulin Lispro [Humalog] See Rx Instructions .ROUTE .COMPLEX 30 Days #1350 units MDD 45 units Insulin Glargine [Lantus Insulin] 15 unit SQ BID@0800,2000 unit Tamsulosin HCl [Flomax] 0.4 mg PO DAILY 30 Days #30 cap Continue Candesartan Cilexetil 32 mg PO DAILY Rosuvastatin Calcium [Crestor] 10 mg PO HS [place]-3/Dha/Epa/Fish Oil [Fish Oil 500 mg Softgel] 500 mg PO DAILY Aspirin EC 81 mg [Ecotrin 81 mg] 81 mg PO DAILY Sertraline HCl [Zoloft] 100 mg PO DAILY Discontinued Insulin Glargine,Hum.rec.anlog [Basaglar Kwikpen U-100] 120 unit SQ DAILY Semaglutide [Ozempic] 0.25 mg SQ WEEKLY Empagliflozin [Jardiance] 10 mg PO DAILY Metformin HCl 1,000 mg PO BID Additional Instructions: USP ORDERS: ADMIT TO CARE HOME FACILITY 1999 [address]ON[address] DIET ACCU CHECK Q4H Moderate dose SSI BG <150 mg/dL - 0 units BG 209488 mg/dL -3 units BG 601339 mg/dL - 5 units BG 271175 mg/dL -7 units BG 677843 mg/dL -9 units BG 586937 mg/dL - 11 units BG greater than 400 mg/dL - 15 units, recheck BG in 12 hours, and notify provider PT/OT EVAL AND TREAT SEE ATTACHED MED LIST Follow up with: JUJU HICKS [COURTESY STAFF, UROLOGY] - Office will call patient Referral Note: FRANCO FROM OFFICE(PCP) WILL SEND A REFERRAL TO 'S OFFICE [facility] [NON-STAFF PHY W/O PRIVILEGES, UNKNOWN] - 11/20/24 3:00 pm Referral Note: [address] Viktoria Gannon. IN ARRIVE 10 MIN EARLIER FOR PAPAERWORK
[2024-10-22 13:38] VITALS: BP 139/70
[2024-10-22] MEDS ORDERED: Lantus Insulin SQ SCH (20:00)
== END 2024-10-22 13:52 | DRG 637 ==
LOC: ED 11:43 → ICU 16:21
PROVIDERS: ADMIT Internal Medicine; ATTEND Internal Medicine
DX: E11.10 Type 2 diabetes mellitus with ketoacidosis without coma (principal); A41.9 Sepsis, unspecified organism; N17.9 Acute kidney failure, unspecified; R53.1 Weakness; E87.5 Hyperkalemia; E86.0 Dehydration; N32.89 Other specified disorders of bladder; R29.6 Repeated falls; N40.0 Benign prostatic hyperplasia without lower urinary tract symptoms; I10 Essential (primary) hypertension; Z79.899 Other long term (current) drug therapy; K21.9 Gastro-esophageal reflux disease without esophagitis
CPT/HCPCS: 36415; 36600; 51702; 70450; 71045; 74176; 80048; 80053; 81001; 82077; 82375; 82803; 82805; 82947; 83036; 83605; 83690; 83735; 83880; 84100; 84132; 84484; 85025; 85610; 85730; 87040; 87637; 93005; 94640; 94770; 96360; 96365; 96374; 99291; 99292; Q3014